=== PATIENT | male | born 1930 | race Caucasian/White ===

== ENCOUNTER → 2016-09-12 | Outpatient (CLI) | payer MEDICARE, OTHER ==
[~2016-09-12] MED LIST: ALBUTEROL0.09 MG/A2 INH; ASPIRIN81 M2 PO; ATIVAN0.5 MG PO; AUGMENTIN 875875 MG PO; BACITRACIN500 U/G1; BACTRIM DS 8001 TA1 PO; BUDESONIDE INH; CAPSAICIN T; CHEST CONGESTI400 MG PO; CIPRO500 MG PO; CITALOPRAM HYDR10 MG PO; CITALOPRAM10 MG PO; DELTASONE20 MG; DELTASONE20 MG PO; DESYREL100 MG PO; DIABETIC TUSSI400 MG PO; DIFLUCAN200 MG PO; DOCUSATE CALCI100 MG PO; DOCUSATE SOD100 MG PO; ECPIRIN325 MG PO; Ecotrin325 MG PO; FLAGYL500 MG PO; FLOMAX0.4 MG PO; FLORASTOR 33 MG1 CAP PO; FLUONAZOLE100 M1 PO; FOLIC ACID1 MG PO; GABAPENTIN300 MG PO; GUAFENESIN400 MG PO; GUAIFENESIN400 MG PO; HYDROCODONE BIT1 T11 PO; HYDROXYZINE HCL25 M1 PO; HYDROXYZINE PAM25 M1 PO; KEFLEX500 MG PO; KENALOG 0.025%15 G1 T; KENALOG 0.1%80 GM T; LANAMINS1 CAP PO; LASIX40 MG PO; LEVAQUIN750 M1 PO; LISINOPRIL PO; LISINOPRIL5 MG PO; LORAZEPAM1 MG PO; Lovenox40 MG/0.4 SC; METOPROLOL25 MG; METRONIDAZOLE500 M1 PO; MIRALAX17 GM/PACK PO; MOBIC15 MG PO; MONTELUKAST SOD10 MG PO; MOTRIN800 MG PO; MULTI VITAMIN/M1 TAB PO; MULTI-VITAMIN W1 TA2 PO; NATURE'S BLEND F1 MG PO; NEURONTIN300 MG PO; NITROQUICK0.4 MG SL; NORCO 7.5-3251 EACH PO; OMEPRAZOLE D/R20 MG; OMEPRAZOLE MAGN20 M1 PO; OMEPRAZOLE20 MG PO; OMEPRAZOLE40 MG PO; OXYCODONE15 MG PO; PREDNISONE10 MG PO; PROVENTIL0.09 MG/A1 INH; PROVENTIL0.09 MG/AC IH; PULMICORT180 MCG/AC IH; Percocet 325 MG1 TAB PO; REFRESH PLUS 00.4 M1 OP; REQUIP1 MG PO; RIFAMPIN300 MG PO; ROPINIROLE HYDRO1 MG PO; Ranitidine Hyd150 MG PO; SENNA8.6 MG PO; SIMVASTATIN80 MG PO; SINGULAIR10 MG PO; SKELAXIN800 MG PO; STOOL SOFTENER240 M2 PO; SYMBICORT1 AE1 PO; TERAZOSIN HCL1 M1 PO; TERAZOSIN HCL5 M1 PO; TERAZOSIN5 MG PO; TRAMADOL HCL50 MG PO; TRAZADONE HYDR100 MG PO; TRAZODONE100 MG PO; TRAZODONE150 MG PO; TRIAMCINOLONE; VANCOCIN1000 MG/25 IV; ZOFRAN4 MG PO; [UNRECOGNIZED DRUG - CODE] PO; [UNRECOGNIZED DRUG - CODE] T; [UNRECOGNIZED DRUG - CODE] TP; [UNRECOGNIZED DRUG - OTHER]; [UNRECOGNIZED DRUG - OTHER]
== END | disposition home or self-care (01) ==
LOC: RAD 13:01
DX: M47.896 Other spondylosis, lumbar region (principal); M48.06 Spinal stenosis, lumbar region; M46.06 Spinal enthesopathy, lumbar region; Z96.642 Presence of left artificial hip joint

== ENCOUNTER 2016-10-25 10:27 | Emergency (ER) | payer OTHER, MEDICARE ==
[~2016-10-25] VITALS: Ht 187.9 cm; Wt 108.9 kg
[2016-10-25 11:35] LABS: BASO # 0.1 10*3/uL (0.0-0.1); BASO % 1.2 % (0.0-1.0); EOS # 0.3 10*3/uL (0.0-0.4); EOS % 4.4 % (1.0-4.0); HEMATOCRIT 40.8 % (42.0-52.0); HEMOGLOBIN 13.7 g/dl (14.0-18.0); LYMPH # 0.8 10*3/uL (1.3-4.4); LYMPH % 14.5 % (27.0-41.0); MEAN CELL VOLUME 94.2 fl (80.0-94.0); MEAN CORPUSCULAR HGB 31.6 pg (27.0-31.0); MEAN CORPUSCULAR HGB CONC 33.6 g/dl (33.0-37.0); MONO # 0.3 10*3/uL (0.1-1.0); NEUT # 4.2 10*3/uL (2.3-7.9); NEUT % 73.5 % (47.0-73.0); PLATELET COUNT AUTOMATED 113 10*3/uL (130-400); RED BLOOD COUNT 4.33 10*6/uL (4.50-5.90); RED CELL DISTRI WIDTH 12.5 % (0-14.5); WHITE BLOOD COUNT 5.7 10*3/uL (4.8-10.8)
[2016-10-25 11:49] LABS: ALBUMIN 3.6 gm/dl (3.1-4.5); ALKALINE PHOSPHATASE 73 U/L (45-117); BUN 10 mg/dl (7-24); CHLORIDE 105 mmol/L (98-107); POTASSIUM 3.8 mmol/L (3.5-5.1); SGOT/AST 19 IU/L (3-35); SGPT/ALT 24 U/L (12-78); SODIUM 144 mmol/L (136-145); TOTAL PROTEIN 6.7 gm/dL (6.4-8.2)
[2016-10-25] MEDS ORDERED: VIBRAMYCIN100 MG PO (13:08)
== END 2016-10-25 13:58 | disposition home or self-care (01) ==
LOC: ED 10:27
PROVIDERS: Emergency Medicine
DX: J40 Bronchitis, not specified as acute or chronic (principal); J44.9 Chronic obstructive pulmonary disease, unspecified; I11.0 Hypertensive heart disease with heart failure; I50.9 Heart failure, unspecified; K21.9 Gastro-esophageal reflux disease without esophagitis; E78.5 Hyperlipidemia, unspecified; J45.909 Unspecified asthma, uncomplicated; E11.9 Type 2 diabetes mellitus without complications; Z88.8 Allergy status to other drugs, medicaments and biological substances; Z91.041 Radiographic dye allergy status; Z79.899 Other long term (current) drug therapy; Z87.891 Personal history of nicotine dependence

== ENCOUNTER 2017-03-31 15:28 | Inpatient (IN) | payer OTHER ==
[~2017-03-31] VITALS: Ht 187.9 cm; Wt 105.9 kg
--- NOTE | ~2017-03-31 | PR ---
[place], [place] PROGRESS NOTE NAME: [facility]ATT [facility] [id number] UNIT #: [id number] ROOM: 506 DOCTOR: BILLY ALONSO MD,HARINDER BIRTHDATE: [birth year] DOS: 04/03/2017 PULMONARY FOLLOWUP SUBJECTIVE: He has been noted comfortable with ongoing acute distress. The patient denies symptoms of chest pain. The coughing and shortness of breath and other symptoms, has been improving. It has been noted dysphagia for the patient with a past history of esophageal narrowing, which are noted benign. PHYSICAL EXAMINATION: VITAL SIGNS: Normal temperature, respiratory rate 20, heart rate 77, blood pressure 128/76. The pulse oxygen saturation on 3 liters nasal cannula was 94% saturation. HEENT: Moderate obesity. NECK: Supple. CARDIOVASCULAR: S1, S2 audible. LUNGS: Noted without any crackles. Scattered expiratory wheezing in the lower lungs. ABDOMEN: Soft, nontender with chronic obesity. Bowel sounds present. EXTREMITIES: Without edema. LABORATORY DATA: CBC of patient this morning noted normal. BMP: Glucose 117, normal BUN and creatinine. IMPRESSION: Acute exacerbation of bronchial asthma impaction and mucus for the patient in the lower lungs is clinically improving of all the symptoms. PLAN OF TREATMENT: Benign esophageal stricture, would be requiring assessment by the GI Services. Continue current corticosteroids, bronchodilators, oxygen supplementation. Other therapy, plan of management. Usual care. HARINDER CERVANTES MD CM:PNTRANS [id number] HARINDER ALONSO MD 04/04/17 0022 interface
--- NOTE | ~2017-03-31 | EKG ---
[place], [place] ELECTROCARDIOGRAM REPORT NAME: MARLY PRATT UNIT #: [id number] ROOM: 506 DOCTOR: SUZANNE VARGAS MD BIRTHDATE: [birth year] DOS: 03/31/2017 TIME: 1540 hours. Normal sinus rhythm at 97 beats per minute. Left anterior hemiblock. An abnormal ECG. No previous tracing is available for comparison. TIME: 1833 hours. Normal sinus rhythm at 80 beats per minute. An intraventricular conduction defect including left anterior hemiblock. An abnormal ECG. No significant change from ECG done about 3 hours earlier. TIME: 2136 hours. Normal sinus rhythm at 81 beats per minute. An intraventricular conduction defect including left anterior hemiblock. An abnormal ECG. No significant change from the ECG done about 3 hours earlier. TIME: 0412 hours. Sinus tachycardia at 112 beats per minute. PACs are also noted. An intraventricular conduction defect including left anterior hemiblock. Abnormal ECG. No significant change from the ECG done about 7 hours earlier. [place], [place] ELECTROCARDIOGRAM REPORT NAME: MARLY PRATT [place] UNIT #: [id number] ROOM: 506 DOCTOR: SUZANNE VARGAS MD BIRTHDATE: [birth year] SUZANNE VARGAS MD CM:EKGRPT:ELECTROCARDIOGRAM REPORT 1654 28 SUZANNE VARGAS MD
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
--- NOTE | ~2017-03-31 | O ---
[place], [place] OPERATIVE NOTE NAME: MARLY PRATT UNIT #: [id number] ROOM: 506 DOCTOR: KKEE GARCIA MD BIRTHDATE: [birth year] DOS: 04/03/2017 INDICATIONS: An 87-year-old gentleman who presented with multiple complaints, among which has been shortness of breath, concern about pneumonic infiltrate, dysphagia, history of vocal cord carcinoma and resection, and dysphagia and dyspepsia. PROCEDURE: Today's procedure part of investigation is panendoscopy plus esophageal brush and antral biopsy of the ulcers. PREMEDICATION: Versed and Diprivan. SCOPE: Olympus forward-viewing gastroscope Q10 video. REPORT: After putting the patient in left lateral position and application of lubricant to the scope, the scope was introduced. Thereafter, under direct visualization, passed through the length of esophagus without difficulty. Interrupted esophageal varicosities from thoracic to distal esophagus was noticed. These are about class B to C as well as esophagitis secondary to moniliasis, mostly in upper esophagus, noticed photographed. Pine for fungal study was done. Gastric pouch was entered. Multiple linear antral ulceration and antritis was identified. Biopsy obtained. Duodenal bulb, second and third part within normal limits. The patient extubated, tolerated the procedure well. IMPRESSION: 1. Antral ulcerations and antritis. 2. Esophageal moniliasis status for fungal study with brush. 3. Esophageal varicosities. 4. Small hiatal hernia. PLAN AND DISCUSSION: Continuation with beta chrissy, Protonix 40 mg daily, Diflucan 100 mg daily x 1 week and supportive management. No esophageal dilation was undertaken due to the presence of esophageal varicosities. [place], [place] OPERATIVE NOTE NAME: MARLY PRATT UNIT #: [id number] ROOM: 506 DOCTOR: KEKE GARCIA MD BIRTHDATE: [birth year] KEKE GARCIA MD CM:OPRECORD:OPERATIVE NOTE 1524 1536 KEKE GARCIA MD 04/03/17 1535 interface
--- NOTE | ~2017-03-31 | CON ---
[place], [place] REPORT OF CONSULTATION NAME: MARLY PRATT UNIT #: [id number] ROOM: 506 DOCTOR: KEKE GARCIA MD BIRTHDATE: [birth year] DOS: 04/03/2017 HISTORY OF PRESENT ILLNESS: The patient is an 87-year-old, who has presented with dysphagia, atypical chest pain, status post cardiac stress test and evaluation by care transition coordinator and declaring clear for endoscopic assessment. The patient has been complaining of epigastric and left pectoral pain with radiation to left shoulder as well as dysphagia, history of vocal cord carcinoma, status post radiation therapy in 2014. His panel of workup including rapid flu was negative, white blood cell 5, H and H 14 and 41, lactic acid was 1.7, INR 1.1. Comprehensive metabolic panel, GFR greater than 60. Initial elevated troponin, considered unremarkable. Liver function test normal. Chest x-ray was assessed, borderline cardiomegaly. Troponin followup continuously remains slightly elevated. Hemoglobin A1c elevated at 5.7. CTA of the chest: No pulmonary embolism, lower lobe predominant diffuse bronchial wall thickening with calcification of bilateral lower lobe rhonchi was noticed. Blood cultures remain negative. CBC differential was reassessed. No acute drop in H and H. Myocardial perfusion studies have been done and found resolved, clear for endoscopic assessment. PAST MEDICAL HISTORY: Associated with COPD, lumbar stenosis, chronic hypoxemia, restless leg, depression, sleep apnea, bronchial asthma. PAST SURGICAL HISTORY: Associated with cholecystectomy, appendectomy, abdominal aortic aneurysm repair, inguinal hernia repair. SOCIAL HISTORY: Nonalcohol consumer, nonsmoker at the present time. FAMILY HISTORY: Noncontributory. MEDICATION: List was reviewed. ALLERGIES: EFFEXOR, FELODIPINE, ADENOSINE, AND IVP DYE. REVIEW OF SYSTEMS: In general: HEENT: Denies double vision, blurred vision. RESPIRATORY: Admits chronic shortness of breath. CARDIOVASCULAR: Denies chest pain. DIGESTIVE SYSTEM: Dysphagia to solid food with sensation of foreign body in the upper esophagus, hypopharynx area. PHYSICAL EXAMINATION: GENERAL: Obese patient. VITAL SIGNS: Stable. HEENT: Head normocephalic, nontraumatic. Eyes: Pupils round, reactive. Sclerae nonicteric. Conjunctivae pink. Mouth free of aphthae ulcer or thrush. NECK: Supple. No thyromegaly. No cervical lymphadenopathy. CHEST: Symmetric anatomy, equal expansion. No wheeze; however, a few crackles bibasilar was noticed. ABDOMEN: Obese, large, soft. No hepato-organomegaly. Scar of surgery was noticed. No rebound effect tenderness. [place], [place] REPORT OF CONSULTATION NAME: MARLY PRATT UNIT #: [id number] ROOM: 506 DOCTOR: KEKE GARCIA MD BIRTHDATE: [birth year] EXTREMITIES: No cyanosis. No pedal edema. NEUROLOGIC: Alert, oriented to time, place, person. LABORATORY DATA: Reviewed. Records reviewed. Data reviewed. IMPRESSION: Dysphagia, otherwise chronic obstructive pulmonary disease, oxygen dependency, vocal cord carcinoma, status post radiation therapy. Other adjunctive diagnoses are restless leg, lumbar stenosis, depression, sleep apnea, all have been recognized. PLAN AND DISCUSSION: I am going to proceed with endoscopic assessment and discussion not only we are going to be concerned about esophageal moniliasis, also we are going to have a distant look at the vocal cords and upper esophagus to assure there is no radiation-induced stricture. Workup is in progress. OTHER ADJUNCTIVE DIAGNOSES: As outlined in the above paragraph of past medical and surgical history. KEKE GARCIA MD CM:CONSTR:REPORT OF CONSULTATION 1501 04/04/17 0148 interface
--- NOTE | ~2017-03-31 | ST ---
[place], [place] EXERCISE STRESS TEST REPORT [id number] UN[facility] #: [id number] ROOM: 506 DOCTOR: VANDA CEDENO MD BIRTHDATE: [birth year] DOS: 04/03/2017 LEXISCAN STRESS EKG REFERRING PHYSICIAN: Lakia Pizarro DO INDICATION: Precordial chest pain. The patient underwent standard protocol Lexiscan stress EKG. The patient's baseline EKG showed normal sinus rhythm with his heart rate of 72 beats per minute with a blood pressure of 116/78. The patient had maximum heart rate of 84 beats per minute with a blood pressure of 100/54. The patient had no chest pain, no EKG changes. No arrhythmias were noted. SUMMARY OF FINDINGS: Unremarkable Lexiscan stress EKG. Please see separate report for perfusion scan results. VANDA CEDENO MD CM:STRESS:EXERCISE STRESS TEST REPORT [id number] VANDA CEDENO MD
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
--- NOTE | ~2017-03-31 | CON ---
[place], [place] REPORT OF CONSULTATION [id number] UNIT #: [id number] ROOM: 506 DOCTOR: HARINDER HERNANDEZ MD BIRTHDATE: [birth year] DOS: 04/02/2017 CONSULTATION REQUESTED BY: Hospitalist Service. REASON FOR CONSULTATION: Current chest pain and shortness of breath. HISTORY OF PRESENT ILLNESS: This is an 87-year-old white male known to me with past history of COPD and bronchial asthma. The patient admitted to the hospital on 03/31/2017. He was described nonspecific, anterior mid chest pain described moderate severe at time with significant shortness of breath. The patient presented to the Emergency Room on the of this month, was assessed and currently hospitalized for further medical management. He denies any symptoms of chest pain. Denies symptoms of hemoptysis. The chest pain previous noted was resolved. The patient denies any symptoms of sputum expectoration, mild cough was noted. He also reports some symptoms of wheezing as well. The patient denies any symptoms of chest trauma. REVIEW OF SYSTEMS: CONSTITUTIONAL SYMPTOMS: Denies any symptoms of fever or chills. Complaint of fatigue and diaphoresis with the current chest pain, which has been resolved. EYES: Denies any burning, redness, or tenderness. EARS, NOSE, THROAT SYMPTOMS: Denies sore throat, hoarseness, otalgia, postnasal drainage or epistaxis. CARDIOVASCULAR: Denies any angina pain. Reported palpitation. The patient on admission, which has been better. MUSCULOSKELETAL: Denies any acute joint pain, redness, or tenderness. SKIN: No lesions or rashes. CENTRAL NERVOUS SYSTEM: No gross focal deficit. It was intact. Cranial nerves 2-12 intact. PAST MEDICAL HISTORY: The patient was known with history of: 1. Bronchial asthma. 2. COPD of moderate severity. 3. Lumbar stenosis. 4. Chronic hypoxic respiratory failure. 5. History of depression. 6. Restless legs syndrome. 7. Obstructive sleep apnea disorder. The [facility]. PAST SURGICAL HISTORY: 1. Appendectomy. 2. Cholecystectomy. 3. Abdominal aortic aneurysm repair. 4. Left inguinal hernia repair as well. SOCIAL HISTORY: The patient is , has 4 children. Denies history of alcohol use, illicit drug use. Denies any history of the occupation related pulmonary exposure. [place], [place] REPORT OF CONSULTATION NAME: MARLY PRATT UNIT #: [id number] ROOM: 506 DOCTOR: HARINDER HERNANDEZ MD BIRTHDATE: [birth year] FAMILY HISTORY: The patient's father at 65 due to complications of COPD. Mother at the age of 8080 years old from natural causes. MEDICATIONS: Which were listed on admission by the primary care physician for the patient use of Tylenol p.r.n., Colace, folic acid, gabapentin, Singulair, multivitamin, Requip, trazodone and tramadol. DRUG ALLERGIES: NOTED ALLERGY: 1. ADENOSINE. 2. FELODIPINE. 3. EFFEXOR. 4. IVP DYE. PHYSICAL EXAMINATION: GENERAL: An 87-year-old male currently sitting on the chair without any acute distress. Height of 6 feet 2 inches, weight of 233 pounds, BMI 30. VITAL SIGNS: Normal temperature, respiratory rate recorded as 18-20, heart rate of 120. The highest previous noted, but current heart rate noted 88 beats per minute. The respiratory rate range between 20. Blood pressure 122/67 and 117/59, pulse oxygen saturation 3 liters cannula 93% saturation recorded. HEAD, EARS, EYES, NOSE AND THROAT: Moderate obesity. Head was atraumatic. Eye nonicterus. Decreased posterior pharyngeal space. CARDIOVASCULAR: S1, S2 is audible. LUNGS: The patient was noted with moderate reduction in the breath sounds bilaterally with minimal crackles noted in the lung bases. There were no wheezing heard. ABDOMEN: Soft. EXTREMITIES: Without any edema. Visible skin, no lesions or rashes. CENTRAL NERVOUS SYSTEM: Intact. MUSCULOSKELETAL SYMPTOMS: Without any acute deformities. LABORATORY DATA: Influenza A and B, nasal washing antigen negative. On admission 03/31, CBC, hemoglobin was normal, hematocrit 41.9, platelet count and WBC count normal. PT/PTT on 03/31, normal. Lactic acid on 03/31, normal. BMP on 03/31, was normal. Troponin noted minimally elevated at 0.03. The highest troponin noted 3 sets at 0.074 on 03/31. The blood culture for on 03/31/2017, showed no bacterial growths. Review of the radiology data: The chest x-ray that was done on 04/01/2017, shows no acute major abnormality, increased interstitial marking noted of unknown significance, changes of COPD. IMPRESSION: CT of the chest was completed this morning, was personally reviewed as well, it does not show any evidence of pulmonary embolism. Mucous infection was suspected in the lower lobe subsegment branches more on the right than the left side. There were no pleural effusions of significance. IMPRESSION: 1. The patient who had been currently admitted to the hospital with a nonspecific chest pain, exact etiology cannot be pinpointed, noted with some mucus impaction of the airways at the bottom may be suggestive of acute exacerbation of bronchial asthma. The patient with acute possible bronchitis. [place], [place] REPORT OF CONSULTATION NAME: MARLY PRATT UNIT #: [id number] ROOM: [facility] DOCTOR: HARINDER HERNANDEZ MD BIRTHDATE: [birth year] There was no evidence of clinical pneumonia. 2. The patient with moderate obesity with history of obstructive sleep apnea disorder, known problem and acute chronic, hypoxic respiratory failure, remains stable. PLAN OF MANAGEMENT: The patient will be started on the Mucinex 1200 mg p.o. b.i.d. and the use of the flutter valve. Sputum will be collected for Gram stain and culture. Other additional treatment changes might be done based on the progression of the illness. Usual care. All other supportive care, plan of management and therapies. Symptomatic management monitoring. The significance of abnormal troponin was unknown. Cardiology consultation to be done if not obtained to get their opinion about the abnormal troponins. HARINDER CERVANTES MD CM:CONSTR:REPORT OF CONSULTATION 1302 04/02/172024 interface
[~2017-03-31 15:28] MED LIST changes: +VIBRAMYCIN100 MG PO
[2017-03-31 15:34] VITALS: BP 124/84
[2017-03-31 16:05] VITALS: BP 128/82
[2017-03-31 16:19] LABS: BASO # 0.1 10*3/uL (0.0-0.1); EOS # 0.2 10*3/uL (0.0-0.4); EOS % 4.7 % (1.0-4.0); HEMATOCRIT 41.9 % (42.0-52.0); HEMOGLOBIN 14.2 g/dl (14.0-18.0); LYMPH % 18.5 % (27.0-41.0); MEAN CELL VOLUME 94.8 fl (80.0-94.0); MEAN CORPUSCULAR HGB 32.1 pg (27.0-31.0); MEAN CORPUSCULAR HGB CONC 33.9 g/dl (33.0-37.0); MEAN PLATELET VOLUME 9.4 fl (9.6-12.3); MONO # 0.5 10*3/uL (0.1-1.0); MONO % 8.8 % (3.0-9.0); NEUT # 3.4 10*3/uL (2.3-7.9); NEUT % 66.6 % (47.0-73.0); PLATELET COUNT AUTOMATED 111 10*3/uL (130-400); RED BLOOD COUNT 4.42 10*6/uL (4.50-5.90); RED CELL DISTRI WIDTH 12.2 % (0-14.5); WHITE BLOOD COUNT 5.1 10*3/uL (4.8-10.8)
[2017-03-31 16:27] LABS: ACT PARTIAL THROMBO TIME 26.5 SECONDS (20.8-31.5); INTERNATIONAL NORM RATIO 1.1 (2.0-3.5)
[2017-03-31 16:35] LABS: BUN 14 mg/dl (7-24); CHLORIDE 106 mmol/L (98-107); CREATININE 0.76 mg/dL (0.70-1.30); POTASSIUM 3.6 mmol/L (3.5-5.1); SGOT/AST 21 IU/L (3-35); SGPT/ALT 22 U/L (12-78); SODIUM 143 mmol/L (136-145); TOTAL PROTEIN 6.8 gm/dL (6.4-8.2)
[2017-03-31 16:38] LABS: ALKALINE PHOSPHATASE 63 U/L (45-117)
[2017-03-31 16:40] LABS: TROPONIN I 0.083 ng/ml (<0.045)
[2017-03-31 17:11] VITALS: BP 123/67
[2017-03-31 17:21] VITALS: BP 123/67
[2017-03-31 18:30] VITALS: BP 130/78
[2017-03-31 19:20] VITALS: BP 160/92
[2017-04-01] VITALS (8 sets, daily range): BP systolic 121–174; BP diastolic 62–90
[2017-04-01 06:05] LABS: HEMATOCRIT 40.2 % (42.0-52.0); HEMOGLOBIN 13.8 g/dl (14.0-18.0); LYMPH # 0.6 10*3/uL (1.3-4.4); LYMPH % 10.5 % (27.0-41.0); MEAN CELL VOLUME 94.6 fl (80.0-94.0); MEAN CORPUSCULAR HGB 32.5 pg (27.0-31.0); MEAN CORPUSCULAR HGB CONC 34.3 g/dl (33.0-37.0); MEAN PLATELET VOLUME 9.8 fl (9.6-12.3); MONO # 0.1 10*3/uL (0.1-1.0); NEUT # 5.2 10*3/uL (2.3-7.9); PLATELET COUNT AUTOMATED 109 10*3/uL (130-400); RED BLOOD COUNT 4.25 10*6/uL (4.50-5.90); RED CELL DISTRI WIDTH 12.3 % (0-14.5); WHITE BLOOD COUNT 5.9 10*3/uL (4.8-10.8)
[2017-04-01 06:08] LABS: BUN 12 mg/dl (7-24); CHLORIDE 103 mmol/L (98-107); CHOLESTEROL 212 mg/dL (<200); CREATININE 0.91 mg/dL (0.70-1.30); FREE T4 0.85 ng/dl (0.76-1.46); HDL CHOLESTEROL 51 mg/dl (40-60); LDL CHOLESTEROL 146 mg/dL (9-159); PHOSPHOROUS 2.2 mg/dL (2.5-4.9); POTASSIUM 3.8 mmol/L (3.5-5.1); SODIUM 140 mmol/L (136-145); TRIGLYCERIDES 77 mg/dl (<150); VLDL CHOLESTEROL 15 mg/dL (6-40)
[2017-04-01 06:14] LABS: THYROID STIM HORMONE (HS) 0.586 uIU/ml (0.358-4.75)
[2017-04-01 07:32] LABS: VITAMIN D, 25-HYDROXY 23.6 ng/mL (30-100)
[2017-04-01] MEDS ORDERED: MONTELUKAST SOD10 MG PO (10:49)
[2017-04-01] MEDS ORDERED: NATURE'S BLEND F1 MG PO (10:52)
[2017-04-01] MEDS ORDERED: GABAPENTIN100 M2 PO (10:53)
[2017-04-01] MEDS ORDERED: ACETAMINOPHEN325 M2 PO (10:54)
[2017-04-02] VITALS: BP 117/59
[2017-04-02 07:17] LABS: BASO % 0.1 % (0.0-1.0); HEMATOCRIT 40.3 % (42.0-52.0); HEMOGLOBIN 13.7 g/dl (14.0-18.0); LYMPH # 0.9 10*3/uL (1.3-4.4); MEAN CELL VOLUME 95.3 fl (80.0-94.0); MEAN CORPUSCULAR HGB 32.4 pg (27.0-31.0); MONO # 0.2 10*3/uL (0.1-1.0); MONO % 2.2 % (3.0-9.0); NEUT # 9.5 10*3/uL (2.3-7.9); NEUT % 89.2 % (47.0-73.0); PLATELET COUNT AUTOMATED 115 10*3/uL (130-400); RED BLOOD COUNT 4.23 10*6/uL (4.50-5.90); RED CELL DISTRI WIDTH 12.5 % (0-14.5); WHITE BLOOD COUNT 10.6 10*3/uL (4.8-10.8)
[2017-04-02 07:39] LABS: BUN 17 mg/dl (7-24); CHLORIDE 102 mmol/L (98-107); CREATININE 0.86 mg/dL (0.70-1.30); PHOSPHOROUS 3.1 mg/dL (2.5-4.9); POTASSIUM 3.9 mmol/L (3.5-5.1); SODIUM 139 mmol/L (136-145)
[2017-04-02 08:00] VITALS: BP 122/67
[2017-04-02 12:00] VITALS: BP 125/71
[2017-04-02 16:00] VITALS: BP 114/58
[2017-04-02 19:58] VITALS: BP 127/61
[2017-04-03] VITALS (8 sets, daily range): BP systolic 109–160; BP diastolic 56–86
[2017-04-03 06:49] LABS: BASO % 0.1 % (0.0-1.0); HEMATOCRIT 41.9 % (42.0-52.0); HEMOGLOBIN 14.1 g/dl (14.0-18.0); LYMPH # 0.7 10*3/uL (1.3-4.4); LYMPH % 6.9 % (27.0-41.0); MEAN CELL VOLUME 94.8 fl (80.0-94.0); MEAN CORPUSCULAR HGB 31.9 pg (27.0-31.0); MEAN CORPUSCULAR HGB CONC 33.7 g/dl (33.0-37.0); MEAN PLATELET VOLUME 9.8 fl (9.6-12.3); MONO # 0.3 10*3/uL (0.1-1.0); MONO % 3.3 % (3.0-9.0); NEUT # 9.1 10*3/uL (2.3-7.9); NEUT % 88.8 % (47.0-73.0); PLATELET COUNT AUTOMATED 136 10*3/uL (130-400); RED BLOOD COUNT 4.42 10*6/uL (4.50-5.90); RED CELL DISTRI WIDTH 12.4 % (0-14.5); WHITE BLOOD COUNT 10.2 10*3/uL (4.8-10.8)
[2017-04-03 06:51] LABS: BUN 17 mg/dl (7-24); CHLORIDE 101 mmol/L (98-107); CREATININE 0.86 mg/dL (0.70-1.30); PHOSPHOROUS 2.4 mg/dL (2.5-4.9); POTASSIUM 3.5 mmol/L (3.5-5.1); SODIUM 140 mmol/L (136-145)
[2017-04-03] MEDS ORDERED: FLUCONAZOLE100 MG PO (16:42)
[2017-04-03] MEDS ORDERED: PANTOPRAZOLE SO40 MG PO (16:42)
[2017-04-03] MEDS ORDERED: ATORVASTATIN CA40 M1 PO (16:42)
[2017-04-03] MEDS ORDERED: LOPRESSOR25 MG PO (16:42)
[2017-04-03] MEDS ORDERED: PREDNISONE10 MG PO (16:42)
[2017-04-03] MEDS ORDERED: VIBRAMYCIN100 MG PO (16:42)
[2017-04-03] MEDS ORDERED: VITAMIN D-32000 UNIT PO (16:42)
== END 2017-04-03 18:47 | disposition short-term general hospital (02) | DRG 391 ==
LOC: ED 15:28 → EDHOLD 18:00 → 5E 18:00
PROVIDERS: Internal Medicine Nephrology; Nurse Practitioner Family; Student in an Organized Health Care Education/Training Program
PROC: 3E073KZ Introduction of Other Diagnostic Substance into Coronary Artery, Percutaneous Approach (ICD-10-PCS; principal; 2017-04-03)
PROC: 0DD18ZX Extraction of Upper Esophagus, Via Natural or Artificial Opening Endoscopic, Diagnostic (ICD-10-PCS; principal; 2017-04-03)
PROC: 0DB78ZX Excision of Stomach, Pylorus, Via Natural or Artificial Opening Endoscopic, Diagnostic (ICD-10-PCS; principal; 2017-04-03)
PROC: 4A02XM4 Measurement of Cardiac Total Activity, External Approach (ICD-10-PCS; principal; 2017-04-03)
DX: K21.9 Gastro-esophageal reflux disease without esophagitis (principal); J96.21 Acute and chronic respiratory failure with hypoxia; T17.890A Other foreign object in other parts of respiratory tract causing asphyxiation, initial encounter; B37.81 Candidal esophagitis; D69.6 Thrombocytopenia, unspecified; E83.39 Other disorders of phosphorus metabolism; R65.10 Systemic inflammatory response syndrome (SIRS) of non-infectious origin without acute organ dysfunction; I50.32 Chronic diastolic (congestive) heart failure; I85.00 Esophageal varices without bleeding; J44.1 Chronic obstructive pulmonary disease with (acute) exacerbation; J45.901 Unspecified asthma with (acute) exacerbation; E83.41 Hypermagnesemia; R13.10 Dysphagia, unspecified; I71.4 Abdominal aortic aneurysm, without rupture; J20.9 Acute bronchitis, unspecified; D75.89 Other specified diseases of blood and blood-forming organs; F32.9 Major depressive disorder, single episode, unspecified; E78.5 Hyperlipidemia, unspecified; F41.9 Anxiety disorder, unspecified; F43.10 Post-traumatic stress disorder, unspecified; R59.0 Localized enlarged lymph nodes; E66.9 Obesity, unspecified; Z96.642 Presence of left artificial hip joint; Z96.652 Presence of left artificial knee joint; X58.XXXA Exposure to other specified factors, initial encounter; M48.061 Spinal stenosis, lumbar region without neurogenic claudication; G25.81 Restless legs syndrome; G47.33 Obstructive sleep apnea (adult) (pediatric); K25.9 Gastric ulcer, unspecified as acute or chronic, without hemorrhage or perforation; Z66 Do not resuscitate; Z51.5 Encounter for palliative care; K29.60 Other gastritis without bleeding; K44.9 Diaphragmatic hernia without obstruction or gangrene; I11.0 Hypertensive heart disease with heart failure; I49.1 Atrial premature depolarization; Z85.818 Personal history of malignant neoplasm of other sites of lip, oral cavity, and pharynx; Z99.81 Dependence on supplemental oxygen; Z88.8 Allergy status to other drugs, medicaments and biological substances; Z91.041 Radiographic dye allergy status; Z79.899 Other long term (current) drug therapy; Z90.49 Acquired absence of other specified parts of digestive tract; Z81.2 Family history of tobacco abuse and dependence; Z83.79 Family history of other diseases of the digestive system; Z82.49 Family history of ischemic heart disease and other diseases of the circulatory system; Y93.89 Activity, other specified; Y92.89 Other specified places as the place of occurrence of the external cause; Y99.8 Other external cause status; Z92.3 Personal history of irradiation; I25.2 Old myocardial infarction; Z68.30 Body mass index [BMI] 30.0-30.9, adult

== ENCOUNTER → 2017-06-05 | Outpatient (CLI) | payer OTHER, MEDICARE ==
[~2017-06-05] MED LIST changes: +ACETAMINOPHEN325 M2 PO; +ATORVASTATIN CA40 M1 PO; +FLUCONAZOLE100 MG PO; +GABAPENTIN100 M2 PO; +LOPRESSOR25 MG PO; +PANTOPRAZOLE SO40 MG PO; +VITAMIN D-32000 UNIT PO
== END | disposition home or self-care (01) ==
LOC: CT 11:00
DX: I70.90 Unspecified atherosclerosis (principal)

== ENCOUNTER 2017-07-19 09:37 | Inpatient (IN) | payer OTHER, MEDICARE ==
[~2017-07-19] VITALS: Ht 185.4 cm; Wt 108.4 kg
--- NOTE | ~2017-07-19 | PR ---
[place], [place] PROGRESS NOTE NAME: MARLY PRATT UNIT #: [id number] ROOM: 406 DOCTOR: HARINDER HERNANDEZ MD BIRTHDATE: [birth year] DOS: 07/22/2017 PULMONARY PROGRESS NOTE SUBJECTIVE: The patient remains the same as previously, stated he has another episode of chest pain this morning. The troponin for the patient was redone noted mild elevation of troponin. He has not been noted symptoms of chest pain. Nonproductive cough remains. Shortness of breath was noted with exertion, not present at rest. The patient was continued on therapeutic unfractionated heparin. OBJECTIVE: VITAL SIGNS: For the patient, which have been recorded showed normal temperature, respiratory rate of 20, heart rate of 91, blood pressure 155/70. The pulse oxygen saturation for the patient was recorded as 96 percent saturation 3 liters cannula. HEENT: Head was atraumatic. Eyes: No icterus. NECK: Supple. CARDIOVASCULAR: S1, S2 audible. LUNGS: The patient was noted without any wheezing or crackles at present time. Breaths are noted mildly diminished bilaterally. ABDOMEN: Soft, nontender, bowel sounds present. EXTREMITIES: Without any acute edema. IMPRESSION: 1. The patient was noted with acute deep venous thrombosis of lower extremity. CT scan of the chest for the patient has done. CT yesterday does not show any evidence of pulmonary embolism. 2. Abnormal troponins with history of coronary artery disease and other medical illnesses. PLAN OF MANAGEMENT: No changes in the plan of care for the patient pulmonary standpoint would be considered. Continue current conservative treatment. Bronchoscopy which was previously canceled for the patient remains canceled at this time. Continuation of the heparin for the patient and further anticoagulation as determined by the Cardiology Services. [place], [place] PROGRESS NOTE NAME: MARLY PRATT UNIT #: [id number] ROOM: 406 DOCTOR: HARINDER HERNANDEZ MD BIRTHDATE: [birth year] HARINDER CERVANTES MD CM:PNTRANS [id number] HARINDER ALONSO MD 07/23/17 0027 interface
--- NOTE | ~2017-07-19 | PR ---
[place], [place] PROGRESS NOTE NAME: MARLY PRATT [facility] #: [id number] UNIT #: [id number] ROOM: 406 DOCTOR: BILLY ALONSO MD,HARINDER BIRTHDATE: [birth year] DOS: 07/21/2017 SUBJECTIVE: The patient has been noted to be about the same. 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 He has been noted with elevated troponins, which are noted mildly. The patient has been treated for acute deep venous thrombosis of the lower extremity as well. V/Q scan was noted without any evidence suggestive of pulmonary embolism. The patient reported symptoms of cough. The bronchoscopy, which was scheduled for the patient, was canceled because of the symptoms. He has not been noted with any symptoms of hemoptysis. Denies symptoms of abdominal pain. Denies any acute edema or pain of the lower extremities today. He denies symptoms of nausea, vomiting, diarrhea, dizziness, or headache. Remaining systems were reviewed , they were noted all negative. OBJECTIVE: VITAL SIGNS: This morning at 0800 hours, temperature normal, respiratory rate 20, heart rate 91, blood pressure 127/75. Pulse oxygen saturation on 2 liters nasal cannula is 94%. HEENT: Examination shows head was atraumatic. Eyes nonicterus. NECK: Supple. CARDIOVASCULAR: S1, S2 is audible. LUNGS:. The patient was noted without any crackles. Occasional wheezing. ABDOMEN: Soft, nontender, bowel sounds present. EXTREMITIES: Without any new changes. SKIN: Visible skin, no lesions or rashes. MUSCULOSKELETAL: Without any acute deformities. CENTRAL NERVOUS SYSTEM: Cranial nerves 2-12 intact. LABORATORY DATA: Sputum culture of the patient from 07/20/2017 shows Gram stain, moderate white blood cells, moderate epithelial cells, many gram-positive cocci in pairs, chains and clusters, few gram-negative bacilli with pending culture results. CBC today, WBC count was normal, hemoglobin and hematocrit normal, platelet count was noted as normal. Troponin is 0.326. Blood culture of the patient, which was done on 07/19/2017 showed no bacterial growth. IMPRESSION: 1. The patient who has been currently noted with acute deep venous thrombosis of the left lower extremity. 2. Chest pain, elevated troponin, possibility of pulmonary embolism could be considered. The V/Q scan was noted with low probability on 07/19/2017. PLAN OF MANAGEMENT: Continue to manage the patient's current cough with symptomatic management. Bronchoscopy already canceled. Bronchodilator administration. Continue anticoagulation. The patient was switched to the unfractionated therapeutic heparin. The patient's Lovenox was discontinued previously. All other supportive therapy, plan of management and care plan. Usual treatment. Supportive care. [place], [place] PROGRESS NOTE NAME: MARLY PRATT [facility] [id number] UNIT #: [id number] ROOM: [facility] DOCTOR: HARINDER HERNANDEZ MD BIRTHDATE: [birth year] HARINDER CERVANTES MD CM:PHILIP [id number] HARINDER ALONSO MD 07/22/17 0110 interface
--- NOTE | ~2017-07-19 | PR ---
[place], [place] PROGRESS NOTE NAME: MARLY PRATT UNIT #: [id number] ROOM: 406 DOCTOR: BILLY ALONSO MD,HARINDER BIRTHDATE: [birth year] DOS: 07/23/2017 PULMONARY PROGRESS NOTE SUBJECTIVE: He has not been noted any ongoing acute complaints, resting comfortably. Remained on the intravenous heparin who was planned for transfer to [facility] for further cardiac workup. OBJECTIVE: VITAL SIGNS: Normal temperature, respiratory rate 20, heart rate 84, blood pressure 124/73. The pulse oxygen saturation 3 liters cannula 97% saturation. HEENT: Examination shows head was atraumatic. Eyes nonicterus. NECK: Supple. CARDIOVASCULAR: S1, S2 is audible. LUNGS: Noted with [id number] decreased breath sounds without wheeze or crackles. ABDOMEN: Soft, nontender. EXTREMITIES: Without any acute edema. IMPRESSION: 1. The patient with acute tracheobronchitis noted with the coughing. 2. Abnormal troponin. 3. Deep venous thrombosis of the lower extremities. The patient treated with the heparin. PLAN OF TREATMENT: No changes in the plan of care for the patient pulmonary standpoint. Continuation of current plan of treatment without any changes. HARINDER CERVANTES MD CM:PNTRANS [id number] HARINDER ALONSO MD 07/23/17 2313 interface
--- NOTE | ~2017-07-19 | PR ---
[place], [place] PROGRESS NOTE NAME: MARLY PRATT [facility] #: [id number] UNIT #: [id number] ROOM: 406 DOCTOR: TOMMIE KENNEDY MD BIRTHDATE: [birth year] DOS: 07/23/2017 SUBJECTIVE: the patient was seen today at his bedside, 07/23/2017, with his and daughter in attendance. He is an 87-year-old man with multiple medical problems, who has had chest discomfort and mild elevation in troponin this hospitalization. A stress test done in March showed no ischemia, but an echocardiogram does show severe aortic stenosis. His electrocardiogram is uninterpretable for acute ischemia. He has been having episodes of recurrent chest discomfort. At first we thought that this might be due to a pulmonary embolism since he does present with a new left lower extremity DVT. However, despite multiple episodes of chest pain, a CT angiogram of the chest was normal. I think therefore that this is most likely unstable angina exacerbated by his aortic stenosis. I have discussed his situation with the administrative hearing officer at [facility] and they have agreed to proceed with a catheterization on 07/24/2017. Since I adjusted his medications yesterday and added beta blockers, he feels better and has not had any further chest discomfort. PHYSICAL EXAMINATION: VITAL SIGNS: His pulse is 84 and regular, blood pressure is 124/73. He is afebrile. He weighs 108.4 kg and has a body mass index of 31.5. NECK: Supple. He has no jugular distention. Carotids have slow upstrokes with transmitted murmurs into the carotids bilaterally. CHEST: Clear. HEART: Has a regular rhythm with a grade 3/6 late peaking systolic ejection murmur along the left sternal border. The second heart sound is decreased, but still present. PMI is not displaced and there is no precordial heave, lift or thrill. ABDOMEN: Soft and normally active. EXTREMITIES: Showed no edema. IMPRESSION: 1. Recurrent chest pain with elevation of troponin, most likely due to unstable angina/non-ST elevation myocardial infarction. 2. Severe aortic stenosis. 3. Deep venous thrombosis documented this hospitalization without any evidence for pulmonary embolism. The patient has been anticoagulated for 4 days. PLAN: The patient is being transferred to [facility] in [place] for cardiac catheterization and for consideration of aortic valve replacement. I thank the hospitalist physicians for asking our advice regarding his care. [place], [place] PROGRESS NOTE NAME: MARLY PRATT UNIT #: [id number] ROOM: [facility] DOCTOR: TOMMIE KENNEDY MD BIRTHDATE: [birth year] TOMMIE KENNEDY MD CM:PNTRANS [phone] TOMMIE KENNEDY MD 07/23/172022 interface
--- NOTE | ~2017-07-19 | EKG ---
[place], [place] ELECTROCARDIOGRAM REPORT NAME: MARLY PRATT UNIT #: [id number] ROOM: 406 DOCTOR: BILLY ALONSO MD,HARINDER BIRTHDATE: [birth year] DOS: 07/19/2017 TIME: At 9:49 a.m. Multifocal PVC was noted with a left bundle-branch block. Nonspecific ST-T changes noted. HARINDER CERVANTES MD CM:EKGRPT:ELECTROCARDIOGRAM REPORT [id number] HARINDER ALONSO MD
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
--- NOTE | ~2017-07-19 | PR ---
[place], [place] PROGRESS NOTE NAME: MARLY PRATT [facility] #: [id number] UNIT #: [id number] ROOM: 406 DOCTOR: TOMMIE KENNEDY MD BIRTHDATE: [birth year] DOS: 07/22/2017 SUBJECTIVE: The patient was seen at his bedside today, 07/22/2017, for persistent chest pain. He is an 87-year-old man who I have been following since his hospitalization on July. I actually first saw him in March 2017 when he presented with atypical chest pain and mild elevation in troponin. Symptoms resolved and a stress test at that time showed no evidence for ischemia. He comes into the hospital on this occasion with chest pain and a DVT. He has been heparinized, but has not gotten better and continues to have episodes of chest pain with mild elevations in troponin. Initially, a V/Q scan was done and was equivocal. A CT angiogram of the chest was done on 07/21/2017 and showed no pulmonary embolism. In addition, an echocardiogram was done on July 20, which showed severe aortic stenosis. The patient's valve area was 0.8 cm2 with a mean gradient of 53 mmHg and a dimensionless VTI ratio of 0.26. The patient continues to have episodes of chest pain lasting up to 30 minutes. Troponin levels continue to be mildly elevated without a specific rise and fall pattern. PHYSICAL EXAMINATION: VITAL SIGNS: Today his pulse is 66 and regular, blood pressure is 117/69. He is afebrile. NECK: Supple. He has no jugular distention. Carotids have slow upstroke with transmitted murmurs into the carotids. CHEST: Clear. HEART: Has a regular rhythm with a grade 3/6 late peaking systolic ejection murmur. The second heart sound is markedly decreased, but still present. The PMI is not displaced. There is no precordial heave, lift or thrill. ABDOMEN: Soft and normally active. EXTREMITIES: Showed no edema. ASSESSMENT: I have discussed his case with angiographers, Dr. Dominick Díaz at [facility]. They agree with me that the patient does certainly require cardiac catheterization at this point. At the same time, his aortic valve will need to be assessed for probable valve replacement. I have discussed catheterization and valve replacement with the patient and he would like to proceed. For now, we will treat him with beta blockers, aspirin, statin, etc. and plan on transferring him to [facility] on 07/24/2017 for catheterization and subsequent management. His Society of Angiography and Interventions indication is 3 with a score of 8. I thank the hospitalist physicians for asking our advice regarding his care. [place], [place] PROGRESS NOTE NAME: MARLY PRATT UNIT #: [id number] ROOM: [facility] DOCTOR: TOMMIE KENNEDY MD BIRTHDATE: [birth year] TOMMIE KENNEDY MD CM:PNTRANS [phone] TOMMIE KENNEDY MD 07/22/17 1829 interface
[2017-07-19 09:37] VITALS: BP 146/68
[2017-07-19 10:04] LABS: BASO # 0.1 10*3/uL (0.0-0.1); BASO % 0.9 % (0.0-1.0); EOS # 0.5 10*3/uL (0.0-0.4); HEMATOCRIT 40.6 % (42.0-52.0); HEMOGLOBIN 13.5 g/dl (14.0-18.0); LYMPH # 1.2 10*3/uL (1.3-4.4); LYMPH % 22.4 % (27.0-41.0); MEAN CELL VOLUME 97.1 fl (80.0-94.0); MEAN CORPUSCULAR HGB 32.3 pg (27.0-31.0); MEAN CORPUSCULAR HGB CONC 33.3 g/dl (33.0-37.0); MEAN PLATELET VOLUME 9.1 fl (9.6-12.3); MONO # 0.4 10*3/uL (0.1-1.0); MONO % 7.2 % (3.0-9.0); NEUT # 3.2 10*3/uL (2.3-7.9); NEUT % 59.3 % (47.0-73.0); RED BLOOD COUNT 4.18 10*6/uL (4.50-5.90); RED CELL DISTRI WIDTH 12.2 % (0-14.5); WHITE BLOOD COUNT 5.4 10*3/uL (4.8-10.8)
[2017-07-19 10:09] LABS: PLATELET COUNT AUTOMATED 94 10*3/uL (130-400)
[2017-07-19 10:13] VITALS: BP 126/54
[2017-07-19] MEDS ORDERED: MUCOSA400 MG PO (10:19)
[2017-07-19] MEDS ORDERED: COMBIVENT RESPIM4 GM INH (10:20)
[2017-07-19] MEDS ORDERED: SYMB160 INH (10:20)
[2017-07-19 10:21] LABS: ALBUMIN 3.8 gm/dl (3.1-4.5); ALKALINE PHOSPHATASE 56 U/L (45-117); BUN 11 mg/dl (7-24); CHLORIDE 101 mmol/L (98-107); CREATININE 0.76 mg/dL (0.70-1.30); SGOT/AST 14 IU/L (3-35); SGPT/ALT 24 U/L (12-78); SODIUM 141 mmol/L (136-145); TOTAL PROTEIN 6.4 gm/dL (6.4-8.2); TROPONIN I 0.026 ng/ml (<0.045)
[2017-07-19 11:06] VITALS: BP 131/69
[2017-07-19 11:55] VITALS: BP 124/64
[2017-07-19] MEDS ORDERED: VENTOLIN 02.5 MG/3 M INH (13:02)
[2017-07-19] MEDS ORDERED: KENALOG 0.1%80 GM T (13:10)
[2017-07-19] MEDS ORDERED: AMITRIPTYLINE25 MG PO (13:11)
[2017-07-19] MEDS ORDERED: LIDOCAINE15 GM T (13:15)
[2017-07-19] MEDS ORDERED: ANALGESIC BALM28 GM T (13:16)
[2017-07-19] MEDS ORDERED: VOLTAREN100 GM T (13:18)
[2017-07-19] MEDS ORDERED: REFRESH PLUS1 EACH OP (13:26)
[2017-07-19] MEDS ORDERED: LUBRICATING (13:29)
[2017-07-19 16:00] VITALS: BP 140/85
[2017-07-19 16:42] LABS: BILIRUBIN NEGATIVE (NEGATIVE); BLOOD NEGATIVE (NEGATIVE); CLARITY CLEAR (CLEAR); COLOR YELLOW (YELLOW); GLUCOSE NEGATIVE (NEGATIVE); KETONE NEGATIVE (NEGATIVE); LEUKO ESTERASE NEGATIVE (NEGATIVE); NITRITE NEGATIVE (NEGATIVE); SPECIFIC GRAVITY 1.015 (1.005-1.030)
[2017-07-19 16:49] LABS: BACTERIA TRACE; WBC 0-2 wbc/hpf (0-5)
[2017-07-19 20:00] VITALS: BP 140/81
[2017-07-20] VITALS: BP 143/64
[2017-07-20 08:00] VITALS: BP 148/77
[2017-07-20 08:46] LABS: BASO % 0.1 % (0.0-1.0); HEMATOCRIT 41.6 % (42.0-52.0); HEMOGLOBIN 14.1 g/dl (14.0-18.0); LYMPH # 0.8 10*3/uL (1.3-4.4); LYMPH % 11.8 % (27.0-41.0); MEAN CORPUSCULAR HGB 32.2 pg (27.0-31.0); MEAN CORPUSCULAR HGB CONC 33.9 g/dl (33.0-37.0); MONO # 0.1 10*3/uL (0.1-1.0); MONO % 2.1 % (3.0-9.0); NEUT # 5.8 10*3/uL (2.3-7.9); NEUT % 85.7 % (47.0-73.0); PLATELET COUNT AUTOMATED 117 10*3/uL (130-400); RED BLOOD COUNT 4.38 10*6/uL (4.50-5.90); RED CELL DISTRI WIDTH 12.1 % (0-14.5); WHITE BLOOD COUNT 6.8 10*3/uL (4.8-10.8)
[2017-07-20 08:53] LABS: BUN 13 mg/dl (7-24); CHLORIDE 101 mmol/L (98-107); CREATININE 0.76 mg/dL (0.70-1.30); POTASSIUM 4.2 mmol/L (3.5-5.1); SODIUM 138 mmol/L (136-145)
[2017-07-20 08:59] LABS: THYROID STIM HORMONE (HS) 0.619 uIU/ml (0.358-4.75)
[2017-07-20 10:18] LABS: CPK 52 U/L (39-308)
[2017-07-20 10:19] LABS: CKMB 2.1 ng/ml (0.5-3.6)
[2017-07-20 10:21] LABS: TROPONIN I < 0.015 ng/ml (<0.045)
[2017-07-20 10:31] LABS: VITAMIN D, 25-HYDROXY 30.3 ng/mL (30-100)
[2017-07-20 12:00] VITALS: BP 117/86
[2017-07-20 16:00] VITALS: BP 141/80
[2017-07-20 20:00] VITALS: BP 113/54
[2017-07-21] VITALS: BP 87/40
[2017-07-21 00:39] VITALS: BP 100/48
[2017-07-21 06:34] LABS: ACT PARTIAL THROMBO TIME 27.5 SECONDS (20.8-31.5); INTERNATIONAL NORM RATIO 1.1 (2.0-3.5)
[2017-07-21 08:00] VITALS: BP 127/75
[2017-07-21 08:56] LABS: BASO % 0.1 % (0.0-1.0); HEMOGLOBIN 14.1 g/dl (14.0-18.0); LYMPH # 0.7 10*3/uL (1.3-4.4); LYMPH % 7.5 % (27.0-41.0); MEAN CELL VOLUME 96.1 fl (80.0-94.0); MEAN CORPUSCULAR HGB 32.3 pg (27.0-31.0); MEAN CORPUSCULAR HGB CONC 33.6 g/dl (33.0-37.0); MONO # 0.2 10*3/uL (0.1-1.0); MONO % 2.5 % (3.0-9.0); NEUT # 8.6 10*3/uL (2.3-7.9); NEUT % 89.4 % (47.0-73.0); PLATELET COUNT AUTOMATED 130 10*3/uL (130-400); RED BLOOD COUNT 4.37 10*6/uL (4.50-5.90); RED CELL DISTRI WIDTH 12.4 % (0-14.5); WHITE BLOOD COUNT 9.6 10*3/uL (4.8-10.8)
[2017-07-21 12:00] VITALS: BP 133/76
[2017-07-21 16:00] VITALS: BP 114/72
[2017-07-21 20:00] VITALS: BP 114/58
[2017-07-22] VITALS: BP 140/74
[2017-07-22 06:28] LABS: BASO % 0.1 % (0.0-1.0); HEMATOCRIT 36.2 % (42.0-52.0); HEMOGLOBIN 12.2 g/dl (14.0-18.0); LYMPH # 0.6 10*3/uL (1.3-4.4); LYMPH % 8.4 % (27.0-41.0); MEAN CELL VOLUME 96.5 fl (80.0-94.0); MEAN CORPUSCULAR HGB 32.5 pg (27.0-31.0); MEAN CORPUSCULAR HGB CONC 33.7 g/dl (33.0-37.0); MEAN PLATELET VOLUME 10.2 fl (9.6-12.3); MONO # 0.2 10*3/uL (0.1-1.0); MONO % 3.1 % (3.0-9.0); NEUT # 6.2 10*3/uL (2.3-7.9); NEUT % 87.8 % (47.0-73.0); PLATELET COUNT AUTOMATED 103 10*3/uL (130-400); RED BLOOD COUNT 3.75 10*6/uL (4.50-5.90); RED CELL DISTRI WIDTH 12.6 % (0-14.5); WHITE BLOOD COUNT 7.1 10*3/uL (4.8-10.8)
[2017-07-22 06:38] LABS: ALBUMIN 3.3 gm/dl (3.1-4.5); ALKALINE PHOSPHATASE 47 U/L (45-117); BUN 21 mg/dl (7-24); CHLORIDE 101 mmol/L (98-107); CREATININE 0.88 mg/dL (0.70-1.30); PHOSPHOROUS 2.6 mg/dL (2.5-4.9); POTASSIUM 3.8 mmol/L (3.5-5.1); SGOT/AST 13 IU/L (3-35); SGPT/ALT 20 U/L (12-78); SODIUM 137 mmol/L (136-145); TOTAL PROTEIN 5.7 gm/dL (6.4-8.2)
[2017-07-22 08:00] VITALS: BP 155/70
[2017-07-22 12:00] VITALS: BP 117/69
[2017-07-22 16:00] VITALS: BP 120/60
[2017-07-22 20:00] VITALS: BP 153/72
[2017-07-23] VITALS: BP 118/54
[2017-07-23 07:03] LABS: HEMATOCRIT 36.8 % (42.0-52.0); HEMOGLOBIN 12.3 g/dl (14.0-18.0); LYMPH # 0.6 10*3/uL (1.3-4.4); LYMPH % 11.4 % (27.0-41.0); MEAN CELL VOLUME 96.3 fl (80.0-94.0); MEAN CORPUSCULAR HGB 32.2 pg (27.0-31.0); MEAN CORPUSCULAR HGB CONC 33.4 g/dl (33.0-37.0); MONO # 0.2 10*3/uL (0.1-1.0); MONO % 4.5 % (3.0-9.0); NEUT # 4.3 10*3/uL (2.3-7.9); NEUT % 83.5 % (47.0-73.0); PLATELET COUNT AUTOMATED 104 10*3/uL (130-400); RED BLOOD COUNT 3.82 10*6/uL (4.50-5.90); RED CELL DISTRI WIDTH 12.6 % (0-14.5); WHITE BLOOD COUNT 5.1 10*3/uL (4.8-10.8)
[2017-07-23 08:00] VITALS: BP 128/70
[2017-07-23 12:00] VITALS: BP 124/73
[2017-07-23] MEDS ORDERED: METOPROLOL SUCC25 M2 PO (14:22)
[2017-07-23 16:00] VITALS: BP 116/89
[2017-07-23 20:00] VITALS: BP 128/66
[2017-07-24] VITALS: BP 166/70
== END 2017-07-24 06:24 | disposition other institution (70) | DRG 280 ==
LOC: ED 09:37 → 4E 11:14 → EDHOLD 11:14 → 5E 11:25 → 4E 11:49
PROVIDERS: Emergency Medicine; Family Medicine; Internal Medicine; Internal Medicine Critical Care Medicine; Student in an Organized Health Care Education/Training Program
DX: I21.4 Non-ST elevation (NSTEMI) myocardial infarction (principal); J18.9 Pneumonia, unspecified organism; J96.21 Acute and chronic respiratory failure with hypoxia; D69.6 Thrombocytopenia, unspecified; I11.0 Hypertensive heart disease with heart failure; I50.32 Chronic diastolic (congestive) heart failure; I82.442 Acute embolism and thrombosis of left tibial vein; E83.51 Hypocalcemia; J44.0 Chronic obstructive pulmonary disease with (acute) lower respiratory infection; J44.1 Chronic obstructive pulmonary disease with (acute) exacerbation; I82.812 Embolism and thrombosis of superficial veins of left lower extremity; D53.9 Nutritional anemia, unspecified; I35.0 Nonrheumatic aortic (valve) stenosis; R00.0 Tachycardia, unspecified; R73.9 Hyperglycemia, unspecified; R73.03 Prediabetes; E66.09 Other obesity due to excess calories; Z68.31 Body mass index [BMI] 31.0-31.9, adult; F32.9 Major depressive disorder, single episode, unspecified; F41.9 Anxiety disorder, unspecified; K21.0 Gastro-esophageal reflux disease with esophagitis; F43.10 Post-traumatic stress disorder, unspecified; E55.9 Vitamin D deficiency, unspecified; G89.29 Other chronic pain; M54.9 Dorsalgia, unspecified; I25.10 Atherosclerotic heart disease of native coronary artery without angina pectoris; E78.00 Pure hypercholesterolemia, unspecified; E78.5 Hyperlipidemia, unspecified; Z96.642 Presence of left artificial hip joint; Z96.652 Presence of left artificial knee joint; J20.9 Acute bronchitis, unspecified; Z53.29 Procedure and treatment not carried out because of patient's decision for other reasons; M48.00 Spinal stenosis, site unspecified; G47.33 Obstructive sleep apnea (adult) (pediatric); G25.81 Restless legs syndrome; Z99.81 Dependence on supplemental oxygen; Z91.19 Patient's noncompliance with other medical treatment and regimen; Z88.8 Allergy status to other drugs, medicaments and biological substances; Z91.041 Radiographic dye allergy status; Z88.2 Allergy status to sulfonamides; Z79.899 Other long term (current) drug therapy; Z90.49 Acquired absence of other specified parts of digestive tract; Z82.49 Family history of ischemic heart disease and other diseases of the circulatory system; Z81.2 Family history of tobacco abuse and dependence; Z83.79 Family history of other diseases of the digestive system; I25.2 Old myocardial infarction; Z85.21 Personal history of malignant neoplasm of larynx

== ENCOUNTER 2018-02-17 05:44 | Inpatient (IN) | payer OTHER, MEDICARE ==
[~2018-02-17] VITALS: Ht 188 cm; Wt 101.2 kg
--- NOTE | ~2018-02-17 | CON ---
[place], [place] REPORT OF CONSULTATION NAME: [facility]ATT [facility] [id number] UNIT #: [id number] ROOM: 421 DOCTOR: JOYCE LOWERY,RAYMOND BIRTHDATE: [birth year] DOS: 02/17/2018 CARDIOLOGY CONSULT REASON FOR CONSULTATION: Chest pain and short of breath. CLINICAL HISTORY: The patient is an 87-year-old gentleman with history of valvular heart disease, recent TAVR, COPD, sleep apnea, was brought to the Emergency Room for chest pain and shortness of breath. Apparently, he had shortness of breath a couple of days ago and EMS was called in and by the time they arrived, he felt better and so they did not take him to the Emergency Room but again he woke up from shortness of breath from sleep and noted as a midsternal pain, which radiated towards his back and this is sharp pain and he was brought to the Emergency Room by EMS and admitted to the hospital. The Cardiology was consulted for any further recommendations. At the time of examination, he denies any further chest pain, again the chest pain came at rest, but he denies exertional chest pains at home. He does not use CPAP for sleep apnea. Apparently, he had a cardiac catheterization a few months ago at ____, reports not available. However, he did not have any stents done at that time, but he underwent a TAVR for his severe aortic stenosis. He denies any PND or orthopnea. No fever and chills, no cough, no hemoptysis. REVIEW OF SYSTEMS: Review of the 10 systems negative except as mentioned above. PAST MEDICAL HISTORY: 1. Valvular heart disease, status post TAVR, on 10/04/2017. 2. Possible coronary artery disease, cardiac catheterization done few months ago. Reports not available. 3. Obstructive sleep apnea and COPD, noncompliant with his CPAP. 4. Chronic diastolic heart failure. 5. Chronic respiratory failure. 6. Home oxygen, 3-4 liters daily. 7. Acid reflux. 8. Hiatal hernia. 9. History of abdominal aortic aneurysm, which was repaired. 10 Overweight. 11. PTSD. 12. Anxiety. PAST SURGICAL HISTORY: 1. TAVR in 10/2017. 2. Abdominal aortic aneurysm repair. 3. History of cholecystectomy, left hip replacement, throat surgery and appendicectomy. SOCIAL HISTORY: The patient does not smoke or does not use illicit drugs. Does not drink. FAMILY HISTORY: Nil contributory to his age. Father 64 from myocardial infarction. Mother from natural causes. [place], [place] REPORT OF CONSULTATION NAME: MARLY PRATT UNIT #: [id number] ROOM: 421 DOCTOR: RAYMOND COOK MD BIRTHDATE: [birth year] ALLERGIES: Reviewed. HOME MEDICATIONS: Reviewed. PHYSICAL EXAMINATION: VITAL SIGNS: Blood pressure 142/82, pulse 84, respiratory rate 20. Weight 101 kilos, BMI 28.6. GENERAL: Alert, comfortable, in no acute distress. HEAD AND NECK: Pupils are round and equal, no jaundice. Tongue was moist and pharynx clear. NECK: Supple, no distended neck veins, no carotid bruit. CHEST: Symmetrical, nontender. LUNGS: Few scattered rhonchi, but fair air entry bilaterally. HEART: Mostly regular. No S3. No palpable thrills. ABDOMEN: Benign, nontender. Bowel sounds normal. EXTREMITIES: Showed no edema. Distal pulses are palpable. SKIN: Warm and dry. No cyanosis, no clubbing. RECTAL: Deferred. GENITOURINARY: Deferred. NEUROLOGIC: Alert, oriented. No focal neurologic deficit. REVIEW OF THE DIAGNOSTIC TESTS: EKG shows sinus rhythm with supraventricular ectopy and old anterior infarction. CBC, chemistry, labs reviewed. Echo from 07/2017 reviewed. White cell count is 7000, hemoglobin 14.1, platelets are 90,000. Chemistry unremarkable. Magnesium 2.2. Troponins are negative. IMPRESSION: 1. Chest pain, atypical, myocardial infarction ruled out. 2. Dyspnea, due to pulmonary condition and also possible chronic diastolic heart failure. 3. Valvular heart disease, status post TAVR, 10/2017. 4. Thrombocytopenia. 5. Chronic obstructive pulmonary disease and obstructive sleep apnea. 6. Chronic respiratory failure with home oxygen. 7. Hypertension. 8. Positive mild coronary artery disease with no history of stents. RECOMMENDATIONS: 1. Continue his home medications including aspirin, beta blockers, TRAE inhibitors and statins. 2. The patient can be discharged home from the cardiac standpoint. 3. There is no further cardiac testing recommended at this time. There is no family at bedside at the time of examination. [place], [place] REPORT OF CONSULTATION NAME: MARLY PRATT UNIT #: [id number] ROOM: 421 DOCTOR: RAYMOND COOK MD BIRTHDATE: [birth year] RAYMOND COOK MD CM:CONSTR:REPORT OF CONSULTATION 21 02/18/[address] [facility] interface
--- NOTE | ~2018-02-17 | EKG ---
[place], [place] ELECTROCARDIOGRAM REPORT NAME: MARLY PRATT UNIT #: [id number] ROOM: 421 DOCTOR: HARISHANY DRAFT REPORT BIRTHDATE: [birth year] [facility] Test Date: 2018-02-17 Test Time: 06:04:12 Pat Name: MARLY PRATT Department: Room: 421 Gender: M Subcontracts Manager: : 1930 Requested By: KEYONNA RIGGS Order Number: [id number] Reading MD: Ruben Contreras MD Measurements Intervals [place] Rate: 89 P: -25 WI: 172 QRS: -65 QRSD: 117 T: 89 QT: 414 QTc: 504 Interpretive Statements Sinus rhythm Atrial premature complexes in couplets Nonspecific IVCD with LAD Inferior infarct, old Anterior infarct, old Baseline wander in lead(s) V5 Compared to ECG 11/12/2017 22:37:02 Atrial premature complex(es) now present Sinus arrhythmia no longer present Myocardial infarct finding still present No significant change Electronically Signed On 02-19-2018 6:13:10 PST by Ruben Contreras MD CM:EKGRPT:ELECTROCARDIOGRAM REPORT KEYONNA RIGGS MD EPIPHANY DRAFT REPORT KEYONNA RIGGS MD
[~2018-02-17 05:44] MED LIST changes: +AMITRIPTYLINE25 MG PO; +ANALGESIC BALM28 GM T; +COMBIVENT RESPIM4 GM INH; +DOXYCYCLINE100 MG PO; +ELIQUIS5 M1 PO; +LIDOCAINE15 GM T; +LIPITOR20 MG PO; +LISINOPRIL10 M1 PO; +LUBRICATING; +METOPROLOL SUCC25 M2 PO; +MUCOSA400 MG PO; +REFRESH PLUS1 EACH OP; +SYMB160 INH; +VENTOLIN 02.5 MG/3 M INH; +VOLTAREN100 GM T
[2018-02-17 05:45] VITALS: BP 115/85
[2018-02-17 06:14] LABS: BASO # 0.1 10*3/uL (0.0-0.1); BASO % 1.1 % (0.0-1.0); EOS # 0.6 10*3/uL (0.0-0.4); EOS % 7.8 % (1.0-4.0); HEMATOCRIT 42.8 % (42.0-52.0); HEMOGLOBIN 14.1 g/dl (14.0-18.0); LYMPH # 0.9 10*3/uL (1.3-4.4); LYMPH % 12.7 % (27.0-41.0); MEAN CELL VOLUME 95.5 fl (80.0-94.0); MEAN CORPUSCULAR HGB 31.5 pg (27.0-31.0); MEAN CORPUSCULAR HGB CONC 32.9 g/dl (33.0-37.0); MEAN PLATELET VOLUME 9.5 fl (9.6-12.3); MONO # 0.5 10*3/uL (0.1-1.0); MONO % 7.3 % (3.0-9.0); NEUT % 70.8 % (47.0-73.0); PLATELET COUNT AUTOMATED 90 10*3/uL (130-400); RED BLOOD COUNT 4.48 10*6/uL (4.50-5.90); RED CELL DISTRI WIDTH 12.8 % (0-14.5)
[2018-02-17 06:27] LABS: ACT PARTIAL THROMBO TIME 27.2 SECONDS (20.8-31.5)
[2018-02-17 06:31] LABS: ALBUMIN 3.6 gm/dl (3.1-4.5); ALKALINE PHOSPHATASE 76 U/L (45-117); BUN 12 mg/dl (7-24); CHLORIDE 103 mmol/L (98-107); LIPASE 61 U/L (73-393); POTASSIUM 4.1 mmol/L (3.5-5.1); SGOT/AST 19 IU/L (3-35); SGPT/ALT 23 U/L (12-78); SODIUM 139 mmol/L (136-145); TOTAL PROTEIN 6.8 gm/dL (6.4-8.2); TROPONIN I 0.038 ng/ml (<0.045)
[2018-02-17 07:09] VITALS: BP 124/56
[2018-02-17 08:00] VITALS: BP 147/87
[2018-02-17 11:01] LABS: BILIRUBIN NEGATIVE (NEGATIVE); BLOOD NEGATIVE (NEGATIVE); CLARITY SL CLOUDY (CLEAR); COLOR YELLOW (YELLOW); GLUCOSE NEGATIVE (NEGATIVE); KETONE NEGATIVE (NEGATIVE); LEUKO ESTERASE NEGATIVE (NEGATIVE); NITRITE NEGATIVE (NEGATIVE); SPECIFIC GRAVITY 1.025 (1.005-1.030); UROBILINOGEN 0.2 E.U./dl (0.2-1.0)
[2018-02-17 11:14] LABS: BACTERIA 1+; EPITHELIAL CELLS 0-2; MUCOUS 2+
[2018-02-17 12:00] VITALS: BP 131/65
[2018-02-17 16:00] VITALS: BP 107/67
[2018-02-17 20:00] VITALS: BP 154/85
[2018-02-18] VITALS: BP 149/81
[2018-02-18 05:54] LABS: BASO % 0.3 % (0.0-1.0); HEMATOCRIT 40.4 % (42.0-52.0); HEMOGLOBIN 13.6 g/dl (14.0-18.0); LYMPH # 0.8 10*3/uL (1.3-4.4); MEAN CELL VOLUME 93.5 fl (80.0-94.0); MEAN CORPUSCULAR HGB 31.5 pg (27.0-31.0); MEAN CORPUSCULAR HGB CONC 33.7 g/dl (33.0-37.0); MEAN PLATELET VOLUME 10.7 fl (9.6-12.3); MONO # 0.1 10*3/uL (0.1-1.0); MONO % 1.7 % (3.0-9.0); NEUT # 4.8 10*3/uL (2.3-7.9); NEUT % 83.7 % (47.0-73.0); PLATELET COUNT AUTOMATED 93 10*3/uL (130-400); RED BLOOD COUNT 4.32 10*6/uL (4.50-5.90); RED CELL DISTRI WIDTH 12.4 % (0-14.5); WHITE BLOOD COUNT 5.7 10*3/uL (4.8-10.8)
[2018-02-18 06:20] LABS: BUN 14 mg/dl (7-24); CHLORIDE 100 mmol/L (98-107); CHOLESTEROL 201 mg/dL (<200); CREATININE 0.86 mg/dL (0.70-1.30); FREE T4 0.77 ng/dl (0.76-1.46); HDL CHOLESTEROL 46 mg/dl (40-60); LDL CHOLESTEROL 140 mg/dL (9-159); PHOSPHOROUS 2.3 mg/dL (2.5-4.9); POTASSIUM 4.3 mmol/L (3.5-5.1); SODIUM 135 mmol/L (136-145); TRIGLYCERIDES 74 mg/dl (<150); VLDL CHOLESTEROL 15 mg/dL (6-40)
[2018-02-18 06:26] LABS: THYROID STIM HORMONE (HS) 0.515 uIU/ml (0.358-4.75)
[2018-02-18 08:00] VITALS: BP 158/72
[2018-02-18] MEDS ORDERED: PREDNISONE10 MG PO (10:18)
[2018-02-18] MEDS ORDERED: DOXYCYCLINE100 M3 PO (10:18)
== END 2018-02-18 12:07 | disposition home or self-care (01) | DRG 191 ==
LOC: ED 05:44 → EDHOLD 07:01 → 4E 07:31
PROVIDERS: Emergency Medicine Emergency Medical Services; Student in an Organized Health Care Education/Training Program
DX: J44.1 Chronic obstructive pulmonary disease with (acute) exacerbation (principal); I50.32 Chronic diastolic (congestive) heart failure; J96.11 Chronic respiratory failure with hypoxia; M94.0 Chondrocostal junction syndrome [Tietze]; F41.9 Anxiety disorder, unspecified; E83.41 Hypermagnesemia; F32.9 Major depressive disorder, single episode, unspecified; K21.9 Gastro-esophageal reflux disease without esophagitis; F43.10 Post-traumatic stress disorder, unspecified; I11.0 Hypertensive heart disease with heart failure; I25.118 Atherosclerotic heart disease of native coronary artery with other forms of angina pectoris; G89.29 Other chronic pain; M54.9 Dorsalgia, unspecified; E66.9 Obesity, unspecified; G47.33 Obstructive sleep apnea (adult) (pediatric); I35.0 Nonrheumatic aortic (valve) stenosis; D69.6 Thrombocytopenia, unspecified; Z96.642 Presence of left artificial hip joint; Z96.651 Presence of right artificial knee joint; Z68.28 Body mass index [BMI] 28.0-28.9, adult; Z88.8 Allergy status to other drugs, medicaments and biological substances; Z91.041 Radiographic dye allergy status; Z86.718 Personal history of other venous thrombosis and embolism; Z80.8 Family history of malignant neoplasm of other organs or systems; I25.2 Old myocardial infarction; Z99.81 Dependence on supplemental oxygen; Z90.49 Acquired absence of other specified parts of digestive tract; Z87.891 Personal history of nicotine dependence; Z82.49 Family history of ischemic heart disease and other diseases of the circulatory system; Z80.9 Family history of malignant neoplasm, unspecified; Z79.899 Other long term (current) drug therapy; Z95.2 Presence of prosthetic heart valve

== ENCOUNTER 2018-06-27 04:39 | Inpatient (IN) | payer MEDICARE ==
[~2018-06-27] VITALS: Ht 188 cm; Wt 105.3 kg
[2018-06-27] VITALS (11 sets, daily range): BP systolic 123–161; BP diastolic 72–99
--- NOTE | ~2018-06-27 | EKG ---
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: Lakia Osorio : 1930 Requested By: ARNULFO CASTILLO Order Number: [id number] Reading MD: Gokul Lenz MD Measurements Intervals [place] Rate: 112 P: RI: QRS: -58 QRSD: 118 T: 103 QT: 352 QTc: 481 Interpretive Statements Atrial fibrillation Nonspecific IVCD with LAD Probable inferior infarct, recent Lateral leads are also involved Baseline wander in lead(s) V3,V4,V5,V6 Compared to ECG 06/27/2018 12:59:56 Intraventricular conduction delay now present Myocardial infarct finding still present Electronically Signed On 06-29-2018 7:12:38 PDT by Gokul Lenz MD CM:EKGRPT:ELECTROCARDIOGRAM REPORT [id number] ARNULFO KING DRAFT REPORT ARNULFO CASTILLO DO
--- NOTE | ~2018-06-27 | PR ---
[place], [place] PROGRESS NOTE NAME: MARLY PRATT UNIT #: [id number] ROOM: 525 DOCTOR: JOYCE LOWERY,RAYMOND BIRTHDATE: [birth year] DOS: 07/01/2018 CARDIOLOGY FOLLOWUP NOTE REASON FOR VISIT: Atrial fibrillation. SUBJECTIVE: The patient is feeling better. Denies any chest pain, shortness of breath. No palpitation, no dizziness, no PND, no orthopnea. No nausea, vomiting. No bladder or bowel symptoms, no neurologic symptoms. REVIEW OF SYSTEMS: Review of 10 systems negative except as mentioned above. RHYTHM STRIPS: The patient was in atrial fibrillation with rate control. PHYSICAL EXAMINATION: VITAL SIGNS: Blood pressure 158/85, pulse 67, respiratory rate 18, weight 105.2 kilos. GENERAL: Alert, comfortable, in no acute distress. HEENT: Pupils round, equal. No jaundice. Tongue was moist and pharynx clear. NECK: Supple, no distended neck veins, no carotid bruit. CHEST: Symmetrical, nontender. LUNGS: Clear to auscultation bilaterally. HEART: Irregularly irregular, grade 1/6 systolic murmur. ABDOMEN: Benign, nontender. Bowel sounds normal. EXTREMITIES: Showed no edema. Distal pulses palpable. SKIN: Warm and dry. No cyanosis, no clubbing. RECTAL: Deferred. GENITOURINARY: Deferred. NEUROLOGIC: The patient is alert and awake with good mood and affect. Medications and labs reviewed. IMPRESSION: 1. New onset atrial fibrillation, currently rate controlled. 2. Valvular heart disease, status post TAVR in 10/2017. 3. Peripheral vascular disease status post abdominal aortic aneurysm repair in 1999. 4. Hypertension. 5. Non-morbid obesity. 6. Pneumonia. 7. Esophageal varices. 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 RECOMMENDATIONS: His heart rates are stable on beta blockers and digoxin. Wean or discontinue IV Cardizem. Once he is cleared by the GI, Dr. Swanson, he needs oral anticoagulation and at that time, we will discontinue his Lovenox. No family at bedside at the time of my examination. [place], [place] PROGRESS NOTE NAME: MARLY PRATT UNIT #: [id number] ROOM: [facility] DOCTOR: RAYMOND COOK MD BIRTHDATE: [birth year] RAYMOND COOK MD CM:PHILIP [id number] RAYMOND COOK MD 07/16/18 0843 interface
--- NOTE | ~2018-06-27 | EKG ---
[place], [place] ELECTROCARDIOGRAM REPORT NAME: MARLY PRATT UNIT #: [id number] ROOM: 525 DOCTOR: ALICE DRAFT REPORT BIRTHDATE: [birth year] [facility] Test Date: 2018-07-03 Test Time: 13:52:36 Pat Name: MARLY PRATT Department: Room: [facility] Gender: M Services Advisor: : 1930 Requested By: ANGI PIÑA Order Number: [id number] Reading MD: Kyle Bear MD Measurements Intervals [place] Rate: 98 P: RI: QRS: -56 QRSD: 123 T: 112 QT: 368 QTc: 470 Interpretive Statements Atrial fibrillation Left bundle branch block Baseline wander in lead(s) II,III,aVR,aVL,aVF Compared to ECG 06/29/2018 02:59:46 Left bundle-branch block now present Intraventricular conduction delay no longer present Myocardial infarct finding no longer present Electronically Signed On 07-05-2018 8:11:32 PDT by Kyle Bear MD CM:EKGRPT:ELECTROCARDIOGRAM REPORT [id number] ANGI KING DRAFT REPORT ANGI PIÑA DO
--- NOTE | ~2018-06-27 | EKG ---
[place], [place] ELECTROCARDIOGRAM REPORT NAME: MARLY PRATT UNIT #: [id number] ROOM: 520 DOCTOR: ALICE DRAFT REPORT BIRTHDATE: [birth year] [facility] Test Date: 2018-06-27 Test Time: 19:44:23 Pat Name: MARLY PRATT Department: Room: 520 1 Gender: M Yarn Washer: Maldonado Jacobs : 1930 Requested By: JOSE TEAGUE Order Number: [id number] Reading MD: Gokul Lenz MD Measurements Intervals [place] Rate: 119 P: MD: QRS: -59 QRSD: 128 T: 101 QT: 370 QTc: 521 Interpretive Statements Atrial fibrillation Nonspecific IVCD with LAD Nonspecific T abnormalities, lateral leads inferior and anterior TX age undetermined. Compared to ECG 06/27/2018 12:59:56 Intraventricular conduction delay now present T-wave abnormality now present ST (T wave) deviation now present Myocardial infarct finding still present Electronically Signed On 06-29-2018 6:36:46 PDT by Gokul Lenz MD CM:EKGRPT:ELECTROCARDIOGRAM REPORT [id number] JOSE KING DRAFT REPORT JOSE TEAGUE DO
--- NOTE | ~2018-06-27 | CON ---
[place], [place] REPORT OF CONSULTATION NAME: MARLY PRATT UNIT #: [id number] ROOM: 520 DOCTOR: JOSE LOWERYKEKE BIRTHDATE: [birth year] DOS: GASTROENDOSCOPIC CONSULTATION: HISTORY OF PRESENT ILLNESS: This gentleman is an 88-year-old who presented with multiple medical problems, among, which has been atrial fibrillation, esophageal varicosity and need of anticoagulation. PAST MEDICAL HISTORY: Associated with new onset atrial fibrillation, has been a point of concern. I have been asked for clearance for Coumadin therapy at the present time, he is on Lovenox management. PAST MEDICAL HISTORY: Associated with hypertension, cirrhotic liver, obesity, sepsis, pneumonic infiltrate, tachycardia, COPD, congestive heart failure, thrombocytopenia, aortic valvular repair history, DVT, esophageal moniliasis, history of vocal cord carcinoma. PAST SURGICAL HISTORY: Valvular repair, associated with left hip prosthesis, cholecystectomy, appendectomy, abdominal aorta repair, right knee prosthesis. SOCIAL HISTORY: Nonsmoker, nonalcohol consumer at the present time; however, in past up to 10 beers per day. FAMILY HISTORY: Noncontributory. ALLERGIES: FELODIPINE, SILVADENE, VENLAFAXINE, IODINE CONTRAST, SIMVASTATIN. MEDICATIONS: List has been reviewed. REVIEW OF SYSTEMS: HEENT: Denies double vision, blurred vision. RESPIRATORY: Admits to shortness of breath. CARDIOVASCULAR: Denies chest pain. DIGESTIVE SYSTEM: No hematemesis, no hematochezia, history of cirrhosis, portal hypertension, esophageal varicosity. PHYSICAL EXAMINATION: GENERAL: Obese patient with shortness of breath. HEENT: Head normocephalic, nontraumatic. Mouth and buccal mucosa benign. NECK: Supple, no thyromegaly, no cervical lymphadenopathy. CHEST: Symmetric anatomy, decreased air entry in general. HEART: Atrial fibrillation, moderate ventricular response. ABDOMEN: Obese, large, soft. No hepato-organomegaly. Bowel sounds present. No pulsatile mass. EXTREMITIES: 2+ pedal edema. NEUROLOGIC: Alert and slow orientation. LABORATORY DATA: Reviewed. Records reviewed. GFR greater than 60 was noticed. INR of 1.1. H and H of 13 and 40, white blood cells 6.9, platelet count thrombocytopenic as expected. [place], [place] REPORT OF CONSULTATION NAME: MARLY PRATT UNIT #: [id number] ROOM: 520 DOCTOR: JOSE LOWERY,KEKE BIRTHDATE: [birth year] PLAN AND DISCUSSION: The patient with new onset atrial fibrillation in need of anticoagulation with Lovenox chronically cannot be used; therefore, we are going to go with low dose Coumadin and once he can be dilating with INR followup then we can withdraw the Lovenox away from. Case has been discussed with the team that is taking care of him. Workup in progress. Discussed with RN. Other adjunctive diagnosis as outlined in paragraph of past medical, surgical history. KEKE GARCIA MD CM:CONSTR:REPORT OF CONSULTATION 2102 07/03/18 0438 interface
--- NOTE | ~2018-06-27 | EKG ---
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
--- NOTE | ~2018-06-27 | EKG ---
[place], [place] ELECTROCARDIOGRAM REPORT NAME: MARLY PRATT UNIT #: [id number] ROOM: 520 DOCTOR: ALICE DRAFT REPORT BIRTHDATE: [birth year] [facility] Test Date: 2018-06-27 Test Time: 04:42:18 Pat Name: MARLY PRATT Department: Room: 520 Gender: M Rail Setter: Lakia Osorio : 1930 Requested By: MANDY AMARAL Order Number: [id number] Reading MD: Gokul Lenz MD Measurements Intervals [place] Rate: 124 P: ID: QRS: -57 QRSD: 122 T: 101 QT: 326 QTc: 469 Interpretive Statements Atrial fibrillation Incomplete Left bundle branch block Compared to ECG 02/17/2018 06:04:12 Left bundle-branch block now present Sinus rhythm no longer present Atrial premature complex(es) no longer present Intraventricular conduction delay no longer present Myocardial infarct finding no longer present Electronically Signed On 06-27-2018 16:07:39 PDT by Gokul Lenz MD CM:EKGRPT:ELECTROCARDIOGRAM REPORT [id number] MANDY KING DRAFT REPORT MANDY AMARAL DO
--- NOTE | ~2018-06-27 | PR ---
[place], [place] PROGRESS NOTE NAME: MARLY PRATT [facility] #: [id number] UNIT #: [id number] ROOM: 520 DOCTOR: JOYCE LOWERY,RAYMOND BIRTHDATE: [birth year] DOS: 06/30/2018 CARDIOLOGY FOLLOWUP NOTE REASON FOR VISIT: New-onset atrial fibrillation with a rapid ventricular rate. HISTORY OF PRESENT ILLNESS: The patient is feeling better. Denies any chest pain. Still mild short of breath. No PND, no orthopnea, no palpitation, no dizziness. No nausea, vomiting, or diarrhea. No bladder or bowel symptoms. REVIEW OF SYSTEMS: Review of 10 systems negative except as mentioned above. RHYTHM STRIPS: The patient in atrial fibrillation, rates 92-110. PHYSICAL EXAMINATION: VITAL SIGNS: Blood pressure 154/92, pulse 83, respiration rate is 18, weight 105.2 kilos, BMI 30. GENERAL: Alert, comfortable, in no acute distress. HEAD AND NECK: Neck supple, no distended neck veins, no carotid bruit. Pupils are round, equal. No jaundice. Tongue was moist and pharynx clear. CHEST: Symmetrical, nontender. LUNGS: A few scattered rhonchi, but fair air entry bilaterally. HEART: Irregular. No S3, no palpable thrills. ABDOMEN: Benign, nontender. Bowel sounds normal. EXTREMITIES: Showed 1+ edema. Distal pulses palpable. SKIN: Warm and dry. No cyanosis, no clubbing. RECTAL: Deferred. GENITOURINARY: Deferred. NEUROLOGIC: The patient is alert, oriented. No focal neurologic deficit. Medications and labs reviewed. IMPRESSION: 1. New-onset atrial fibrillation with rapid ventricular rate. 2. Aortic valve disease, status post TAVR in 10/2017. 3. Coronary artery disease. 4. Hypertension. 5. Peripheral vascular disease, status post abdominal aortic aneurysm surgery in 1999. 6. Obstructive sleep apnea. 7. Non-morbid obesity. 8. Esophageal varices. 9. Pneumonia with sepsis. RECOMMENDATIONS: 1. Increase beta chrissy dose and increase digoxin for rate control. 2. Once he was cleared by GI, Dr. Barrett, he needs Coumadin anticoagulation for his atrial fibrillation. If he is not a candidate for oral anticoagulation then continue low-dose aspirin. 3. Wean off IV Cardizem as his blood pressure and heart rate tolerates. [place], [place] PROGRESS NOTE NAME: MARLY PRATT UNIT #: [id number] ROOM: [facility] DOCTOR: JOYCE LOWERY,RAYMOND BIRTHDATE: [birth year] 4. No family at bedside at the time of examination. RAYMOND COOK MD CM:PNTRANS [id number] RAYMOND COOK MD 07/01/18 0300 interface
--- NOTE | ~2018-06-27 | EKG ---
[place], [place] ELECTROCARDIOGRAM REPORT NAME: MARLY PRATT UNIT #: [id number] ROOM: 520 DOCTOR: ALICE DRAFT REPORT BIRTHDATE: [birth year] [facility] Test Date: 2018-06-27 Test Time: 22:49:32 Pat Name: MARLY PRATT Department: Room: 520 1 Gender: M Stoker Installer: Maldonado Jacobs : 1930 Requested By: JOSE TEAGUE Order Number: [id number] Reading MD: Gokul Lenz MD Measurements Intervals [place] Rate: 118 P: [place]: QRS: -57 QRSD: 119 T: 111 QT: 357 QTc: 501 Interpretive Statements Atrial fibrillation Incomplete left bundle branch block Inferior infarct and anterior TN, old Compared to ECG 06/27/2018 12:59:56 Left bundle-branch block now present Myocardial infarct finding still present Electronically Signed On 06-29-2018 6:37:45 PDT by Gokul Lenz MD CM:EKGRPT:ELECTROCARDIOGRAM REPORT [id number] JOSE KING DRAFT REPORT JOSE TEAGUE DO
--- NOTE | ~2018-06-27 | EKG ---
[place], [place] ELECTROCARDIOGRAM REPORT NAME: MARLY PRATT UNIT #: [id number] ROOM: 520 DOCTOR: ALICE DRAFT REPORT BIRTHDATE: [birth year] [facility] Test Date: 2018-06-27 Test Time: 16:40:10 Pat Name: MARLY PRATT Department: Room: 520 1 Gender: M Rehab Therapy Manager: Maldonado Jacobs : 1930 Requested By: JOSE TEAGUE Order Number: [id number] Reading MD: Gokul Lenz MD Measurements Intervals [place] Rate: 114 P: [place]: QRS: -57 QRSD: 118 T: 101 QT: 365 QTc: 503 Interpretive Statements Atrial fibrillation Ventricular premature complex Nonspecific IVCD with LAD Inferior infarct, old Anterior infarct, old Lateral leads are also involved Compared to ECG 02/17/2018 06:04:12 Ventricular premature complex(es) now present Sinus rhythm no longer present Atrial premature complex(es) no longer present Myocardial infarct finding still present Electronically Signed On 06-29-2018 6:28:48 PDT by Gokul Lenz MD CM:EKGRPT:ELECTROCARDIOGRAM REPORT [id number] JOSE KING DRAFT REPORT JOSE TEAGUE DO
--- NOTE | ~2018-06-27 | EKG ---
[place], [place] ELECTROCARDIOGRAM REPORT NAME: MARLY PRATT UNIT #: [id number] ROOM: 520 DOCTOR: ALICE DRAFT REPORT BIRTHDATE: [address] 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: Jennifer Hoffmann : 1930 Requested By: MANDY AMARAL Order Number: [id number] Reading MD: Gokul Lenz MD Measurements Intervals [place] Rate: 117 P: [place]: QRS: -56 QRSD: 121 T: 99 QT: 357 QTc: 498 Interpretive Statements Atrial fibrillation Left bundle branch block Baseline wander in lead(s) V2 Compared to ECG 02/17/2018 06:04:12 Left bundle-branch block now present Sinus rhythm no longer present Atrial premature complex(es) no longer present Intraventricular conduction delay no longer present Myocardial infarct finding no longer present Electronically Signed On 06-27-2018 16:08:08 PDT by Gokul Lenz MD CM:EKGRPT:ELECTROCARDIOGRAM REPORT [id number] MANDY KING DRAFT REPORT MANDY AMARAL DO
--- NOTE | ~2018-06-27 | EKG ---
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: : 1930 Requested By: ARNULFO CASTILLO Order Number: [id number] Reading MD: Gokul Lenz MD Measurements Intervals [place] Rate: 110 P: [place]: QRS: -55 QRSD: 120 T: 109 QT: 372 QTc: 504 Interpretive Statements Atrial fibrillation Ventricular premature complex Incomplete left bundle branch block Inferior infarct and anterior [place], old Compared to ECG 06/27/2018 12:59:56 Ventricular premature complex(es) now present Left bundle-branch block now present Myocardial infarct finding still present Electronically Signed On 06-29-2018 6:38:54 PDT by Gokul Lenz MD CM:EKGRPT:ELECTROCARDIOGRAM REPORT [id number] [id number] ARNULFO KING DRAFT REPORT ARNULFO CASTILLO DO
[~2018-06-27 04:39] MED LIST changes: +DOXYCYCLINE100 M3 PO
--- NOTE | 2018-06-27 04:54 | NUR ---
FREQUENT MOIST PRODUCTIVE COUGH
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
[2018-06-27 05:12] LABS: BASO # 0.1 10*3/uL (0.0-0.1); EOS # 0.3 10*3/uL (0.0-0.4); EOS % 4.2 % (1.0-4.0); HEMATOCRIT 40.7 % (42.0-52.0); HEMOGLOBIN 13.7 g/dl (14.0-18.0); LYMPH # 1.1 10*3/uL (1.3-4.4); LYMPH % 16.3 % (27.0-41.0); MEAN CELL VOLUME 97.1 fl (80.0-94.0); MEAN CORPUSCULAR HGB 32.7 pg (27.0-31.0); MEAN CORPUSCULAR HGB CONC 33.7 g/dl (33.0-37.0); MEAN PLATELET VOLUME 9.1 fl (9.6-12.3); MONO # 0.6 10*3/uL (0.1-1.0); MONO % 8.1 % (3.0-9.0); NEUT # 4.8 10*3/uL (2.3-7.9); NEUT % 70.1 % (47.0-73.0); PLATELET COUNT AUTOMATED 95 10*3/uL (130-400); RED BLOOD COUNT 4.19 10*6/uL (4.50-5.90); RED CELL DISTRI WIDTH 12.4 % (0-14.5); WHITE BLOOD COUNT 6.9 10*3/uL (4.8-10.8)
[2018-06-27 05:26] LABS: ACT PARTIAL THROMBO TIME 26.4 SECONDS (20.8-31.5); INTERNATIONAL NORM RATIO 1.1 (2.0-3.5)
[2018-06-27 05:28] LABS: ALBUMIN 3.7 gm/dl (3.1-4.5); ALKALINE PHOSPHATASE 64 U/L (45-117); BUN 12 mg/dl (7-24); CHLORIDE 105 mmol/L (98-107); CREATININE 0.84 mg/dL (0.70-1.30); SGOT/AST 13 IU/L (3-35); SGPT/ALT 18 U/L (12-78); SODIUM 141 mmol/L (136-145); TOTAL PROTEIN 6.9 gm/dL (6.4-8.2)
[2018-06-27 05:29] LABS: TROPONIN I 0.035 ng/ml (<0.045)
[2018-06-27 07:16] LABS: ABG HCO3 28.6 mmol/l (22-26); ABG O2 SATURATION 97.8 % (95-97); ARTERIAL BLOOD GAS PCO2 48.6 mmHg (35-45); ARTERIAL BLOOD GAS PH 7.385 (7.35-7.45)
--- NOTE | 2018-06-27 08:05 | NUR ---
A 88YO MALE, admitted to , under the services of ROSANA Lund DO with a diagnosis of SHORTNESS OF BREATH/PNEUMONIA. Chief complaint is CHEST HEAVINESS, SHORNTESS OF BREATH SINCE MIDNIGHT. Patient arrived via stretcher from ER. Monitor applied. Initial assessment completed. Vital signs taken and recorded. ROSANA LUND DO notified of admission to the unit. Orders received. See assessment for past medical history, medications and allergies. Patient and/or family oriented to unit. [facility] visitation policy reviewed. Clothing/patient valuable form completed. MARBELLA OLVERA
--- NOTE | 2018-06-27 09:39 | NUR ---
DR. TERAN AWARE OF CONSULT AND IN TO SEE PATIENT RE: PLAN OF CARE.
--- NOTE | 2018-06-27 10:31 | NUR ---
AWAITING FAXED MEDICATIONS LIST FROM [facility] TO UPDATE THE PATIENT'S MED REC; HE IS UNABLE TO RECALL ANY OF THE MEDICATIONS HE TAKES AT HOME.
[2018-06-27] MEDS ORDERED: VENTOLIN 02.5 MG/3 M INH (10:41)
[2018-06-27] MEDS ORDERED: MUCUS RELIEF C400 MG PO (10:43)
[2018-06-27] MEDS ORDERED: PROTONIX20 MG PO (10:45)
[2018-06-27] MEDS ORDERED: ULTRAM50 MG PO (10:47)
[2018-06-27] MEDS ORDERED: KENALOG 0.1%80 GM T (10:49)
--- NOTE | 2018-06-27 10:49 | NUR ---
MED REC UPDATED/CORRECTED USING INFORMATION PROVIDED BY [facility] VIA FAXED REPORT.
--- NOTE | 2018-06-27 11:15 | NUR ---
ADMINISTERED CARDIZEM IV ORDERED; STARTING HR 110'S UP TO 130 AFIB/IRREGULAR AT 11AM, HR NOW 100'S AFIB/IRREGULAR.
--- NOTE | 2018-06-27 13:13 | NUR ---
Nursing screen received and chart review completed. Patient admitted with severe sepsis and new A-fib. If patient demonstrates a decline in ADls please refer to OT for further evaluation. Thank you. Angel Wang OTR/l
--- NOTE | 2018-06-27 14:19 | NUR ---
MEDICATED WITH PRN PO ULTRAM FOR BACK PAIN.
--- NOTE | 2018-06-27 15:45 | NUR ---
PRN PO ULTRAM EFFECTIVE FOR BACK PAIN, PER PATIENT.
--- NOTE | 2018-06-27 16:31 | NUR ---
PATIENT REPORTS HAVING MIDSTERNAL CHEST PAIN STARTING AT 1620 RATES 5/10 ON PAIN SCALE WITH INCREASED SHORTNESS OF BREATH, PAIN IS NOT WORSE WITH INSPIRATION AND DOES NOT RADIATE. HE DENIES NAUSEA, SKIN IS WARM AND DRY, HR REMAINS AFIB AND IRREGULAR WITH RATE 100'S - 110'S ON NEWSCAST PRODUCER, ALSO C/O MILD HEADACHE. VS'S OBTAINED: BP 146/86, POX 96% ON O2 3L NC, PULSE 118, RESPIRATIONS 24/MINUTE. DR. TEAGUE NOTIFIED, OBTAINED ORDER FOR EKG AND TROPONIN X 3 Q3HR APART.
--- NOTE | 2018-06-27 20:19 | NUR ---
dr hernandez notified pt's hr in 120's-140 states he will look at ekg
[2018-06-28] VITALS (7 sets, daily range): BP systolic 115–148; BP diastolic 61–86
--- NOTE | 2018-06-28 03:04 | NUR ---
PT GIVEN ULTRAM PER REQUEST FOR BACK PAIN. DR CASTILLO NOTIFIED PT'S HEART RATE 120-140'S. NEW ORDERS REC'D.
--- NOTE | 2018-06-28 05:33 | NUR ---
DR CASTILLO NOTIFIED OF PT C/O CP. STAT EKG & TROP ORDERED
[2018-06-28 06:43] LABS: HEMATOCRIT 38.8 % (42.0-52.0); HEMOGLOBIN 12.6 g/dl (14.0-18.0); LYMPH # 0.7 10*3/uL (1.3-4.4); LYMPH % 10.3 % (27.0-41.0); MEAN CORPUSCULAR HGB 31.5 pg (27.0-31.0); MEAN CORPUSCULAR HGB CONC 32.5 g/dl (33.0-37.0); MEAN PLATELET VOLUME 10.2 fl (9.6-12.3); MONO # 0.2 10*3/uL (0.1-1.0); MONO % 3.2 % (3.0-9.0); NEUT # 5.6 10*3/uL (2.3-7.9); PLATELET COUNT AUTOMATED 100 10*3/uL (130-400); RED CELL DISTRI WIDTH 12.6 % (0-14.5); WHITE BLOOD COUNT 6.5 10*3/uL (4.8-10.8)
[2018-06-28 06:46] LABS: BUN 14 mg/dl (7-24); CHLORIDE 106 mmol/L (98-107); CHOLESTEROL 224 mg/dL (<200); POTASSIUM 4.1 mmol/L (3.5-5.1); SODIUM 140 mmol/L (136-145); TRIGLYCERIDES 117 mg/dl (<150); VLDL CHOLESTEROL 23 mg/dL (6-40)
[2018-06-28 06:55] LABS: HDL CHOLESTEROL 47 mg/dl (40-60); LDL CHOLESTEROL 154 mg/dL (9-159); THYROID STIM HORMONE (HS) 0.488 uIU/ml (0.358-4.75)
[2018-06-28 07:35] LABS: VITAMIN D, 25-HYDROXY 33.9 ng/mL (30-100)
--- NOTE | 2018-06-28 09:10 | NUR ---
PT SITTING UP EATING BREAKFAST. NO DISTRESS NOTED. WILL MONITOR
--- NOTE | 2018-06-28 11:00 | NUR ---
DR TERAN HERE TO SEE PT
--- NOTE | 2018-06-28 13:54 | NUR ---
Laborer Cutting Tool in to talk to patient. Patient states lives at HOME with . There are FEW steps in the home. 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 STATES HE IS 100% SERVICE CONNECTED AND THIS STAY SHOULD BE BILLED TO [facility]. ADAM CACERES IN BUSINESS OFFICE NOTIFIED. PT STATES I TELL THEM THAT EVERY TIME I AM HERE BUT IT NEVER GETS DONE RIGHT. PT STATES HE HAS HOME HEALTH THROUGH [place] BUT NOT SURE OF THE COMPANY, ALSO HAS OXYGEN AND A MOTORIZED WHEELCHAIR. [facility]KE [facility] CARE OF ME. OFFERS NO OTHER NEEDS AT THIS TIME. WILL CONTINUE TO FOLLOW. PT STATES HE WILL HAVE A RIDE HOME ON DISCHARGE.. BREANN MACIAS
--- NOTE | 2018-06-28 19:20 | NUR ---
[facility] STUDENT CAME TO NURSES STATION STATING "PATIENT IS VERY SHORT OF BREATH AND REQUESTING NURSE". WENT TO PATIENTS ROOM TO FIND HE IS EXTREMELY SHORT OF BREATH ON 4L [place] NC. SPO2 98%, BREATHING SETTLED TIME WENT ON. PATIENT STATES "I JUST WENT TO THE BATHROOM" OFFERED PATIENT A BEDSIDE COMMODE UNTIL ENDURANCE IS BACK TO PATIENTS NORM, HE DECLINED AT THIS TIME. BREATHING IS NOW NONLABORED AND CALL LIGHT IS WITHIN REACH.
--- NOTE | 2018-06-28 21:54 | NUR ---
PRN RESTORIL AND ULTRAM GIVEN AT THIS TIME FOR C/O BACK PAIN AND INSOMNIA. CALL LIGHT IS WITHIN REACH, WILL MONITOR EFFECT.
--- NOTE | 2018-06-28 23:00 | NUR ---
PRN RESTORIL AND ULTRAM SEEM EFFECTIVE, PATIENT IS SLEEPING WITH EASY AND REGULAR RESPERS ON ROOM AIR. CALL LIGHT IS WITHIN REACH.
[2018-06-29] VITALS: BP 142/72
--- NOTE | 2018-06-29 02:47 | NUR ---
PATIENT CALLED NURSE TO ROOM FOR INCREASED SHORTNESS OF BREATH, DIAPHORESIS, AND " I FEEL LIKE MY HEART IS RACING". VITAL SIGNS STABLE HR 120'S PER CM AND PATIENT IS STILL ON CARDIZEM DRIP. CALL PLACED TO DR. CASTILLO IN REQUEST FOR SOMETHING TO HELP PATIENT CALM DOWN. SEE NEW ORDERS.
--- NOTE | 2018-06-29 03:15 | NUR ---
ONE TIME DOSE OF ATIVAN GIVEN AT THIS TIME. CALL LIGHT IS WITHIN REACH, WILL MONITOR EFFECT.
[2018-06-29 04:00] VITALS: BP 136/62
[2018-06-29 06:40] LABS: HEMATOCRIT 39.2 % (42.0-52.0); HEMOGLOBIN 12.9 g/dl (14.0-18.0); LYMPH # 0.6 10*3/uL (1.3-4.4); LYMPH % 7.1 % (27.0-41.0); MEAN CORPUSCULAR HGB 31.9 pg (27.0-31.0); MEAN CORPUSCULAR HGB CONC 32.9 g/dl (33.0-37.0); MONO # 0.2 10*3/uL (0.1-1.0); MONO % 2.4 % (3.0-9.0); NEUT # 7.1 10*3/uL (2.3-7.9); NEUT % 89.9 % (47.0-73.0); PLATELET COUNT AUTOMATED 113 10*3/uL (130-400); RED BLOOD COUNT 4.04 10*6/uL (4.50-5.90); RED CELL DISTRI WIDTH 12.9 % (0-14.5); WHITE BLOOD COUNT 7.9 10*3/uL (4.8-10.8)
[2018-06-29 06:44] LABS: BUN 17 mg/dl (7-24); CHLORIDE 106 mmol/L (98-107); CREATININE 0.79 mg/dL (0.70-1.30); POTASSIUM 4.2 mmol/L (3.5-5.1); SODIUM 139 mmol/L (136-145)
[2018-06-29 08:00] VITALS: BP 160/84
--- NOTE | 2018-06-29 08:10 | NUR ---
PHYSICAL THERAPY Nursing screen received. PT orders also received. Thank you. Caro Stover,PT
--- NOTE | 2018-06-29 11:08 | NUR ---
PHYSICAL THERAPY PAtient with multiple doctors at this time. Caro Stover,PT
--- NOTE | 2018-06-29 11:10 | NUR ---
Patient not available for Occupational Therapy evaluation as he is with the doctor. Kelsea Wang OTR/l
[2018-06-29 12:00] VITALS: BP 164/86
--- NOTE | 2018-06-29 14:00 | NUR ---
Occupational Therapy evaluation offered this date, but patient declined stating that he receives home health PT at home and prefers to wait for therapy when returning home. OT explained to patient but he declined. Discharge OT order per patient's request. Thank you. Kelsea Wang OTR/Mo[place]
--- NOTE | 2018-06-29 14:16 | NUR ---
PHYSICAL THERAPY PAtient reports he does not want PT at this facility. He has home PT and only wants home PT. Thank you for this referral. Caro Stover,PT
--- NOTE | 2018-06-29 14:17 | NUR ---
PT STILL INSIST HE IS GOING HOME WITH NO NEW NEEDS. [facility] WILL CONTINUE TO FOLLOW.
[2018-06-29 16:00] VITALS: BP 154/92
--- NOTE | 2018-06-29 18:53 | NUR ---
CONSULT CALLED TO DR CLARK'S ANSWERING SERVICE. AWAITING CALL BACK. CONTINUE TO MONITOR THE PT.
--- NOTE | 2018-06-29 18:59 | NUR ---
DR CLARK IS NOT ROLLED MATERIALS WORKER. PSYCHIATRIC CONSULT CALLED TO [facility]. CONTINUE TO MONITOR THE PT.
[2018-06-30 06:50] LABS: HEMOGLOBIN 13.2 g/dl (14.0-18.0); LYMPH # 0.5 10*3/uL (1.3-4.4); LYMPH % 7.7 % (27.0-41.0); MEAN CELL VOLUME 97.1 fl (80.0-94.0); MEAN PLATELET VOLUME 9.8 fl (9.6-12.3); MONO # 0.3 10*3/uL (0.1-1.0); MONO % 4.1 % (3.0-9.0); NEUT # 5.4 10*3/uL (2.3-7.9); NEUT % 87.7 % (47.0-73.0); PLATELET COUNT AUTOMATED 109 10*3/uL (130-400); RED BLOOD COUNT 4.12 10*6/uL (4.50-5.90); RED CELL DISTRI WIDTH 12.9 % (0-14.5); WHITE BLOOD COUNT 6.1 10*3/uL (4.8-10.8)
[2018-06-30 07:20] LABS: BUN 17 mg/dl (7-24); CHLORIDE 106 mmol/L (98-107); CREATININE 0.75 mg/dL (0.70-1.30); POTASSIUM 3.6 mmol/L (3.5-5.1); SODIUM 141 mmol/L (136-145)
[2018-06-30 08:00] VITALS: BP 112/70
--- NOTE | 2018-06-30 09:53 | NUR ---
DR GATES ASKED THIS NURSE IF DR GARCIA WAS ON CONSULT RE; NEED FOR COUMADIN AND HISTORY OF ESPO VARCIES. NOTIFIED NO CONSULT FOR DR GARCIA YET. DR WING NOTIFIED.
[2018-06-30 12:00] VITALS: BP 139/82
--- NOTE | 2018-06-30 13:20 | NUR ---
DR GARCIA NOTIFIED OF CONSULT. ORDERS RECEIVED. STATUS AND OLD EGD REPORT DISCUSSED.
[2018-06-30 13:41] LABS: INTERNATIONAL NORM RATIO 1.2 (2.0-3.5)
--- NOTE | 2018-06-30 14:20 | NUR ---
ATTEMPTED TO CALL DR GARCIA. VOICEMAIL FULL AND UNABLE TO LEAVE MESSAGE. WILL ATTEMPT AGAIN.
--- NOTE | 2018-06-30 14:33 | NUR ---
DR WING NOTIFIED OF DISCUSSION WITH DR GARCIA AND LABS HE ORDERED REVIEWED. WILL NOTIFY HIM WHEN I SPEAK WITH DR GARCIA.
--- NOTE | 2018-06-30 14:35 | NUR ---
SREE VELÁSQUEZ NP IN TO SEE PT. SHE STATES PT WOULD LIKE TO FOLLOW UP WITH [facility] ONCE DISCHARGED.
[2018-06-30 16:00] VITALS: BP 129/72
--- NOTE | 2018-06-30 16:54 | NUR ---
DR GARCIA CALLED AGAIN HE STATES HE IS ON THE OTHER LINE AND WILL CALL BACK
--- NOTE | 2018-06-30 20:25 | NUR ---
24 HR CHART CHECK COMPLETE.
[2018-07-01] VITALS (7 sets, daily range): BP systolic 148–172; BP diastolic 78–92
[2018-07-01 06:32] LABS: HEMATOCRIT 42.5 % (42.0-52.0); HEMOGLOBIN 13.7 g/dl (14.0-18.0); LYMPH # 0.6 10*3/uL (1.3-4.4); LYMPH % 7.6 % (27.0-41.0); MEAN CELL VOLUME 96.6 fl (80.0-94.0); MEAN CORPUSCULAR HGB 31.1 pg (27.0-31.0); MEAN CORPUSCULAR HGB CONC 32.2 g/dl (33.0-37.0); MEAN PLATELET VOLUME 9.7 fl (9.6-12.3); MONO # 0.7 10*3/uL (0.1-1.0); MONO % 8.6 % (3.0-9.0); NEUT # 6.2 10*3/uL (2.3-7.9); NEUT % 82.7 % (47.0-73.0); PLATELET COUNT AUTOMATED 115 10*3/uL (130-400); RED CELL DISTRI WIDTH 12.6 % (0-14.5); WHITE BLOOD COUNT 7.5 10*3/uL (4.8-10.8)
[2018-07-01 06:59] LABS: BUN 20 mg/dl (7-24); CHLORIDE 105 mmol/L (98-107); CREATININE 0.74 mg/dL (0.70-1.30); POTASSIUM 3.9 mmol/L (3.5-5.1); SODIUM 141 mmol/L (136-145)
--- NOTE | 2018-07-01 11:26 | NUR ---
CARDIZEM DRIP STOPPED. HR 70'S. PT REMAINS AFIBB. WILL MONITOR
--- NOTE | 2018-07-01 11:42 | NUR ---
SPOKE WITH DR COOK NOTIFIED OF HR IN 70-80'S. ORDERS RECEIVED TO XIANG NUNES.
--- NOTE | 2018-07-01 12:00 | NUR ---
SPOKE WITH DR GARCIA RE: COUMADIN ORDERS FOR AFIBB AND PT HISTORY OF ESOPHAGEAL VARICES. ORDERS RECEIVED FOR COUAMDIN 2.5MG DAILY THEN NOTIFIED PT IS ON LOVENOX BID. DR GARCIA ORDERED FOR COUMADIN TO BE DC'D AND PT TO CONTINUE WITH LOVENOX ONLY. DR ANGELA NOTIFIED.
--- NOTE | 2018-07-01 20:18 | NUR ---
PATIENT ATTENDENT STATED PTS B/P WAS ELEVATED, MANUAL BP OBTAINED. 152/92, PT. STATED HE WAS IN PAIN, BACK WAS HURTING. ULTRAM GIVEN UPON REQUEST AND LOPRESSOR WAS GIVEN EARLY. WILL CONTINUE TO MONITOR. CARRIE SMITH RN
--- NOTE | 2018-07-01 21:45 | NUR ---
PT. SLEEPING, RESTORIL AND ULTRAM EFFECTIVE.
--- NOTE | 2018-07-01 21:59 | NUR ---
PT'S REPEAT B/P 148/78 MANUALLY IN RIGHT ARM.
[2018-07-02] VITALS: BP 148/78
--- NOTE | 2018-07-02 00:34 | NUR ---
PT C/O ANXIETY R/T PTSD AND REQUEST AN ANXIETY MEDICATION. I CONTACTED DR. QUINTERO WHO ORDERED 1 MG ATIVAN IV NOW.
--- NOTE | 2018-07-02 01:00 | NUR ---
IV ATIVAN EFFECTIVE PT RESTING COMFORTABLY.
[2018-07-02 06:33] LABS: HEMATOCRIT 40.8 % (42.0-52.0); HEMOGLOBIN 13.4 g/dl (14.0-18.0); LYMPH # 0.4 10*3/uL (1.3-4.4); LYMPH % 8.2 % (27.0-41.0); MEAN CORPUSCULAR HGB 31.5 pg (27.0-31.0); MEAN CORPUSCULAR HGB CONC 32.8 g/dl (33.0-37.0); MEAN PLATELET VOLUME 9.7 fl (9.6-12.3); MONO # 0.2 10*3/uL (0.1-1.0); MONO % 3.3 % (3.0-9.0); NEUT # 4.3 10*3/uL (2.3-7.9); NEUT % 87.7 % (47.0-73.0); PLATELET COUNT AUTOMATED 97 10*3/uL (130-400); RED BLOOD COUNT 4.25 10*6/uL (4.50-5.90); RED CELL DISTRI WIDTH 12.5 % (0-14.5); WHITE BLOOD COUNT 4.9 10*3/uL (4.8-10.8)
[2018-07-02 07:07] LABS: BUN 18 mg/dl (7-24); CHLORIDE 102 mmol/L (98-107); CREATININE 0.64 mg/dL (0.70-1.30); POTASSIUM 3.8 mmol/L (3.5-5.1); SODIUM 138 mmol/L (136-145)
[2018-07-02 07:32] LABS: INTERNATIONAL NORM RATIO 1.2 (2.0-3.5)
--- NOTE | 2018-07-02 08:45 | NUR ---
PT RESTING IN BED. RESP-EASY AND REGULAR. TOLERATED ROUTINE MED WITH NO PROBLEM. OXYGEN IN USE. CALL LIGHT IN REACH. SEE SHIFT ASSESSMENT. NO C/O AT THIS TIME.
--- NOTE | 2018-07-02 09:30 | NUR ---
TOLERATED ROUTINE MED WITH NO PROBLEM.
--- NOTE | 2018-07-02 10:30 | NUR ---
PT SITTING UP IN RECLINER CHAIR. RESP-EASY AND REGULAR. NO C/O AT THIS TIME. CALL LIGHT IN REACH.
[2018-07-02 12:00] VITALS: BP 147/56
--- NOTE | 2018-07-02 12:35 | NUR ---
RESTING IN CHAIR. NO C/O AT THIS TIME. CALL LIGHT IN REACH.
--- NOTE | 2018-07-02 14:45 | NUR ---
PT IN ROOM, THEY BOTH STATE PT HAS HOME HEALTH THROUGH [place]. THEY DO NOT KNOW COMPANY NAME. WHEN ASK ABOUT WHAT SERVICES THEY PROVIDE IT IS AID SERVICE. I TOLD THEY HE NEEDED NURSING AND PT SERVICES. THEY STATE THEY WOULD LIKE IT UNDER SAME COMPANY IF POSSIBLE. STATES SHE HAS NAME AT HOME AND WILL CALL ME WHEN SHE GETS HOME TO TELL ME NAME. WILL CONTINUE TO FOLLOW.
[2018-07-02 16:00] VITALS: BP 123/47
[2018-07-02] MEDS ORDERED: DIGOXIN250 MCG PO (16:17)
[2018-07-02] MEDS ORDERED: METOPROLOL TART50 M1 PO (16:17)
[2018-07-02] MEDS ORDERED: PREDNISONE10 MG PO (16:17)
--- NOTE | 2018-07-02 17:26 | NUR ---
PT C/O BACK PAIN, RATES PAIN 8 ON PAIN SCALE 0-10. MEDICATED WITH ULTRAM PO PER PRN ORDER, SEE EMAR. SITTING UP AT SIDE OF BED. CALL LIGHT IN REACH.
--- NOTE | 2018-07-02 19:34 | NUR ---
TALKED WITH DR. CASTILLO MADE AWARE DR. GARCIA IN TO SEE PT. HE SAID START PT ON 2.5MG OF COUMADIN AND DO PT PTT TO WEAN HIM OFF LOVENOX. DR. CASTILLO STATES HE WILL PUT IT IN.
[2018-07-02 20:00] VITALS: BP 160/96
[2018-07-03] VITALS: BP 180/80
--- NOTE | 2018-07-03 02:40 | NUR ---
PT ACCIDENTALLY REMOVED BOTH OF HIS IV SITES BY ROLLING IN HIS SLEEP. AYALA RESTARTED RT ARM. TOLERATED WELL.
--- NOTE | 2018-07-03 03:14 | NUR ---
24 HR chart check completed.
--- NOTE | 2018-07-03 07:30 | NUR ---
24 HOUR CHART CHECK COMPLETE.
[2018-07-03 07:42] LABS: INTERNATIONAL NORM RATIO 1.2 (2.0-3.5)
--- NOTE | 2018-07-03 11:00 | NUR ---
Patient not available for OT evaluation as he is with doctors. Kelsea Wang OTR/l
--- NOTE | 2018-07-03 11:12 | NUR ---
PT COMPLAINED OF 7/10 BACK PAIN. PRN TRAMADOL ADMINISTERED PRESCRIBED. WILL CONTINUE TO MONITOR THE PT AND REASSESS HIS PAIN WITHIN THE HOUR.
--- NOTE | 2018-07-03 11:28 | NUR ---
PHYSICAL THERAPY PAtient with nursing at this time. Caro Stover,PT
[2018-07-03 12:00] VITALS: BP 148/90
--- NOTE | 2018-07-03 12:11 | NUR ---
PT RESTING COMFORTABLY IN BED. NO SIGNS OF DISTRESS. TERESA NICHOLS
--- NOTE | 2018-07-03 13:14 | NUR ---
Occupational Therapy offered this date. Patient declines the need for any therapy on an inpatient basis. [facility]. Discharge OT referral. Kelsea Wang OTR/l
--- NOTE | 2018-07-03 13:36 | NUR ---
PT HAD 5 BEAT RUN OF VTACH. PT ASYMPTOMATIC. VITALS WNL. STAT EKG ORDERED. DR. NEWBERRY NOTIFIED. NO NEW ORDERS RECIEVED AT THIS TIME.
--- NOTE | 2018-07-03 14:03 | NUR ---
PHYSICAL THERAPY PT orders received again. PT approached patient and patient again reports the following: PAtient reports he does not want PT at this facility. He has home PT and only wants home PT. Thank you for this referral. Caro Stover,PT
[2018-07-03 14:33] LABS: BUN 20 mg/dl (7-24); CHLORIDE 99 mmol/L (98-107); CREATININE 0.81 mg/dL (0.70-1.30); POTASSIUM 3.7 mmol/L (3.5-5.1); SODIUM 136 mmol/L (136-145)
[2018-07-03 14:34] LABS: TROPONIN I 0.043 ng/ml (<0.045)
[2018-07-03 16:00] VITALS: BP 148/98
[2018-07-03 20:00] VITALS: BP 144/116
[2018-07-03 21:00] VITALS: BP 144/78
--- NOTE | 2018-07-03 21:34 | NUR ---
PT MEDICATED W/ULTRAM FOR C/O H/A. PT RESTING QUIETLY IN BED W/LIGHTS OFF. BED IN LOW POSITION W/ALARM ON. CALL LIGHT IN REACH.
[2018-07-04] VITALS: BP 101/58
[2018-07-04 06:37] LABS: HEMATOCRIT 40.7 % (42.0-52.0); HEMOGLOBIN 13.8 g/dl (14.0-18.0); LYMPH # 0.4 10*3/uL (1.3-4.4); LYMPH % 6.4 % (27.0-41.0); MEAN CELL VOLUME 95.1 fl (80.0-94.0); MEAN CORPUSCULAR HGB 32.2 pg (27.0-31.0); MEAN CORPUSCULAR HGB CONC 33.9 g/dl (33.0-37.0); MEAN PLATELET VOLUME 10.1 fl (9.6-12.3); MONO # 0.3 10*3/uL (0.1-1.0); MONO % 4.9 % (3.0-9.0); NEUT # 5.2 10*3/uL (2.3-7.9); NEUT % 87.7 % (47.0-73.0); PLATELET COUNT AUTOMATED 92 10*3/uL (130-400); RED BLOOD COUNT 4.28 10*6/uL (4.50-5.90); RED CELL DISTRI WIDTH 12.5 % (0-14.5); WHITE BLOOD COUNT 5.9 10*3/uL (4.8-10.8)
--- NOTE | 2018-07-04 06:45 | NUR ---
PT C/O SOB. PT RESTING QUIETLY IN BED. SLIGHT LABORED BREATHING NOTED. SAT 97% ON 3LNC. RESP NOTIFIED OF PT NEED FOR AEROSOL TX. WILL MONITOR.
[2018-07-04 06:51] LABS: BUN 20 mg/dl (7-24); CHLORIDE 100 mmol/L (98-107); CREATININE 0.69 mg/dL (0.70-1.30); POTASSIUM 3.7 mmol/L (3.5-5.1); SODIUM 139 mmol/L (136-145)
[2018-07-04 07:10] LABS: INTERNATIONAL NORM RATIO 1.3 (2.0-3.5)
--- NOTE | 2018-07-04 07:30 | NUR ---
24 HR CHART CHECK COMPLETE.
[2018-07-04 10:03] VITALS: BP 150/70
[2018-07-04 11:55] VITALS: BP 152/78
--- NOTE | 2018-07-04 12:33 | NUR ---
PT STATES HE WILL GO HOME WITH [facility] OF [facility].
[2018-07-04 16:00] VITALS: BP 149/76
[2018-07-04 20:00] VITALS: BP 150/80
[2018-07-05] VITALS: BP 136/80
--- NOTE | 2018-07-05 02:40 | NUR ---
24 HR chart check completed.
--- NOTE | 2018-07-05 03:35 | NUR ---
Patient sustained a fall on 07/05/18, at . The fall was found by a staff member. The patient sustained minor bruise, redness injury. Details: Patient was assisted to chair. Intervention included: bandaid/drsg.applied, , , , . Medications were reviewed. Fall signage initiated per policy. Notification of fall included: Nursing Neuropsychology Medical Consultant, Dr hernandez. Fall risk level was reassessed per policy with review of contributory medications and environmental factors. See intervention.
--- NOTE | 2018-07-05 04:08 | NUR ---
MARLY PRATT [id number] Please refer to the physician's history and physical for past medical history, comorbid conditions, and allergies. Diagnosis: PNA Tru Score: 19,LOW OR NO RISK WOUND DESCRIPTIONS: Wound Number: 1 Location of the wound: right ac Type of wound: skin tear Thickness: Partial Size: 4.5cm x 6.0cm x 0.1cm Tunneling: none Undermining: none Sinus Tract: none Presence of Exudate: Sanguineous Amount: Light Color: Red Odor: None Periwound Skin Appearance: Normal Wound edges: approximated Pain (associated with wound): pt stated its burning How does patient state this happened? pt fall this am Surface the patient is resting on: Isoflex SKIN PREVENTION RECOMMENDATION: 1. Pressure redistribution support surface as appropriate 2. Elevate heels 3. Remove boots/TEDS every shift and reapply 4. Head of bed 30 degrees as tolerated 5. Assess nutrition and hydration 6. Manage moisture 7. Avoid the use of containment devices while in bed 8. Use absorptive products on surfaces limit layers of linens on bed 9. Turn and reposition every 1-2 hours in bed and every 1 hour in chair as tolerated 10. Weight shifts every 15 minutes while up in chair 11. Offloading with pillows or device to keep heels elevated off bed 12. Monitor skin at least every shift 13. Inspect under medical devices twice a day WOUND TREATMENT RECOMMENDATIONS: Skin tear guidelines: Cleanse right ac with nss and apply sureprep around the wound hydrogel to wound bed secure with versatel then cover with non-adherent dressing and rolled gauze.
[2018-07-05 07:55] LABS: HEMATOCRIT 43.7 % (42.0-52.0); HEMOGLOBIN 14.5 g/dl (14.0-18.0); LYMPH # 0.6 10*3/uL (1.3-4.4); LYMPH % 8.4 % (27.0-41.0); MEAN CELL VOLUME 95.8 fl (80.0-94.0); MEAN CORPUSCULAR HGB 31.8 pg (27.0-31.0); MEAN CORPUSCULAR HGB CONC 33.2 g/dl (33.0-37.0); MONO # 0.3 10*3/uL (0.1-1.0); MONO % 4.1 % (3.0-9.0); NEUT # 5.6 10*3/uL (2.3-7.9); PLATELET COUNT AUTOMATED 93 10*3/uL (130-400); RED BLOOD COUNT 4.56 10*6/uL (4.50-5.90); RED CELL DISTRI WIDTH 12.6 % (0-14.5); WHITE BLOOD COUNT 6.5 10*3/uL (4.8-10.8)
[2018-07-05 08:00] VITALS: BP 140/98
[2018-07-05 08:06] LABS: BUN 18 mg/dl (7-24); CHLORIDE 98 mmol/L (98-107); CREATININE 0.79 mg/dL (0.70-1.30); POTASSIUM 3.8 mmol/L (3.5-5.1); SODIUM 139 mmol/L (136-145)
[2018-07-05 08:07] LABS: INTERNATIONAL NORM RATIO 1.4 (2.0-3.5)
--- NOTE | 2018-07-05 08:47 | NUR ---
Nursing screen received. Occupational Therapy referral received and patient declined OT services. No OT indicated per patient's refusal. Thank you. Kelsea Wang OTR/l
--- NOTE | 2018-07-05 10:34 | NUR ---
Dr. Mccarty notified of wound care recommendations.
--- NOTE | 2018-07-05 10:42 | NUR ---
Patient is on a regular diet and eating well; 100% PO intake noted. Pt is 6'2" and 232lb. Albumin currently 3.7. No nutrition interventions recommended at this time. Will monitor. Miriam Green [facility] Dietetic Student
[2018-07-05 12:00] VITALS: BP 167/84
--- NOTE | 2018-07-05 15:04 | NUR ---
pt complain of generalized pain, tramadol given as ordered,per patient request
[2018-07-05] MEDS ORDERED: METOPROLOL TART50 M1 PO (15:16)
[2018-07-05] MEDS ORDERED: COUMADIN5 M2 PO (15:18)
[2018-07-05 16:00] VITALS: BP 150/76
--- NOTE | 2018-07-05 19:30 | NUR ---
PATIENT MEDICATED WITH TYLENOL PER PRN ORDER FOR C/O BACK PAIN. RATED PAIN A 8-9/10 WITH 10 BEING THE WORST. SEE EMAR. REINFORCED USE OF CALL LIGHT.
[2018-07-05 20:00] VITALS: BP 148/76
[2018-07-06] VITALS: BP 150/80
[2018-07-06 06:32] LABS: INTERNATIONAL NORM RATIO 1.9 (2.0-3.5)
[2018-07-06 08:00] VITALS: BP 140/78; BP 141/79
--- NOTE | 2018-07-06 11:18 | NUR ---
[facility] ABOUT [facility], THEY STATE THAT UNLESS PT COMES IN THE CLINIC TO HAVE INR'S DRAWN THEY DO NOT MANAGE IT, BECAUSE IT IS MANAGED BY AN MD IN [place]. SPOKE WITH [facility] HERE AT HOSPITAL OFFICE AND THEY WILL MANAGE COUMADIN. [facility] NOTIFIED THAT [facility] WILL MANAGE COUMADIN. INFORMED BURTON AT [facility] THAT [facility] WILL MANAGE COUMADIN, TO SEND INR REPORTS TO THEM. ORDER AND DISCHARGE MEDS FAXED TO [facility].
--- NOTE | 2018-07-06 11:56 | NUR ---
D/C WOUNDCARE PHOTOS COMPLETED PER PROTOCOL. DRESSING CHANGE TO RIGHT ANTECUBITAL COMPLETED PER PHYSICIAN ORDER. PT TOLERATED WELL. AMPARO D/C'D. AWAITING PT FAMILY FOR D/C LITIGATION COUNSEL.
--- NOTE | 2018-07-06 12:32 | NUR ---
Discharge instructions reviewed with patient/family. Patient receptive and verbalizes understanding. Follow-up care arranged. Written instructions given to patient/family. EVAN GRIFFITH
[2018-07-23] MEDS ORDERED: LOPRESSOR50 M1 PO (22:59)
[2018-07-24] MEDS ORDERED: TRAZODONE150 MG PO (01:11)
[2018-07-24] MEDS ORDERED: AVPAK AZITHROM250 MG PO (15:42)
[2018-07-24] MEDS ORDERED: COUMADIN6 M2 PO (15:42)
[2018-08-09] MEDS ORDERED: METOPROLOL TAR100 M1 PO (08:29)
[2018-08-09] MEDS ORDERED: LASIX20 MG PO (08:30)
== END 2018-07-06 12:32 | disposition home health service (06) | DRG 871 ==
LOC: ED 04:39 → EDHOLD 05:42 → 5E 05:42
PROVIDERS: Family Medicine; Internal Medicine; Internal Medicine Gastroenterology; Student in an Organized Health Care Education/Training Program; ADMIT Internal Medicine
DX: A41.9 Sepsis, unspecified organism (principal); J96.21 Acute and chronic respiratory failure with hypoxia; J18.9 Pneumonia, unspecified organism; J96.22 Acute and chronic respiratory failure with hypercapnia; J44.0 Chronic obstructive pulmonary disease with (acute) lower respiratory infection; I50.42 Chronic combined systolic (congestive) and diastolic (congestive) heart failure; I85.00 Esophageal varices without bleeding; I48.91 Unspecified atrial fibrillation; R65.20 Severe sepsis without septic shock; D69.6 Thrombocytopenia, unspecified; I11.0 Hypertensive heart disease with heart failure; K21.9 Gastro-esophageal reflux disease without esophagitis; E66.09 Other obesity due to excess calories; F41.9 Anxiety disorder, unspecified; G89.29 Other chronic pain; I35.0 Nonrheumatic aortic (valve) stenosis; F32.9 Major depressive disorder, single episode, unspecified; F43.10 Post-traumatic stress disorder, unspecified; M48.00 Spinal stenosis, site unspecified; Z96.651 Presence of right artificial knee joint; Z96.642 Presence of left artificial hip joint; K74.60 Unspecified cirrhosis of liver; M54.9 Dorsalgia, unspecified; G47.33 Obstructive sleep apnea (adult) (pediatric); R73.03 Prediabetes; I73.9 Peripheral vascular disease, unspecified; R73.9 Hyperglycemia, unspecified; E83.41 Hypermagnesemia; D53.9 Nutritional anemia, unspecified; I25.10 Atherosclerotic heart disease of native coronary artery without angina pectoris; I25.2 Old myocardial infarction; Z99.81 Dependence on supplemental oxygen; Z88.8 Allergy status to other drugs, medicaments and biological substances; Z91.041 Radiographic dye allergy status; Z86.718 Personal history of other venous thrombosis and embolism; Z85.89 Personal history of malignant neoplasm of other organs and systems; Z90.49 Acquired absence of other specified parts of digestive tract; Z81.2 Family history of tobacco abuse and dependence; Z82.49 Family history of ischemic heart disease and other diseases of the circulatory system; Z83.79 Family history of other diseases of the digestive system; Z80.8 Family history of malignant neoplasm of other organs or systems; Z79.899 Other long term (current) drug therapy; Z92.3 Personal history of irradiation; Z95.2 Presence of prosthetic heart valve; Z68.29 Body mass index [BMI] 29.0-29.9, adult

== ENCOUNTER 2018-07-27 21:39 | Inpatient (IN) | payer MEDICARE ==
[~2018-07-27] VITALS: Ht 187.9 cm; Wt 116.1 kg
--- NOTE | ~2018-07-27 | EKG ---
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 Rob : 1930 Requested By: SHEMAR GARCIA Order Number: [id number] Reading MD: Davina Edwards Measurements Intervals [place] Rate: 115 P: [place]: QRS: -55 QRSD: 115 T: 105 QT: 347 QTc: 480 Interpretive Statements Atrial fibrillation with RVR Nonspecific IVCD with LAD Probable inferior infarct, recent Lateral leads are also involved Compared to ECG 07/24/2018 01:29:57 Intraventricular conduction delay now present Left bundle-branch block no longer present Left ventricular hypertrophy no longer present Early repolarization no longer present Myocardial infarct finding still present Electronically Signed On 08-01-2018 12:54:50 PDT by Davina Edwards CM:EKGRPT:ELECTROCARDIOGRAM REPORT [id number] SHEMAR KING DRAFT REPORT SHEMAR GARCIA DO
--- NOTE | ~2018-07-27 | EKG ---
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: Elvin Jama : 1930 Requested By: SHEMAR GARCIA Order Number: [id number] Reading MD: Davina Edwards Measurements Intervals [place] Rate: 110 P: [place]: QRS: -53 QRSD: 110 T: 113 QT: 293 QTc: 397 Interpretive Statements Atrial fibrillation with RVR LVH with IVCD, LAD and secondary repol abnrm Inferior infarct, old Baseline wander in lead(s) II,III,aVF,V1,V2,V4,V5,V6 Compared to ECG 07/24/2018 01:29:57 Intraventricular conduction delay now present Left bundle-branch block no longer present Myocardial infarct finding still present Electronically Signed On 08-01-2018 12:59:21 PDT by Davina Edwards CM:EKGRPT:ELECTROCARDIOGRAM REPORT [id number] SHEMAR KING DRAFT REPORT SHEMAR GARCIA DO
--- NOTE | ~2018-07-27 | PR ---
[place], [place] PROGRESS NOTE NAME: MARLY PRATT UNIT #: [id number] ROOM: 407 DOCTOR: ARNULFO MEHTA DO BIRTHDATE: [birth year] DOS: 08/02/2018 PULMONARY PROGRESS NOTE SUBJECTIVE: The patient states that he feels much better today. The patient states that he did not wake up at 5:00 a.m. with shortness of breath for the first time in the past few days. The patient has not had any fevers or chills. The patient denies any hemoptysis. The patient states that he feels like his breathing is much better. The patient wonders when he thinks he can go home. Otherwise, the patient is doing well. OBJECTIVE: VITAL SIGNS: The patient's temperature is 98.3, pulse rate 75, respiratory rate 18, blood pressure is 108/42, pulse ox 95 on 3 liters by nasal cannula. HEENT: Normocephalic, atraumatic. Eyes nonicteric. NECK: Supple, nontender, trachea midline. CARDIOVASCULAR: S1, S2 audible. LUNGS: Scattered crackles throughout, bilateral expiratory wheezes, improved since the day prior. ABDOMEN: Soft, obese, nontender. EXTREMITIES: 1+ pitting edema, left lower extremity; trace edema, right lower extremity. MUSCULOSKELETAL: Without any acute deformities. CENTRAL NERVOUS SYSTEM: Cranial nerves 2-12 grossly intact. No focal neurologic deficits. ASSESSMENTS: 1. Bilateral healthcare-associated pneumonia. 2. Peripheral edema. 3. Pancytopenia. 4. Atrial fibrillation. 5. Hemoptysis/blood-tinged sputum, stable. PLAN: Continue bronchodilators, oxygen supplementation, ceftriaxone and Levaquin. The patient will be continued on steroids today. Plan for discharge tomorrow with antibiotics and steroid taper. Any other changes will be based on progression of illness. Thank you for allowing us to participate in the care. Rajat Mehta DO [place], [place] PROGRESS NOTE NAME: MARLY PRATT UNIT #: [id number] ROOM: 407 DOCTOR: ARNULFO MEHTA DO BIRTHDATE: [birth year] [facility] MD CM:PHILIP 08 [id number] ARNULFO MEHTA DO 08/02/18 0934 interface
--- NOTE | ~2018-07-27 | PR ---
[place], [place] PROGRESS NOTE NAME: MARLY PRATT UNIT #: [id number] ROOM: 407 DOCTOR: ARNULFO MEHTA DO BIRTHDATE: [birth year] DOS: 08/03/2018 SUBJECTIVE: The patient states that he feels better today. The patient states that he has not had any shortness of breath. The patient states that he feels well enough to go home. The patient denies any hemoptysis, fevers, chills or chest pain. OBJECTIVE: VITAL SIGNS: The patient's temperature is 98.0, pulse 62, respirations 20, blood pressure 133/74, patient is 94% on 4 liters by nasal cannula. HEENT: Normocephalic, atraumatic. Eyes nonicteric. NECK: Supple, nontender, trachea midline. CARDIOVASCULAR: S1, S2 audible. LUNGS: Scattered crackles throughout, improved; bilateral expiratory wheezes, improved. ABDOMEN: Soft, obese, nontender. EXTREMITIES: 1+ pitting edema in left lower extremity, right lower extremity has trace edema. MUSCULOSKELETAL: Without any acute deformities. CENTRAL NERVOUS SYSTEM: Cranial nerves 2-12 grossly intact. No focal neurologic deficits. ASSESSMENT: 1. Bilateral healthcare-associated pneumonia. 2. Peripheral edema. 3. Pancytopenia. 4. Atrial fibrillation. 5. Hemoptysis/blood-tinged sputum, stable. PLAN: Continue bronchodilators, oxygen supplementation, ceftriaxone and Levaquin. The patient will be continued on steroids today and plan for discharge tomorrow with antibiotics and steroid taper. Any other changes will be based on progression of illness. The patient is stable for discharge from a Pulmonology standpoint. Rajat Mehta DO [place], [place] PROGRESS NOTE NAME: MARLY PRATT UNIT #: [id number] ROOM: 407 DOCTOR: ARNULFO MEHTA DO BIRTHDATE: [birth year] [facility] MD CM:PHILIP Lee: 08/03/18 0849 [id number] ARNULFO MEHTA DO 08/03/18 1746 interface
--- NOTE | ~2018-07-27 | PR ---
[place], [place] PROGRESS NOTE NAME: MARLY PRATT UNIT #: [id number] ROOM: 407 DOCTOR: BILLY ALONSO MD,HARINDER BIRTHDATE: [birth year] DOS: 07/31/2018 PULMONARY PROGRESS NOTE SUBJECTIVE: The patient was independently seen and examined in iogh-sd-mgog encounter, history was confirmed. Physical examination performed. Labs were reviewed. The note done by the manager medical was approved as well. The patient does not have any symptoms of hemoptysis at this time. Denies symptoms of chest pain. Shortness of breath has been improving. Coughing has been decreased, but not resolved. No symptoms of fever or chills. Denies symptoms of nausea, vomiting, diarrhea, abdominal pain, hematemesis, melena, or hematochezia. General weakness with fatigue was somewhat discussed with the patient, but improving. Remaining systems reviewed. They were noted all negative. PHYSICAL EXAMINATION: VITAL SIGNS: For the patient this morning; normal temperature, respiratory rate 20, heart rate 95, blood pressure 140/78. Pulse oxygen saturation recorded as 94% saturation. HEENT: Shows head was atraumatic. Eyes nonicterus. NECK: Supple. CARDIOVASCULAR SYSTEM: S1, S2 audible. LUNGS: Decreased breath sounds in the lower portion of the lungs bilaterally. ABDOMEN: Soft, nontender. Bowel sounds present. EXTREMITIES: No acute change. LABORATORY DATA: Sputum culture was noted preliminary normal jose c. Final results are pending. Gram stain; many white blood cells, moderate epithelial cells, moderate gram-positive cocci in pairs, chains and clusters. CBC this morning; WBC count 4.6, hemoglobin 11.5, the platelet count 93,000. The BMP this morning; BUN normal, creatinine was normal. IMPRESSION: 1. The patient with pancytopenia, which is noted at this time with partial improvement in the platelet count. 2. Rule out deep venous thrombosis of the left lower extremity. 3. Acute bilateral pneumonia. 4. Erick sputum more than hemoptysis, which has been improving. PLAN OF TREATMENT: Monitor culture results. Continue current antibiotics. Bronchodilators. Other therapy, plan of management. Additional treatment changes will be made based on the progression of the illness. [place], [place] PROGRESS NOTE NAME: MARLY PRATT UNIT #: [id number] ROOM: 407 DOCTOR: HARINDER HERNANDEZ MD BIRTHDATE: [birth year] HARINDER CERVANTES MD CM:PHILIP [id number] HARINDER ALONSO MD 08/01/18 0613 interface
--- NOTE | ~2018-07-27 | EKG ---
[place], [place] ELECTROCARDIOGRAM REPORT NAME: MARLY PRATT UNIT #: [id number] ROOM: 407 DOCTOR: ALICE DRAFT REPORT BIRTHDATE: [birth year] [facility] Test Date: 2018-07-28 Test Time: 07:09:27 Pat Name: MARLY PRATT Department: Room: 407 Gender: M Healthcare Representative: : 1930 Requested By: ZULEMA SIFUENTES Order Number: [id number] Reading MD: Davina Edwards Measurements Intervals [place] Rate: 122 P: [place]: QRS: -58 QRSD: 114 T: 129 QT: 337 QTc: 480 Interpretive Statements Atrial fibrillation with RVR Ventricular premature complex Incomplete left bundle branch block Inferior infarct, old Baseline wander in lead(s) V4 Compared to ECG 07/24/2018 01:29:57 Ventricular premature complex(es) now present Left ventricular hypertrophy no longer present Early repolarization no longer present Myocardial infarct finding still present Electronically Signed On 08-01-2018 12:59:51 PDT by Davina Edwarsd CM:EKGRPT:ELECTROCARDIOGRAM REPORT [id number] ZULEMA KING DRAFT REPORT ZULEMA SIFUENTES DO
--- NOTE | ~2018-07-27 | CON ---
[place], [place] REPORT OF CONSULTATION [id number] UNIT #: [id number] ROOM: [facility] DOCTOR: HARINDER HERNANDEZ MD BIRTHDATE: [birth year] DOS: 07/29/2018 PULMONARY CONSULTATION EVALUATION AND MANAGEMENT CONSULTATION REQUESTED BY: Hospitalist service. REASON FOR CONSULTATION: The patient with current findings of acute hemoptysis. HISTORY OF PRESENT ILLNESS: This is an 88-year-old white male patient who has been admitted to the hospital on the date of 07/27/2018, under the care of the hospitalist services. The patient was admitted to the hospital as the patient has been known with history of chronic atrial fibrillation and aortic stenosis. The patient has a previous surgical repair done with transcutaneous aortic valve replacement on 10/05/2017. He presented to the hospital complaining of pain, which he is describe across the chest with associated symptoms of shortness of breath. The symptoms have been noted with gradual progression. The patient denies symptoms of fever or chills with that. Denies symptoms of wheezing. He has been admitted to the hospital and treated for all this conditions. This morning, the patient has expectoration noted what appeared like a clotted blood at the bedside. I was asked to assess the patient for respiratory symptoms. He was stating that shortness of breath has been resolved at the present time and not actively present. Cough has been reported intermittently. Denies symptoms of active wheezing. REVIEW OF SYSTEMS: CONSTITUTIONAL: Fatigue and tiredness noted without any symptoms of fever or chills. EYES: Denies burning, redness, or tenderness. EARS, NOSE, THROAT SYMPTOMS: Denies sore throat, hoarseness, otalgia, postnasal drainage or epistaxis. CARDIOVASCULAR: Denies angina pain, edema or pain of the lower extremities. GASTROINTESTINAL: Denies dysphagia, nausea, vomiting, diarrhea, abdominal pain, hematemesis, melena, or hematochezia. SKIN: Denies abnormal lesions or rashes. CENTRAL NERVOUS SYSTEM: No dizziness, headache, diplopia or syncopal episodes. Remaining systems were reviewed with the patient, they were noted all negative. PAST MEDICAL HISTORY: 1. Known with history of congestive heart failure with mild systolic dysfunction. 2. Coronary artery disease. 3. Aortic stenosis with status post repair. 4. Peptic ulcer disease. 5. Generalized anxiety disorder. 6. Permanent atrial fibrillation as well. 7. Abdominal aortic aneurysm history. 8. Cancer of the vocal cord. 9. Gastroesophageal reflux. 10. Coronary artery disease. [place], [place] REPORT OF CONSULTATION NAME: MARLY PRATT UNIT #: [id number] ROOM: [facility] DOCTOR: DEBORAH HERNANDEZ MDULAM BIRTHDATE: [birth year] 11. Essential hypertension. 12. Posttraumatic stress disorder. 13. Obstructive sleep apnea disorder. 14. Chronic hypoxic respiratory failure with use of oxygen. 15. History of bronchial asthma. PAST SURGICAL HISTORY: 1. Appendectomy. 2. Cholecystectomy. 3. Left hip replacement. 4. Vocal cord surgery for the cancer. 5. Exploratory laparotomy that was done twice. 6. Transcutaneous aortic valve replacement in 2018. SOCIAL HISTORY: The patient lives at home. Denies history of alcohol use, illicit drug use. He denies any tobacco use. The patient used to drink alcohol in a form of beer, which has been discontinued years ago. FAMILY HISTORY: The patient's father at the age of 6464 years old from complication of myocardial infarction. Mother with natural causes. HOME MEDICATIONS: Listed as Tylenol, Ventolin HFA, Symbicort, digoxin, folic acid, gabapentin, Mucinex, Combivent, Lopressor, Singulair, pramipexole, Protonix, tramadol, and Coumadin. DRUG ALLERGIES: REPORTED ALLERGIES TO: 1. ADENOSINE. 2. EFFEXOR. 3. IVP DYE. 4. SIMVASTATIN. CURRENT MEDICATIONS: Administered actively, the patient noted digoxin, folic acid, Protonix, Eliquis 5 mg b.i.d., trazodone, gabapentin, Requip, Singulair, Pulmicort Respules, albuterol sulfate, metoprolol tartrate, aspirin, DuoNeb p.r.n. use and some other meds. PHYSICAL EXAMINATION: GENERAL: This is an 88-year-old male patient, who has been noted currently awake and alert this morning of assessment. Height of 6 feet 2 inches, weight of 256 and BMI of 32.8. VITAL SIGNS: Low-grade fever noted 100 degrees Fahrenheit at noon and yesterday rectal temperature of 101 degrees Fahrenheit. Respiratory rate ranged between 12-20. Heart rate 77-108, blood pressure 124/68-130/74. The pulse oxygen saturation was recorded as 98% saturation on 4 liters nasal cannula. HEENT: Examination shows head was atraumatic. Eyes nonicterus. NECK: Supple. CARDIOVASCULAR: S1, S2 is audible. LUNGS: The patient was noted with decreased breaths in the lungs bilaterally. There was no wheezing or crackles heard. ABDOMEN: Soft, obese, nontender. Bowel sounds present. [place], [place] REPORT OF CONSULTATION NAME: MARLY PRATT UNIT #: [id number] ROOM: [facility] DOCTOR: BILLY ALONSO MD,HARINDER BIRTHDATE: [birth year] EXTREMITIES: The patient was noted with mild edema. MUSCULOSKELETAL: Without acute deformities. CENTRAL NERVOUS SYSTEM: The patient's cranial nerves 2-12 intact. LABORATORY DATA: CBC that was done on 07/28/2018, WBC count 4.2, hemoglobin 13.1, platelet count 88,000. PT/PTT was noted as INR 1.6, PTT 31. The recent admission the patient signed against medical advice. CBC at that time on 07/23/2018, WBC count 4.3 and platelet count 66,000 at that time. The troponin were noted minimally elevated 0.169. CMP of the patient on 07/28/2018, normal BUN and creatinine. Glucose 185. CO2 of 34. Arterial blood gas that was done yesterday morning on 4 liters, pH of 7.39, pCO2 of 53, pO2 66.6. Blood culture for the past admission on 07/23/2018, showed no bacterial growth. CBC on 07/23/2018, WBC count 4.7, hematocrit 11.1, and platelet count was 78,000. BMP this morning, normal BUN and creatinine. CO2 was 36. IMPRESSION: 1. The patient will be currently admitted to the hospital with the current acute onset what appeared like hemoptysis, but clotted blood, not noted as active bleeding. 2. History of permanent atrial fibrillation as well on anticoagulation including Eliquis. The differential of the hemoptysis would be considered possibility of pneumonia occult, which was not visible on the current chest x-ray with other etiology to be considered as hemoptysis related to current anticoagulation as well. 3. Mildly elevated troponin on admission, significance of that was unknown. 4. The patient with a history of aortic valve pacemaker. 5. Chronic metabolic alkalosis secondary to hypercarbia. 6. Acute chronic hypercapnic respiratory failure. 7. Acute on chronic hypoxemic respiratory failure because of increased oxygen requirement and his baseline as well. 8. Low-grade fever, rule out any acute infection as well including pneumonia, urinary tract infection and others. 9. History of bronchial asthma. The patient does not have any acute exacerbation at this time. 10. Chronic moderate obesity. Multiple other medical illnesses, this patient remains unchanged. PLAN OF TREATMENT: The patient has been ordered CT of the chest with . The patient will be given hydrocortisone and Benadryl. CT of the chest will be done. This would also help to assess any occult pneumonia. After the CT of the chest if there is any pneumonia present certainly, patient will be ordered antibiotics. At this time, the patient was not showing any signs of acute severe sepsis, holding of the antibiotic would be appropriate if necessary. Bronchodilators to be continued. Sputum for Gram stain culture was ordered as well. Other additional treatment changes will be ordered based on the progression of his illness. In case of worsening of the respiratory failure, if it occurred certainly, patient will be started on the BiPAP afterwards. Usual care, other therapy, plan of management. Additional treatment changes, continue to recommend the patient based on the progression of the clinical course. [place], [place] REPORT OF CONSULTATION NAME: MARLY PRATT UNIT #: [id number] ROOM: [facility] DOCTOR: HARINDER HERNANDEZ MD BIRTHDATE: [birth year] Thanks for allowing me to participate in the care of this patient. HARINDER CERVANTES MD CM:CONSTR:REPORT OF CONSULTATION 1526 07/30/18 0233 interface
--- NOTE | ~2018-07-27 | EKG ---
[place], [place] ELECTROCARDIOGRAM REPORT NAME: MARLY PRATT UNIT #: [id number] ROOM: 407 DOCTOR: ALICE DRAFT REPORT BIRTHDATE: [birth year] [facility] Test Date: 2018-07-28 Test Time: 00:43:21 Pat Name: MARLY PRATT Department: Room: 407 Gender: M Autism Specialist: Ruben Rob : 1930 Requested By: SHEMAR GARCIA Order Number: [id number] Reading MD: Davina Edwards Measurements Intervals [place] Rate: 105 P: [place]: QRS: -54 QRSD: 116 T: 111 QT: 350 QTc: 463 Interpretive Statements Atrial fibrillation with RVR Incomplete left bundle branch block Inferior infarct, old Consider anterior infarct Compared to ECG 07/24/2018 01:29:57 Left ventricular hypertrophy no longer present Early repolarization no longer present Myocardial infarct finding still present Electronically Signed On 08-01-2018 12:57:19 PDT by Davina Edwards CM:EKGRPT:ELECTROCARDIOGRAM REPORT [id number] SHEMAR KING DRAFT REPORT SHEMAR GARCIA DO
--- NOTE | ~2018-07-27 | PR ---
[place], [place] PROGRESS NOTE NAME: MARLY PRATT UNIT #: [id number] ROOM: 407 DOCTOR: HARINDER HERNANDEZ MD BIRTHDATE: [birth year] DOS: 08/03/2018 PULMONARY PROGRESS NOTE SUBJECTIVE: The patient noted comfortable at this time without any acute distress, resting comfortably, reported gradual reduction and improvement of respiratory symptom. Denies symptoms of fever or chills. Denies symptoms of coughing or any sputum expectoration. In general, the patient was noted with continued improvement in the respiratory status at the present time. The patient was independently seen and examined in oubu-mr-ejtq encounter, history was confirmed. Physical examination performed. Labs were reviewed. Assessment and management for today was personally completed and note done by the director of graduate medical education was approved as well. PHYSICAL EXAMINATION: VITAL SIGNS: For the patient, which are recorded this morning shows the temperature noted as normal. The respiratory rate 20, heart rate 83, blood pressure 150/62. Pulse oxygen saturation recorded as 96% saturation. HEENT: Examination shows head was atraumatic. Eye nonicterus. NECK: Supple. CARDIOVASCULAR: S1, S2 audible. LUNGS: Noted clear to auscultation bilaterally. There was no wheezing at this time. ABDOMEN: Soft, nontender. Bowel sounds present. EXTREMITIES: Without any acute edema. MUSCULOSKELETAL: Without acute deformities. IMPRESSION: 1. The patient with a small pleural fluid with area of atelectasis. 2. Resolving acute exacerbation of chronic obstructive pulmonary disease, gradually and progressively. PLAN OF TREATMENT: The patient could be considered for home discharge. Continue in the meantime other therapy, plan of management as previously. Usual care, other therapy, plan of management to be continued as previously. [place], [place] PROGRESS NOTE NAME: MARLY PRATT UNIT #: [id number] ROOM: 407 DOCTOR: HARINDER HERNANDEZ MD BIRTHDATE: [birth year] HARINDER CERVANTES MD CM:PNTRANS [phone] HARINDER ALONSO MD 08/04/18 1201 interface
--- NOTE | ~2018-07-27 | PR ---
[place], [place] PROGRESS NOTE NAME: MARLY PRATT UNIT #: [id number] ROOM: 407 DOCTOR: BILLY ALONSO MDHARINDER BIRTHDATE: [birth year] DOS: 08/01/2018 PULMONARY PROGRESS NOTE SUBJECTIVE: The patient was independently seen and examined in [id number]-sm-hfca encounter, history was confirmed. Physical examination performed. Labs were reviewed. Assessment and management for today's note was personally completed. The patient was noted with gradual reduction and improvement in respiratory symptom. Denies symptoms of fever or chills. He is still noted with wheezing as well. Denies symptoms of hemoptysis further at the present time. Denies symptoms of chest pain. The patient was getting Solu-Medrol 40 mg b.i.d. The review of systems otherwise completed negative. OBJECTIVE: VITAL SIGNS: For the patient normal temperature, respiratory rate 18, heart rate of 56, blood pressure 148/66. The pulse oxygen saturation recorded 3 liters nasal cannula 95% saturation. HEENT: Head was atraumatic. Eyes nonicterus. NECK: Supple. CARDIOVASCULAR: S1, S2 is audible. LUNGS: The patient was noted without any crackles. Moderate expiratory wheezing was present. ABDOMEN: Soft, nontender, bowel sounds present. EXTREMITIES: The patient without any acute edema. MUSCULOSKELETAL: Without acute deformities. CENTRAL NERVOUS SYSTEM: Cranial nerves 2-12 intact. LABORATORY DATA: Culture of the sputum noted light growth of yeast. BMP that was done this morning as a normal BUN and creatinine. Glucose mildly elevated, CO2 of 33. CBC this morning, WBC count 5.9, hemoglobin 11.8, hematocrit 34.4, platelet count was 107,000. IMPRESSION: 1. Resolution of the hemoptysis and acute bilateral pneumonia. 2. Acute exacerbation of chronic obstructive pulmonary disease with increased wheezing was noted in the last 24 hours. PLAN OF TREATMENT: Increase the Solu-Medrol dose temporarily to 40 mg q. 8 hours for the next 24 hours. Monitor respiratory symptom, reduction dose afterwards. Obtain a chest x-ray in the morning to reassess the patient for pulmonary infiltration, progression and other illness. Usual care. [place], [place] PROGRESS NOTE NAME: SANTAMARLY Conrad UNIT #: [id number] ROOM: 407 DOCTOR: HARINDER HERNANDEZ MD BIRTHDATE: [birth year] HARINDER CERVANTES MD CM:PNTRANS [phone] HARINDER ALONSO MD 08/02/18 0449 interface
--- NOTE | ~2018-07-27 | PR ---
[place], [place] PROGRESS NOTE NAME: MARLY PRATT [facility] #: [id number] UNIT #: [id number] ROOM: 407 DOCTOR: BILLY ALONSO MD,HARINDER BIRTHDATE: [birth year] DOS: 08/02/2018 PULMONARY PROGRESS NOTE SUBJECTIVE: The patient was independently seen and examined in eksf-yb-gnme encounter, history was confirmed. Labs were reviewed. Note done by the medical staff credentialing coordinator was approved as well. The patient has reported reduction in respiratory symptoms since he was started on steroids. Denies symptoms of fever or chills. Denies coughing with sputum expectoration. Denies symptoms of hemoptysis, nausea, vomiting, diarrhea, abdominal pain, hematemesis, melena, or hematochezia. The patient denies any edema of the lower extremity as well. Remaining systems were reviewed with the patient, they were noted all negative. PHYSICAL EXAMINATION: GENERAL: An 88-year-old white male patient currently resting comfortably, sitting on the bed without any acute distress this morning of assessment. VITAL SIGNS: For the patient normal temperature, respiratory rate 20, heart rate of 59, blood pressure 147/70. Pulse oxygen saturation recorded as 95% saturation on 3 liters nasal cannula. The intake is 1400 mL, output 2930 mL, negative fluid balance 1530 mL. HEENT: Shows head was atraumatic. Eyes nonicterus. NECK: Supple. CARDIOVASCULAR SYSTEM: S1, S2 is audible. LUNGS: The patient was noted without any wheezing this morning. Occasional crackles in the lung bases. ABDOMEN: Soft, nontender, bowel sounds present. EXTREMITIES: The patient without any acute edema. MUSCULOSKELETAL: Without any acute deformities. CENTRAL NERVOUS SYSTEM: Intact. LABORATORY DATA: Chest x-ray done yesterday was reviewed and noted with small pleural fluid on the left side with area of atelectasis. IMPRESSION AND PLAN: 1. The patient who has been currently noted with acute exacerbation of chronic obstructive pulmonary disease, responded to treatment with reduction of the wheezing. 2. The patient with congestive heart failure as well, noted negative fluid balance. 3. Acute tracheobronchitis. 4. Acute pneumonia, which has been treated with antibiotic. The patient's response to the treatment was noted. Pleural fluid noted small at this time, would not require any acute intervention. The dose of Solu-Medrol will be decreased for the patient as the patient has been noted reduction and improvement in the respiratory symptoms including wheezing on the physical examination. A new chest x-ray will be obtained for the patient tomorrow to reassess the current left lower lobe problem. [place], [place] PROGRESS NOTE NAME: MARLY PRATT UNIT #: [id number] ROOM: [facility] DOCTOR: HARINDER HERNANDEZ MD BIRTHDATE: [birth year] HARINDER CERVANTES MD CM:PNTRANS [id number] HARINDER ALONSO MD 08/02/18 2358 interface
--- NOTE | ~2018-07-27 | PR ---
[place], [place] PROGRESS NOTE NAME: MARLY PRATT [facility] #: [id number] UNIT #: [id number] ROOM: 407 DOCTOR: BILLY ALONSO MD,HARINDER BIRTHDATE: [birth year] DOS: 07/30/2018 PULMONARY PROGRESS NOTE SUBJECTIVE: The patient has been noted comfortable this morning in the Intensive Care Unit this morning of assessment. Denies symptoms of fever or chills. He has been noted with a small hemoptysis once or twice at this time without any progression. CTA of the chest was completed yesterday that excluded evidence of pulmonary embolism. He denies symptoms of fever or chills. General weakness and fatigue were noted. Also noted mild edema of the lower extremities as well. Denies symptoms of headache, diplopia, nausea, vomiting, diarrhea, or any abdominal pain. Remaining systems were reviewed, they were noted all negative. OBJECTIVE: VITAL SIGNS: Which were recorded showed the temperature noted as normal - previous temperature noted 100 degrees Fahrenheit, respiratory rate 17-18, heart rate of 92-101, blood pressure 137/82-133/82. The pulse oxygen saturation recorded on three liters nasal cannula as 94% saturation. HEENT: Head is atraumatic. Eyes nonicterus. NECK: Supple. CARDIOVASCULAR: S1 and S2 audible. LUNGS: Scattered crackles. No wheezing. ABDOMEN: Soft, obese, nontender. EXTREMITIES: Noted 1+ pitting edema. MUSCULOSKELETAL: Without any acute deformities. CENTRAL NERVOUS SYSTEM: Cranial nerves 2 through 12 intact. LABORATORY DATA: Culture of the sputum was pending. Gram stain from yesterday - many white blood cells, moderate epithelial cells, moderate Gram-positive cocci in pairs and clusters, a few Gram-negative bacilli, budding yeast and other organisms were also seen. CBC this morning - WBC count 3.9, hemoglobin 10.6, [place] [address]. CMP that was done this morning - BUN 14, creatinine normal, glucose 139, CO2 of 33. DIAGNOSTIC DATA: CTA of the chest reveals no pulmonary embolism. Patchy area of infiltration present in the lungs bilaterally, involving all the lobes as well. There were no pleural effusions. IMPRESSION: The patient who has been currently noted with: 1. Bilateral acute pneumonia with small sputum expectoration, which was noted as clotted blood, patel sputum. 2. The patient with chronic obesity as well. 3. Peripheral edema as well. 4. Pancytopenia is also seen. 5. Atrial fibrillation by history as well. PLAN OF MANAGEMENT: Continue diuretics, bronchodilators, oxygen supplementation, antibiotics that were started yesterday. Sputum culture was taken. The patient was also ordered the blood cultures as well, which was done [place], [place] PROGRESS NOTE NAME: MARLY PRATT UNIT #: [id number] ROOM: 407 DOCTOR: BILLY ALONSO MD,HARINDER BIRTHDATE: [birth year] yesterday. Monitor respiratory status. We would not stop the anticoagulation at this time as the patient is not noted with active hemoptysis. Other therapy plan of management, monitor clinical course, and further change in treatment will be suggested accordingly. HARINDER CERVANTES MD CM:PNTRANS [id number] HARINDER ALONSO MD 08/14/18 0809 interface
--- NOTE | ~2018-07-27 | PR ---
[place], [place] PROGRESS NOTE NAME: MARLY PRATT UNIT #: [id number] ROOM: 407 DOCTOR: ARNULFO MEHTA DO BIRTHDATE: [birth year] DOS: 08/01/2018 PULMONARY PROGRESS NOTE SUBJECTIVE: The patient states that he woke up at 5:00 a.m. with shortness of breath second day in a row. The patient denies any fevers or chills. The patient has not had any hemoptysis. The patient states that he feels like he is wheezing a little bit. Otherwise, the patient states that he feels pretty well today. OBJECTIVE: VITAL SIGNS: The patient's temperature is 97.4, pulse is 84, respiratory rate 20, blood pressure 132/69, patient is 96% on 3 liters by nasal cannula. HEENT: Normocephalic, atraumatic. Eyes nonicteric. NECK: Supple, nontender, trachea midline. CARDIOVASCULAR: S1, S2 audible. LUNGS: Scattered crackles throughout, bilateral expiratory wheezes. ABDOMEN: Soft, obese, nontender. EXTREMITIES: 1+ pitting edema left lower extremity, trace edema right lower extremity. MUSCULOSKELETAL: Without any acute deformities. CENTRAL NERVOUS SYSTEM: Cranial nerves 2-12 grossly intact. No focal neurologic deficits. ASSESSMENT: 1. Bilateral healthcare-associated pneumonia. 2. Peripheral edema. 3. Pancytopenia. 4. Atrial fibrillation. 5. Hemoptysis/blood-tinged sputum, stable. PLAN: Continue bronchodilators, oxygen supplementation, ceftriaxone and Levaquin. The patient will be given another one-time dose of Lasix IV 60 mg. The patient's fluid status will be reassessed tomorrow. We will start Solu-Medrol at 40 mg t.i.d. due to wheezing today. Any other changes will be based on progression of illness. Thank you for allowing us to participate in his care. Rajat Mehta DO [place], [place] PROGRESS NOTE NAME: MARLY PRATT UNIT #: [id number] ROOM: 407 DOCTOR: ARNULFO MEHTA DO BIRTHDATE: [birth year] HARINDER CERVANTES MD CM:PHILIP [phone] ARNULFO MEHTA DO 08/14/18 0810 interface
--- NOTE | ~2018-07-27 | PR ---
[place], [place] PROGRESS NOTE NAME: MARLY PRATT UNIT #: [id number] ROOM: 407 DOCTOR: ARNULFO MEHTA DO BIRTHDATE: [birth year] DOS: 07/31/2018 PULMONARY PROGRESS NOTE SUBJECTIVE: The patient states that he is more comfortable this morning. The patient denies any fevers or chills. The patient states that he has not had any hemoptysis overnight. CAT scan showed signs of pneumonia yesterday, which can account for these symptoms. The patient denies any other problems. The patient's left lower extremity edema is more significant than the right. OBJECTIVE: VITAL SIGNS: Temperature 98.3, pulse rate 90, respiratory rate 22, patient's blood pressure is 135/81, pulse ox 97% on 3 liters. HEENT: Normocephalic, atraumatic. Eyes nonicteric. NECK: Supple, nontender, trachea midline. CARDIOVASCULAR: S1, S2 audible. LUNGS: Scattered crackles throughout. ABDOMEN: Soft, obese, nontender. EXTREMITIES: 1+ pitting edema left lower extremity, trace edema right lower extremity. MUSCULOSKELETAL: Without acute deformities. CENTRAL NERVOUS SYSTEM: Cranial nerves 2-12 grossly intact. No acute focal deficits. LABORATORY DATA: CBC: White cell count 4.6, hemoglobin 11.5, hematocrit 35.7, platelet count is 93. Chemistry: Sodium 142, potassium 3.8, chloride 105, bicarbonate 29, BUN 11, creatinine 0.69, calcium is 8.4. MICROBIOLOGY: Blood cultures, no growth to date. Sputum culture, no growth to date. IMAGING: CTA chest showed extensive bilateral pneumonia. IMPRESSION: 1. Bilateral pneumonia, hospital-associated/healthcare-associated pneumonia. 2. Peripheral edema. 3. Pancytopenia. 4. Atrial fibrillation. 5. Hemoptysis or blood-tinged sputum, stable. PLAN: Continue diuretics, bronchodilators, oxygen supplementation and ceftriaxone and Levaquin. Continue to monitor respiratory status. Any other changes will be based on progression of illness. Rajat Mehta DO [place], [place] PROGRESS NOTE NAME: MARLY PRATT UNIT #: [id number] ROOM: [facility] DOCTOR: ARNULFO MEHTA DO BIRTHDATE: [birth year] HARINDER CERVANTES MD CM:PHILIP [phone] ARNULFO MEHTA DO 08/01/18 0548 interface
[~2018-07-27 21:39] MED LIST changes: +AVPAK AZITHROM250 MG PO; +COUMADIN5 M2 PO; +COUMADIN6 M2 PO; +DIGOXIN250 MCG PO; +LOPRESSOR50 M1 PO; +METOPROLOL TART50 M1 PO; +MUCUS RELIEF C400 MG PO; +PROTONIX20 MG PO; +ULTRAM50 MG PO
[2018-07-27 21:42] VITALS: BP 121/68
[2018-07-27 22:12] LABS: HEMATOCRIT 38.6 % (42.0-52.0); HEMOGLOBIN 12.2 g/dl (14.0-18.0); MEAN CELL VOLUME 100.3 fl (80.0-94.0); MEAN CORPUSCULAR HGB 31.7 pg (27.0-31.0); MEAN CORPUSCULAR HGB CONC 31.6 g/dl (33.0-37.0); MEAN PLATELET VOLUME 9.3 fl (9.6-12.3); PLATELET COUNT AUTOMATED 85 10*3/uL (130-400); RED BLOOD COUNT 3.85 10*6/uL (4.50-5.90); RED CELL DISTRI WIDTH 12.7 % (0-14.5); WHITE BLOOD COUNT 3.4 10*3/uL (4.8-10.8)
[2018-07-27 22:30] LABS: ACT PARTIAL THROMBO TIME 30.2 SECONDS (20.0-32.1); ALBUMIN 3.2 gm/dl (3.1-4.5); ALKALINE PHOSPHATASE 84 U/L (45-117); BUN 13 mg/dl (7-24); CHLORIDE 103 mmol/L (98-107); CREATININE 0.93 mg/dL (0.70-1.30); INTERNATIONAL NORM RATIO 1.6 (2.0-3.5); POTASSIUM 4.1 mmol/L (3.5-5.1); SGOT/AST 18 IU/L (3-35); SGPT/ALT 28 U/L (12-78); SODIUM 142 mmol/L (136-145)
[2018-07-27 22:37] LABS: TROPONIN I 0.046 ng/ml (<0.045)
--- NOTE | 2018-07-27 22:37 | NUR ---
TROPONIN 0.046, DR GARCIA AWARE
[2018-07-27 22:45] LABS: BASOPHILS 1 % (0-1); TOTAL CELLS COUNTED 100 #CELLS
[2018-07-27 22:46] LABS: PLATELET SUFFICIENCY LOW (NORMAL)
[2018-07-28 01:00] VITALS: BP 147/98
--- NOTE | 2018-07-28 01:00 | NUR ---
Time: 99 A 88 year old MALE admitted to 4E under services of ANGI GRANADOS DO. Pt. arrived via stretcher from ER. Chief complaint: CHF, CHEST PAIN, AFIB. LAKSHMI NUNEZ
--- NOTE | 2018-07-28 01:39 | NUR ---
NOTIFIED PHYSICIAN OF TROP 0.169. NO NEW ORDERS RECEIVED.
[2018-07-28 03:39] LABS: BASO % 0.2 % (0.0-1.0); EOS # 0.1 10*3/uL (0.0-0.4); EOS % 1.4 % (1.0-4.0); HEMATOCRIT 40.9 % (42.0-52.0); HEMOGLOBIN 13.1 g/dl (14.0-18.0); LYMPH # 0.6 10*3/uL (1.3-4.4); LYMPH % 14.7 % (27.0-41.0); MEAN CELL VOLUME 99.8 fl (80.0-94.0); MEAN PLATELET VOLUME 8.7 fl (9.6-12.3); MONO # 0.2 10*3/uL (0.1-1.0); MONO % 5.7 % (3.0-9.0); NEUT # 3.2 10*3/uL (2.3-7.9); NEUT % 76.1 % (47.0-73.0); PLATELET COUNT AUTOMATED 88 10*3/uL (130-400); RED CELL DISTRI WIDTH 12.7 % (0-14.5); WHITE BLOOD COUNT 4.2 10*3/uL (4.8-10.8)
[2018-07-28 03:52] LABS: INTERNATIONAL NORM RATIO 1.6 (2.0-3.5)
[2018-07-28 03:58] LABS: ALBUMIN 3.5 gm/dl (3.1-4.5); ALKALINE PHOSPHATASE 72 U/L (45-117); BUN 12 mg/dl (7-24); CHLORIDE 101 mmol/L (98-107); CREATININE 0.84 mg/dL (0.70-1.30); PHOSPHOROUS 2.5 mg/dL (2.5-4.9); POTASSIUM 4.6 mmol/L (3.5-5.1); SGOT/AST 12 IU/L (3-35); SGPT/ALT 27 U/L (12-78); SODIUM 140 mmol/L (136-145); TOTAL PROTEIN 6.4 gm/dL (6.4-8.2)
--- NOTE | 2018-07-28 03:58 | NUR ---
DR TEAGUE NOTIFIED OF ELEVATED TROPONIN.
[2018-07-28 04:08] LABS: DIGOXIN 0.77 ng/ml (0.8-2.0)
--- NOTE | 2018-07-28 04:30 | NUR ---
DR TEAGUE NOTIFIED OF CHANGE IN MENTATION, AGITATION AND IRREGULAR BREATHING. TRAZADONE ORDERED.
--- NOTE | 2018-07-28 06:44 | NUR ---
CARDIOLOGY ANSWERING SERVICE NOTIFIED OF NEW CONSULT
--- NOTE | 2018-07-28 07:11 | NUR ---
NOTIFIED DR. TAYLOR OF CRITICAL LAB VALUE.
[2018-07-28 07:12] LABS: ABG BASE EXCESS 6.1 mmol/L (-2.0-2.0); ABG HCO3 31.4 mmol/l (22-26); ARTERIAL BLOOD GAS PCO2 53.6 mmHg (35-45); ARTERIAL BLOOD GAS PH 7.392 (7.35-7.45); ARTERIAL BLOOD GAS PO2 66.6 mmHg (80-90)
--- NOTE | 2018-07-28 07:40 | NUR ---
spoke with dr. bailey in ref. to pt status. resp. labored, pt is unresponsive to stimuli. eyes glazed and rolled back. .
--- NOTE | 2018-07-28 07:50 | NUR ---
PATIENT TRANSFERRED FROM . LETHARGIC. ALERT AND ORIENTED X2 WHEN AROUSED AFTER MUCH ENCOURAGEMENT. AF PER CM-RATE LOW 100'S. BLOOD PRESSURE 135/81. O2 4LNC POX 92%. LUNGS CLEAR. HL DYLAN. 1+ EDEMA L>R. TYLENOL GIVEN PER PRN ORDER. WILL CONTINUE TO MONITOR.
[2018-07-28 08:00] VITALS: BP 135/81
--- NOTE | 2018-07-28 08:05 | NUR ---
Pt placed on a 6L SFM. Pt was on a 4L NC with an SpO2 of 95%. Explained to Dr. Noonan my concerns on why patient shouldnt be on a SFM and I was to leave the mask on anyways. Will monitor patients drowsiness and CO2.
--- NOTE | 2018-07-28 08:15 | NUR ---
PATIENT STRAIGHT CATHED TO OBTAIN URINE SPECIMENS. 200CC CLEAR STRAW URINE OBTAINED.
[2018-07-28 09:10] LABS: BILIRUBIN NEGATIVE (NEGATIVE); BLOOD NEGATIVE (NEGATIVE); CLARITY CLEAR (CLEAR); COLOR YELLOW (YELLOW); GLUCOSE NEGATIVE (NEGATIVE); KETONE NEGATIVE (NEGATIVE); LEUKO ESTERASE NEGATIVE (NEGATIVE); NITRITE NEGATIVE (NEGATIVE); SPECIFIC GRAVITY 1.015 (1.005-1.030)
[2018-07-28] MEDS ORDERED: NEURONTIN100 MG PO (09:16)
[2018-07-28] MEDS ORDERED: ACETAMINOPHEN325 M2 PO (09:17)
[2018-07-28 09:45] LABS: BACTERIA 1+; MUCOUS 1+
--- NOTE | 2018-07-28 11:18 | NUR ---
NOTIFIED OF NEW CONSULT ORDER. NO NEW ORDERS RECEIVED.
[2018-07-28 12:00] VITALS: BP 124/68
[2018-07-28] MEDS ORDERED: TRAZODONE150 MG PO (12:29)
[2018-07-28] MEDS ORDERED: ELIQUIS5 M1 PO (12:30)
[2018-07-28 16:00] VITALS: BP 118/60
--- NOTE | 2018-07-28 18:00 | NUR ---
PATIENT MEDICATED WITH ULTRAM FOR C/O GENERALIZED BODY PAIN 07/13. WILL MONITOR
[2018-07-28 20:00] VITALS: BP 126/81
--- NOTE | 2018-07-28 21:38 | NUR ---
PATIENT PROVIDED WITH BOX LUNCH PER REQUEST, PATIENT STATES THAT HE DID NOT GET TO ORDER DINNER TODAY AND IS HUNGRY. PATIENT ADJUSTED TO SIT UP IN BED AND PROCEEDED TO EAT WITHOUT DIFFUCULTY. DENIES OTHER COMPLAINTS AT THIS TIME. RN WILL CONTINUE TO MONITOR
--- NOTE | 2018-07-28 23:55 | NUR ---
PATIENT RESTING IN BED WITH EYES CLOSED AT THIS TIME. RESPIRATIONS ARE QUIET AND UNLABORED ON 4 LITERS NASAL CANNULA. NO SIGNS OR SYMPTOMS OF DISTRESS SEEN. BED ALARM WAS APPLIED FOR PATIENT SAFETY. CALL LIGHT WITHIN REACH. RN WILL CONTINUE TO MONITOR
[2018-07-29] VITALS (7 sets, daily range): BP systolic 105–137; BP diastolic 63–82
[2018-07-29 05:55] LABS: BUN 11 mg/dl (7-24); CHLORIDE 102 mmol/L (98-107); CREATININE 0.75 mg/dL (0.70-1.30); POTASSIUM 4.6 mmol/L (3.5-5.1); SODIUM 143 mmol/L (136-145)
[2018-07-29 06:14] LABS: BASO % 0.4 % (0.0-1.0); EOS # 0.1 10*3/uL (0.0-0.4); EOS % 1.7 % (1.0-4.0); HEMOGLOBIN 11.1 g/dl (14.0-18.0); LYMPH # 0.6 10*3/uL (1.3-4.4); MEAN CELL VOLUME 102.1 fl (80.0-94.0); MEAN CORPUSCULAR HGB 32.6 pg (27.0-31.0); MEAN PLATELET VOLUME 9.8 fl (9.6-12.3); MONO # 0.4 10*3/uL (0.1-1.0); MONO % 7.6 % (3.0-9.0); NEUT # 3.6 10*3/uL (2.3-7.9); NUCLEATED RED BLOOD CELL 0.4 % (0.0-0.0); PLATELET COUNT AUTOMATED 78 10*3/uL (130-400); RED CELL DISTRI WIDTH 13.1 % (0-14.5); WHITE BLOOD COUNT 4.7 10*3/uL (4.8-10.8)
[2018-07-29 06:16] LABS: HEMATOCRIT 34.7 % (42.0-52.0)
--- NOTE | 2018-07-29 06:43 | NUR ---
PATIENT MEDICATED WITH MORPHINE PER DRS ORDERS FOR COMPLAINTS OF BACK PAIN. 6 OUT OF 10. RN WILL CONTINUE TO MONITOR. PATIENT PROVIDED PHONE TO ORDER BREAKFAST
--- NOTE | 2018-07-29 07:07 | NUR ---
PATIENT MEDICATED WITH ATIVAN PER DRS ORDERS FOR AGITATION AND SCREAMING FOR HELP. PATIENT CONFUSED AND CANNOT STAND WHAT HE NEEDS HELP WITH. RN WILL CONTINUE TO MONITOR
--- NOTE | 2018-07-29 09:15 | NUR ---
SITTING ON EDGE OF BED EATING. HEART RATE LOW 100'S A-FIB. PULSE OX 94% ON 4L NASAL CANNULA. LUNGS CLEAR BILATERALLY. NO EDEMA NOTED. TEMP 99.4
--- NOTE | 2018-07-29 09:50 | NUR ---
MEDICATED WITH ULTRAM ORDERED FOR COMPLAINTS OF BACK PAIN. RATES PAIN A 7 ON A PAIN SCALE OF 1-10
--- NOTE | 2018-07-29 10:30 | NUR ---
VOICES THAT ULTRAM WAS EFFECTIVE FOR BACK PAIN
--- NOTE | 2018-07-29 14:48 | NUR ---
DR. CERVANTES NOTIFIED OF PATIENT'S ALLERGY TO CT DYD (CAUSES PATIENT TO STOP BREATHING). HE WISHES TO HAVE URGENT PRE MED DONE WITH SOLUCORTEF AND BENADRYL.
--- NOTE | 2018-07-29 15:40 | NUR ---
TAKEN DOWN TO X-RAY FOR CTA VIA CART. VERY DROWSY FROM IV BENADRYL PRE-MED
--- NOTE | 2018-07-29 17:10 | NUR ---
REMAINS DROWSY. VITALS STABLE. HEART RATE A-FIB 90-100'S.
--- NOTE | 2018-07-29 20:10 | NUR ---
PT. RESTING IN BED WATCHING TV. REMAINS MINIMALLY DROWSY AND SLEEPING INTERMITTENTLY FROM MEDICATION PRIOR TO CT. HEP LOCK IN LW ASYMPT. LUNGS CLEAR BILAT, PULSE OX 96% ON 3.5L NC. ABDOMEN SOFT, NONDISTENDED AND NORMO. TRACE BLE EDEMA. PT. DENIES SOB OR CHEST PAIN AT PRESENT. CARRIE SMITH RN
--- NOTE | 2018-07-29 22:02 | NUR ---
PT. GIVEN RESTORIL AND ULTRAM ORDERED PER PT REQUEST AT 2106. CARRIE SMITH RN
[2018-07-30] VITALS: BP 137/82
--- NOTE | 2018-07-30 00:02 | NUR ---
PT. SLEEPING, RESTORIL AND ULTRAM EFFECTIVE FOR SLEEP AND PAIN. CARRIE SMITH RN
[2018-07-30 03:59] VITALS: BP 133/82
[2018-07-30 05:43] LABS: ACT PARTIAL THROMBO TIME 36.9 SECONDS (20.0-32.1); INTERNATIONAL NORM RATIO 1.3 (2.0-3.5)
[2018-07-30 06:22] LABS: BASO % 0.3 % (0.0-1.0); EOS % 0.8 % (1.0-4.0); HEMATOCRIT 33.5 % (42.0-52.0); HEMOGLOBIN 10.6 g/dl (14.0-18.0); LYMPH # 0.7 10*3/uL (1.3-4.4); LYMPH % 16.5 % (27.0-41.0); MEAN CELL VOLUME 99.4 fl (80.0-94.0); MEAN CORPUSCULAR HGB 31.5 pg (27.0-31.0); MEAN CORPUSCULAR HGB CONC 31.6 g/dl (33.0-37.0); MEAN PLATELET VOLUME 10.1 fl (9.6-12.3); MONO # 0.4 10*3/uL (0.1-1.0); MONO % 8.9 % (3.0-9.0); NEUT # 2.8 10*3/uL (2.3-7.9); NUCLEATED RED BLOOD CELL 0.5 % (0.0-0.0); PLATELET COUNT AUTOMATED 85 10*3/uL (130-400); RED BLOOD COUNT 3.37 10*6/uL (4.50-5.90); RED CELL DISTRI WIDTH 12.9 % (0-14.5); WHITE BLOOD COUNT 3.9 10*3/uL (4.8-10.8)
[2018-07-30 06:23] LABS: ALBUMIN 2.7 gm/dl (3.1-4.5); BUN 14 mg/dl (7-24); CHLORIDE 102 mmol/L (98-107); CREATININE 0.76 mg/dL (0.70-1.30); SGOT/AST 6 IU/L (3-35); SGPT/ALT 17 U/L (12-78); SODIUM 141 mmol/L (136-145)
[2018-07-30 06:24] LABS: ALKALINE PHOSPHATASE 45 U/L (45-117); TOTAL PROTEIN 5.5 gm/dL (6.4-8.2)
[2018-07-30 08:00] VITALS: BP 114/53
[2018-07-30 12:00] VITALS: BP 126/79
[2018-07-30 16:00] VITALS: BP 110/72
[2018-07-30 20:00] VITALS: BP 111/78
--- NOTE | 2018-07-30 20:16 | NUR ---
PT. RESTING IN BED, REMAINS ALERT AND ORIENTED x3. HEP LOCK IN LH. LUNGS DIMINISHED BUT CLEAR BILAT, PULSE OX 98% ON 3L NC. ABDOMEN SOFT, NONDISTENDED AND NORMO. 1+BLE EDEMA NOTED. RESP. EASY AND REG ,NO DISTRESS. PT. DENIES CHEST PAIN, DISCOMFORT OR SOB AT THIS TIME. CARRIE SMITH RN
--- NOTE | 2018-07-30 21:52 | NUR ---
DULCOLAX FOR CONSTIPATION AND RESTORIL FOR INSOMNIA GIVEN PER PT. REQUEST. CARRIE SMITH RN
--- NOTE | 2018-07-30 22:53 | NUR ---
PT. SLEEPING, RESTORIL EFFECTIVE. CARRIE SMITH RN
[2018-07-31] VITALS: BP 135/81
--- NOTE | 2018-07-31 00:30 | NUR ---
PT. MOVED TO 407-1, ALL BELONGINGS WITH PATIENT AND VITALS STABLE. CARRIE SMITH RN
--- NOTE | 2018-07-31 04:40 | NUR ---
24 HR chart check completed.
--- NOTE | 2018-07-31 05:30 | NUR ---
PT AWOKE EASILY FOR AM MED. MOIST NON PRODUCTIVE COUGH NOTED. DYSPNEA W/MINIMAL EXERTION NOTED. PT DENIES PAIN. CALL LIGHT IN REACH.
[2018-07-31 06:37] LABS: HEMATOCRIT 35.7 % (42.0-52.0); HEMOGLOBIN 11.5 g/dl (14.0-18.0); MEAN CELL VOLUME 99.2 fl (80.0-94.0); MEAN CORPUSCULAR HGB 31.9 pg (27.0-31.0); MEAN CORPUSCULAR HGB CONC 32.2 g/dl (33.0-37.0); MEAN PLATELET VOLUME 9.4 fl (9.6-12.3); PLATELET COUNT AUTOMATED 93 10*3/uL (130-400); RED CELL DISTRI WIDTH 12.9 % (0-14.5); WHITE BLOOD COUNT 4.6 10*3/uL (4.8-10.8)
[2018-07-31 06:52] LABS: BUN 11 mg/dl (7-24); CHLORIDE 105 mmol/L (98-107); CREATININE 0.69 mg/dL (0.70-1.30); POTASSIUM 3.8 mmol/L (3.5-5.1); SODIUM 142 mmol/L (136-145)
--- NOTE | 2018-07-31 07:35 | NUR ---
Patient resting quietly with no c/o discomfort. Respirations easy and regular. Vital signs stable. No overt distress. CELESTINO CASTRO
[2018-07-31 07:51] LABS: TOTAL CELLS COUNTED 100 #CELLS
[2018-07-31 07:52] LABS: PLATELET SUFFICIENCY LOW (NORMAL)
[2018-07-31 08:00] VITALS: BP 140/78
--- NOTE | 2018-07-31 08:21 | NUR ---
24 HR/ENTIRE chart check completed.
[2018-07-31 12:00] VITALS: BP 146/88
--- NOTE | 2018-07-31 12:15 | NUR ---
PALLIATIVE CONSULT CALLED IN FOR CALI LAGOS.
--- NOTE | 2018-07-31 12:19 | NUR ---
PATIENT C/O LOW BACK PAIN OF 10/13 HE DESCRIBES PAIN CHRONIC IN NATURE, DULL CONSTANT ACROSS LOW BACK, MEDICATED WITH 75MG OF TRAMADOL ORDERED
--- NOTE | 2018-07-31 12:19 | NUR ---
MARLY PRATT [id number] Please refer to the physician's history and physical for past medical history, comorbid conditions, and allergies. Diagnosis: CHF, ATRIAL FIBRILLATION,CHEST PAIN Tru Score: 16,AT RISK WOUND DESCRIPTIONS: Wound Number 1: Right arm near elbow skin intact. No open areas at time of assessment. Ecchymotic areas noted at time of assessment. Patient stated its all helped up it was when he lowered himself to the floor. Surface the patient is resting on: Isoflex SKIN PREVENTION RECOMMENDATION: 1. Pressure redistribution support surface as appropriate 2. Elevate heels 3. Remove boots/TEDS every shift and reapply 4. Head of bed 30 degrees as tolerated 5. Assess nutrition and hydration 6. Manage moisture 7. Avoid the use of containment devices while in bed 8. Use absorptive products on surfaces limit layers of linens on bed 9. Turn and reposition every 1-2 hours in bed and every 1 hour in chair as tolerated 10. Weight shifts every 15 minutes while up in chair 11. Offloading with pillows or device to keep heels elevated off bed 12. Monitor skin at least every shift 13. Inspect under medical devices twice a day
--- NOTE | 2018-07-31 13:07 | NUR ---
FOLLLOWED UP FOLLOWING TRAMADOL GIVEN FOR PAIN, REPORTS PAIN NOW, 4/10 AND TOLERABLE.
--- NOTE | 2018-07-31 14:50 | NUR ---
REPORT CALLED TO CECILIA LABOY @[facility], SHE VERSED SHE IS FAMILIAR WITH PATIENT. ADVISED PATIENT IS BEING SENT WITH SCRIPTS.
--- NOTE | 2018-07-31 15:41 | NUR ---
Podiatry Professor in to talk to patient. Patient states lives at home with family. There are few steps in the home. Physician: paul [facility]: [facility] Home health services: none Patient's level of ADLs: MINIMAL ASSIST Patient has working utilities: all working DME: [employer], motorized wheelchair Follow-up physician's appointment after d/c: will be made by hospitalist nurse director upon discharge Does patient want to access PORTAL?: mo Discharge plan discussed with patient, patient states he will be going home when able and denies any home needs. MOUNIKA PATEL
[2018-07-31 16:00] VITALS: BP 137/71
--- NOTE | 2018-07-31 16:41 | NUR ---
CALI LAGOS IN TO SEE PT. CODE STATUS CHANGED, DR PIÑA NOTIFIED. CODE SHEET SIGNED. PALLIATIVE CARE TO FOLLOW PT OUTPT.
[2018-07-31 20:00] VITALS: BP 134/88
[2018-08-01] VITALS: BP 132/69
[2018-08-01 06:53] LABS: BUN 10 mg/dl (7-24); CHLORIDE 101 mmol/L (98-107); CREATININE 0.75 mg/dL (0.70-1.30); HEMATOCRIT 34.4 % (42.0-52.0); MEAN CELL VOLUME 99.1 fl (80.0-94.0); MEAN CORPUSCULAR HGB 31.7 pg (27.0-31.0); MEAN PLATELET VOLUME 9.7 fl (9.6-12.3); PLATELET COUNT AUTOMATED 107 10*3/uL (130-400); POTASSIUM 4.1 mmol/L (3.5-5.1); RED BLOOD COUNT 3.47 10*6/uL (4.50-5.90); RED CELL DISTRI WIDTH 13.1 % (0-14.5); SODIUM 139 mmol/L (136-145); WHITE BLOOD COUNT 5.9 10*3/uL (4.8-10.8)
--- NOTE | 2018-08-01 07:45 | NUR ---
Patient resting quietly with no c/o discomfort. Respirations easy and regular. Vital signs stable. No overt distress. NAKUL RODRIGUES
[2018-08-01 08:00] VITALS: BP 140/80; BP 148/66
[2018-08-01 08:15] LABS: TOTAL CELLS COUNTED 100 #CELLS
[2018-08-01 08:16] LABS: PLATELET SUFFICIENCY LOW (NORMAL)
--- NOTE | 2018-08-01 09:00 | NUR ---
case management visits with patient, patient currently has [facility], services will be resumed when patient is medically stable for discharge
[2018-08-01 12:00] VITALS: BP 150/86
--- NOTE | 2018-08-01 12:21 | NUR ---
Patient resting quietly with no c/o discomfort. Respirations easy and regular. Vital signs stable. No overt distress. NAKUL RODRIGUES
--- NOTE | 2018-08-01 14:00 | NUR ---
PHONED IN AND UPDATED ON PT'S CONDITION.
--- NOTE | 2018-08-01 14:30 | NUR ---
Patient resting quietly with no c/o discomfort. Respirations easy and regular CONSIDERING PT'S CHRONIC RESPIRATORY STATUS. Vital signs stable. No overt distress. NAKUL RODRIGUES
[2018-08-01 16:00] VITALS: BP 139/79
--- NOTE | 2018-08-01 19:10 | NUR ---
PT IS SITTING UP ON THE SIDE OF THE BED TALKING ON THE PHONE. THERE DOES NOT APPEAR TO BE ANY S/S OF DISTRESS NOTED ALTHOUGH THE PATIENT DOES SEEM TO HAVE SOME LABORED RESPERATIONS WHICH IS HIS BASELINE. CALL LIGHT WITHIN REACH, WILL CONTINUE TO MONITOR.
--- NOTE | 2018-08-01 19:19 | NUR ---
24 hr chart check complete.
[2018-08-01 20:00] VITALS: BP 175/89
--- NOTE | 2018-08-01 20:01 | NUR ---
PT ADMINISTERED PRN MOM FOR C/O CONSTIPATION. WILL MONITOR FOR EFFECTIVENESS.
[2018-08-02] VITALS: BP 102/44
[2018-08-02 08:00] VITALS: BP 140/70
--- NOTE | 2018-08-02 09:00 | NUR ---
case managment visits with patient, patient will be going home when able and have [facility], no other needs at this time
--- NOTE | 2018-08-02 09:00 | NUR ---
Patient resting quietly with no c/o discomfort. Respirations easy and regular. Vital signs stable. No overt distress. NAKUL RODRIGUES
[2018-08-02 12:00] VITALS: BP 135/82
--- NOTE | 2018-08-02 12:15 | NUR ---
REPEATEDLY HAS CALLED THIS AM AND UPDATED ON PT'S POC AND CONDITION.
[2018-08-02 16:00] VITALS: BP 106/56
--- NOTE | 2018-08-02 16:00 | NUR ---
Patient resting quietly with no c/o discomfort. Respirations easy and regular. Vital signs stable. No overt distress. NAKUL RODRIGUES
--- NOTE | 2018-08-02 19:05 | NUR ---
PT IS AWAKE AND LYING IN BED. HE STATES THAT HE IS NOT EXPERIENCING ANY PAIN OR DISCOMFORT AT THIS TIME. OTHER THAN SOB WHICH IS HIS BASELINE. RESPS ARE NONLABORED. CALL LIGHT WITHIN REACH, WILL CONTINUE TO MONITOR.
[2018-08-02 20:00] VITALS: BP 140/73
[2018-08-03] VITALS: BP 133/73
[2018-08-03 08:00] VITALS: BP 134/74; BP 150/62
--- NOTE | 2018-08-03 09:00 | NUR ---
case management visits with patient, patient states he is being discharged today, case management leonel contact [facility] and notify them that patient is being discharged
--- NOTE | 2018-08-03 11:14 | NUR ---
case management contacted [facility], spoke to Nik, informed her that patient would be discharged today and would need services resumed
[2018-08-03 12:00] VITALS: BP 152/80
[2018-08-03] MEDS ORDERED: PREDNISONE10 MG PO (13:38)
[2018-08-03] MEDS ORDERED: LEVAQUIN750 M1 PO (13:38)
--- NOTE | 2018-08-03 15:03 | NUR ---
Discharge instructions reviewed with patient/family. Patient receptive and verbalizes understanding. Follow-up care arranged. Written instructions given to patient/family. HEPLOCK DISCONTINUED. TIRE BUFFER REMOVED. PATIENT TAKEN OFF FLOOR BY WHEELCHAIR. DARBY HERNANDEZ
[2018-08-09] MEDS ORDERED: METOPROLOL TAR100 M1 PO (08:29)
[2018-08-09] MEDS ORDERED: LASIX20 MG PO (08:30)
== END 2018-08-03 15:03 | disposition home or self-care (01) | DRG 871 ==
LOC: ED 21:39 → 4E 23:33 → EDHOLD 23:33 → 4E 07-28 00:07 → ICCU 07-28 08:00 → 4E 07-31 00:25
PROVIDERS: Emergency Medicine; Family Medicine; ADMIT Internal Medicine
DX: A41.9 Sepsis, unspecified organism (principal); J18.9 Pneumonia, unspecified organism; I21.A1 Myocardial infarction type 2; J96.22 Acute and chronic respiratory failure with hypercapnia; J96.21 Acute and chronic respiratory failure with hypoxia; D61.818 Other pancytopenia; I50.42 Chronic combined systolic (congestive) and diastolic (congestive) heart failure; J98.11 Atelectasis; J44.1 Chronic obstructive pulmonary disease with (acute) exacerbation; J44.0 Chronic obstructive pulmonary disease with (acute) lower respiratory infection; R04.2 Hemoptysis; E87.3 Alkalosis; R79.89 Other specified abnormal findings of blood chemistry; R79.1 Abnormal coagulation profile; I11.0 Hypertensive heart disease with heart failure; K21.9 Gastro-esophageal reflux disease without esophagitis; F41.1 Generalized anxiety disorder; I48.2 Chronic atrial fibrillation; J20.9 Acute bronchitis, unspecified; M54.9 Dorsalgia, unspecified; I35.0 Nonrheumatic aortic (valve) stenosis; G89.29 Other chronic pain; Z96.642 Presence of left artificial hip joint; Z96.651 Presence of right artificial knee joint; Z66 Do not resuscitate; Z51.5 Encounter for palliative care; F32.9 Major depressive disorder, single episode, unspecified; M48.00 Spinal stenosis, site unspecified; I73.9 Peripheral vascular disease, unspecified; E66.9 Obesity, unspecified; G47.30 Sleep apnea, unspecified; I25.10 Atherosclerotic heart disease of native coronary artery without angina pectoris; F43.10 Post-traumatic stress disorder, unspecified; Z99.81 Dependence on supplemental oxygen; Z88.8 Allergy status to other drugs, medicaments and biological substances; Z91.041 Radiographic dye allergy status; Z86.718 Personal history of other venous thrombosis and embolism; Z85.21 Personal history of malignant neoplasm of larynx; I25.2 Old myocardial infarction; Z87.01 Personal history of pneumonia (recurrent); Z90.49 Acquired absence of other specified parts of digestive tract; Z82.49 Family history of ischemic heart disease and other diseases of the circulatory system; Z83.79 Family history of other diseases of the digestive system; Z81.2 Family history of tobacco abuse and dependence; Z82.5 Family history of asthma and other chronic lower respiratory diseases; Z80.8 Family history of malignant neoplasm of other organs or systems; Z79.899 Other long term (current) drug therapy; Z87.11 Personal history of peptic ulcer disease; Z95.2 Presence of prosthetic heart valve; Z68.32 Body mass index [BMI] 32.0-32.9, adult

== ENCOUNTER 2018-09-29 19:43 | Inpatient (IN) | payer OTHER, MEDICARE ==
[~2018-09-29] VITALS: Ht 172.7 cm; Wt 90.7 kg
--- NOTE | ~2018-09-29 | EKG ---
[place], [place] ELECTROCARDIOGRAM REPORT NAME: MARLY PRATT UNIT #: [id number] ROOM: 528 DOCTOR: ALICE DRAFT REPORT BIRTHDATE: [birth year] [facility] Test Date: 2018-09-29 Test Time: 19:44:32 Pat Name: MARLY PRATT Department: Room: 528 Gender: M Shirt Cleaner: Johanna Sanford : 1930 Requested By: KEYONNA RIGGS Order Number: [id number] Reading MD: Davina Edwards Measurements Intervals [place] Rate: 89 P: IN: QRS: -61 QRSD: 122 T: 95 QT: 366 QTc: 446 Interpretive Statements Atrial fibrillation Occ PVCs Left bundle branch block Compared to ECG 08/07/2018 17:44:52 Ventricular premature complex(es) no longer present Left ventricular hypertrophy no longer present Early repolarization no longer present Electronically Signed On 09-30-2018 9:07:17 PDT by Davina Edwards CM:EKGRPT:ELECTROCARDIOGRAM REPORT [id number] KEYONNA JENKINS DRAFT REPORT KEYONNA RIGGS MD
--- NOTE | ~2018-09-29 | PROC NOTE ---
[place], [place] PROCEDURE NOTE NAME: MARLY PRATT [facility] #: [id number] UNIT #: [id number] ROOM: 528 DOCTOR: ARUN DONOVAN BIRTHDATE: [birth year] DOS: MODIFIED BARIUM SWALLOW PAST MEDICAL HISTORY: The patient was admitted to the ER and with admittance to the hospital for mild patchy airspace disease in the right base of the lungs, which cannot exclude pneumonia. The patient was placed on nectar liquids and a soft diet due to reports of globus in the pharynx as well as severe coughing and choking with thin liquids. 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 He was not able to specify specifically, but reported it was in 2018 and then he had extensive radiation to the laryngeal area. Larynx upon palpitation is very hard suspected due to radiation with loss of tissue elasticity. The patient does report he has been coughing and choking on thin liquids and has a feeling of globus or food sticking in his throat. METHODS AND MATERIALS: The patient was seated upright in a wheelchair. He is able to follow basic commands. The patient's voice is rated as strangled to glottal harris, which is reported to have occurred after his radiation to the laryngeal area. The patient has an upper denture. He has fixed teeth on the bottom. He is cognitively intact and able to communicate with his voice being slightly difficult to understand, however, no expressive or receptive language deficits noted. Oral motor within functional limits for tongue and lips for strength, range of motion and coordination. The patient was able to administer thin liquid via straw in single and sequential sips by himself, a piece of turkey coated with barium and a teaspoon of applesauce coated with barium. He was only given thin liquid consistency. A bite of a turkey sandwich and applesauce for this modified barium swallow. ORAL PHASE: The patient presents with mildly reduced ability to propel a bolus anterior to posterior, especially with the thicker consistency was noted to fall slowly over the base of the tongue into the vallecula where a swallow was triggered in a timely fashion less than 2 seconds on all consistencies. There was a very mild tongue base residue; however, he cleared with sequential swallows and no pocketing in the oral cavity. Overall, oral phase is functional with mildly reduced timing suspected due to weak tongue base, strength and ability to propel a bolus. PHARYNGEAL PHASE: The patient demonstrated adequate laryngeal elevation, no pharyngeal residue and he demonstrated one instance of a moderate amount of laryngeal penetration; however, completely clear. There was no residue or signs and symptoms of barium in the trachea and this can be considered normal as the penetration cleared with laryngeal elevation. The patient demonstrated one severe episode of coughing and choking with wet gurgly sounds; however, he did not penetrate or aspiration when this occurred and physician may wish to consider assessment of the GI tract below the UES or upper esophageal sphincter. RECOMMENDATIONS AND IMPRESSION: Based on the above, patient appears to tolerate [place], [place] PROCEDURE NOTE NAME: MARLY PRATT [place] UNIT #: [id number] ROOM: 528 DOCTOR: ARUN DONOVAN BIRTHDATE: [birth year] thin liquids and small sips with a chin tuck recommended as a precautionary on thin liquids and he is also able to tolerate a regular diet consistency. Speech therapy will follow the patient. We will implement and teach patient a home program for tongue base strengthening to help improve the mild delay and propelling a bolus from anterior to posterior from the oral to pharyngeal phases of the swallowing; however, it does not appear to affect his safety at this time and functionality of the swallow, but when the patient is tired this may be, of concern. Thank you for this referral. ARUN DONOVAN CM:PROCNOTE:PROCEDURE NOTE [id number] ARUN DONOVAN
--- NOTE | ~2018-09-29 | CON ---
[place], [place] REPORT OF CONSULTATION NAME: MARLY PRATT UNIT #: [id number] ROOM: 528 DOCTOR: BILLY ALONSO MD,HARINDER BIRTHDATE: [birth year] DOS: ADDENDUM The patient was asked for consultation, but not seen for this hospitalization. HARINDER CERVANTES MD CM:CONSTR:REPORT OF CONSULTATION 1227 10/16/18 2344 interface
[~2018-09-29 19:43] MED LIST changes: +LASIX20 MG PO; +METOPROLOL TAR100 M1 PO; +NEURONTIN100 MG PO
[2018-09-29 19:49] VITALS: BP 145/79
[2018-09-29 20:29] VITALS: BP 135/71
[2018-09-29 20:29] LABS: BASO % 0.4 % (0.0-1.0); EOS # 0.2 10*3/uL (0.0-0.4); EOS % 2.3 % (1.0-4.0); HEMATOCRIT 37.3 % (42.0-52.0); HEMOGLOBIN 12.1 g/dl (14.0-18.0); LYMPH % 13.2 % (27.0-41.0); MEAN CELL VOLUME 97.1 fl (80.0-94.0); MEAN CORPUSCULAR HGB 31.5 pg (27.0-31.0); MEAN CORPUSCULAR HGB CONC 32.4 g/dl (33.0-37.0); MEAN PLATELET VOLUME 9.6 fl (9.6-12.3); MONO # 0.7 10*3/uL (0.1-1.0); MONO % 9.1 % (3.0-9.0); NEUT # 5.7 10*3/uL (2.3-7.9); NEUT % 74.2 % (47.0-73.0); PLATELET COUNT AUTOMATED 92 10*3/uL (130-400); RED BLOOD COUNT 3.84 10*6/uL (4.50-5.90); RED CELL DISTRI WIDTH 13.1 % (0-14.5); WHITE BLOOD COUNT 7.7 10*3/uL (4.8-10.8)
[2018-09-29 20:40] LABS: ACT PARTIAL THROMBO TIME 30.8 SECONDS (20.0-32.1); INTERNATIONAL NORM RATIO 1.1 (2.0-3.5)
[2018-09-29 20:45] LABS: LIPASE 56 U/L (73-393)
[2018-09-29 20:46] LABS: ALBUMIN 3.2 gm/dl (3.1-4.5); ALKALINE PHOSPHATASE 54 U/L (45-117); BUN 10 mg/dl (7-24); CHLORIDE 98 mmol/L (98-107); CREATININE 0.79 mg/dL (0.70-1.30); POTASSIUM 3.7 mmol/L (3.5-5.1); SGOT/AST 10 IU/L (3-35); SGPT/ALT 16 U/L (12-78); SODIUM 136 mmol/L (136-145); TOTAL PROTEIN 6.3 gm/dL (6.4-8.2); TROPONIN I < 0.015 ng/ml (<0.045)
--- NOTE | 2018-09-29 20:46 | NUR ---
PATIENTS STATES THAT PATIENTS HOSPICE NURSE IS EN ROUTE TO [facility] ED.
[2018-09-29 20:47] LABS: TROPONIN I < 0.015 ng/ml (<0.045)
--- NOTE | 2018-09-29 22:11 | NUR ---
NOTIFIED THAT PATIENT WOULD BE ADMITTED TO IM.
[2018-09-29 22:31] VITALS: BP 142/80
--- NOTE | 2018-09-29 22:57 | NUR ---
LEANN FROM [facility] NOTIFIED THIS RN, THAT [facility] WILL BE ACCEPTING PATIENT FOR ADMISSION.
[2018-09-29 23:20] VITALS: BP 150/82
--- NOTE | 2018-09-29 23:20 | NUR ---
A 88, admitted to , under the services of ANGI Granados DO with a diagnosis of ASPIRATION PNEUMONIA. Chief complaint is WEAKNESS. Patient arrived via stretcher from ER. Monitor applied. Initial assessment completed. Vital signs taken and recorded. ANGI GRANADOS DO notified of admission to the unit. Orders received. See assessment for past medical history, medications and allergies. Patient and/or family oriented to unit. [facility] reviewed. Clothing/patient valuable form completed. CELIA MACIAS
--- NOTE | 2018-09-29 23:48 | NUR ---
SPOKE WITH LEANN FROM [facility]. PATIENT IS TO BE ADMITTED REGULAR INPATIENT, BUT WILL BE PAID FOR BY HOSPICE. CODE STATUS PER HOSPICE IS FULL CODE. MEDICATION LIST RECEIVED FROM [facility].
[2018-09-30] VITALS: BP 150/82
--- NOTE | 2018-09-30 00:37 | NUR ---
ATIVAN ADMINISTERED PRESCRIBED FOR ANXIETY. WILL MONITOR FOR EFFECTIVENESS.
[2018-09-30] MEDS ORDERED: TRAMADOL HCL50 MG PO (01:03)
[2018-09-30] MEDS ORDERED: MORPHINE S20 MG/1 M1 PO (01:07)
[2018-09-30] MEDS ORDERED: NITROSTAT0.4 MG SL (01:09)
--- NOTE | 2018-09-30 01:37 | NUR ---
PATIENT RESTING WITH EYES CLOSED AT THIS TIME. BED LOCKED IN LOWEST POSITION, BED ALARM ON, CALL GLYNN WITHIN REACH. WILL MONITOR.
--- NOTE | 2018-09-30 05:34 | NUR ---
PATIENT REQUESTING PAIN MEDICATION FOR BACK PAIN RATED 10/10 ON 0/10 SCALE. MORPHINE ADMINISTERED PRESCRIBED. WILL MONITOR FOR EFFECTIVENESS.
[2018-09-30 07:01] LABS: BASO # 0.1 10*3/uL (0.0-0.1); BASO % 0.5 % (0.0-1.0); EOS # 0.1 10*3/uL (0.0-0.4); EOS % 1.5 % (1.0-4.0); HEMATOCRIT 37.6 % (42.0-52.0); HEMOGLOBIN 12.3 g/dl (14.0-18.0); LYMPH % 10.4 % (27.0-41.0); MEAN CELL VOLUME 96.7 fl (80.0-94.0); MEAN CORPUSCULAR HGB 31.6 pg (27.0-31.0); MEAN CORPUSCULAR HGB CONC 32.7 g/dl (33.0-37.0); MEAN PLATELET VOLUME 9.6 fl (9.6-12.3); MONO # 0.7 10*3/uL (0.1-1.0); MONO % 7.7 % (3.0-9.0); NEUT # 7.4 10*3/uL (2.3-7.9); NEUT % 79.2 % (47.0-73.0); PLATELET COUNT AUTOMATED 101 10*3/uL (130-400); RED BLOOD COUNT 3.89 10*6/uL (4.50-5.90); RED CELL DISTRI WIDTH 13.1 % (0-14.5); WHITE BLOOD COUNT 9.4 10*3/uL (4.8-10.8)
[2018-09-30 07:33] LABS: ALBUMIN 3.2 gm/dl (3.1-4.5); ALKALINE PHOSPHATASE 56 U/L (45-117); BUN 7 mg/dl (7-24); CHLORIDE 98 mmol/L (98-107); CREATININE 0.66 mg/dL (0.70-1.30); PHOSPHOROUS 2.1 mg/dL (2.5-4.9); POTASSIUM 3.5 mmol/L (3.5-5.1); SGOT/AST 13 IU/L (3-35); SGPT/ALT 14 U/L (12-78); SODIUM 137 mmol/L (136-145); TOTAL PROTEIN 6.3 gm/dL (6.4-8.2)
[2018-09-30 08:00] VITALS: BP 162/86
[2018-09-30 12:00] VITALS: BP 130/90
[2018-09-30 15:46] LABS: BILIRUBIN NEGATIVE (NEGATIVE); BLOOD NEGATIVE (NEGATIVE); CLARITY CLEAR (CLEAR); COLOR YELLOW (YELLOW); GLUCOSE NEGATIVE (NEGATIVE); KETONE NEGATIVE (NEGATIVE); LEUKO ESTERASE NEGATIVE (NEGATIVE); NITRITE NEGATIVE (NEGATIVE)
[2018-09-30 15:58] LABS: WBC 0-2 wbc/hpf (0-5)
[2018-09-30 16:00] VITALS: BP 148/70
--- NOTE | 2018-09-30 17:52 | NUR ---
NOTIFIED OF PATIENTS C/O OF PAIN PATIENT TEARFUL, ULTRAM INEFFECTIVE, PER PATIENT HE DOESNT WANNA BE ALIVE WITH THIS PAIN. HOME MEDICATION 20MG PO MORPHINE CONITNUED AND ADMINISTERED PER ORDER. KIRA BRAVO TO MONITOR
--- NOTE | 2018-09-30 19:27 | NUR ---
PATIENT REQUESTING PAIN MEDICATION FOR CHRONIC BACK PAIN RATED 9/10 ON 0/10 SCALE. IV MORPHINE ADMINISTERED PRESCRIBED. WILL MONITOR FOR EFFECTIVENESS.
[2018-09-30 20:00] VITALS: BP 148/68; BP 150/65
--- NOTE | 2018-09-30 20:26 | NUR ---
PATIENT REQUESTING PAIN MEDICATION FOR BACK PAIN RATED 8/10 ON 0/10 SCALE. MORPHINE CONCENTRATE ADMINISTERED PRESCRIBED. WILL MONITOR FOR EFFECTIVENESS.
--- NOTE | 2018-09-30 20:27 | NUR ---
PATIENT STATES MINIMAL RELIEF WITH IV MORPHINE. WILL MONITOR.
--- NOTE | 2018-09-30 21:18 | NUR ---
NOTED COUGHING WHEN SWALLOWING NECTAR THICK LIQUIDS AFTER TAKING PILLS.
--- NOTE | 2018-09-30 21:19 | NUR ---
PATIENT REQUESTING PAIN MEDICATION FOR BACK PAIN RATED 8/10 ON 0/10 SCALE. ULTRAM ADMINISTERED PRESCRIBED. WILL MONITOR FOR EFFECTIVENESS.
--- NOTE | 2018-09-30 22:00 | NUR ---
PATIENT C/O CHRONIC BACK PAIN. KPAD IS USE- SKIN ON BACK NOT RED. WILL CONTINUE TO MONITOR.
--- NOTE | 2018-09-30 22:19 | NUR ---
PATIENT RESTING WITH EYES CLOSED AT THIS TIME. BED LOCKED IN LOWEST POSITION, BED ALARM ON, CALL GLYNN WITHIN REACH. WILL MONITOR.
--- NOTE | 2018-09-30 22:57 | NUR ---
PATIENT REQUESTING PAIN MEDICATION FOR CHRONIC BACK PAIN RATED 8/10 ON 0/10 SCALE. IV MORPHINE ADMINISTERED PRESCRIBED. WILL MONITOR FOR EFFECTIVENESS.
[2018-10-01] VITALS: BP 145/76
--- NOTE | 2018-10-01 00:43 | NUR ---
24 HR chart check completed.
--- NOTE | 2018-10-01 01:09 | NUR ---
PATIENT REQUESTING PAIN MEDICATION FOR CHRONIC BACK PAIN RATED 7/10 ON 0/10 SCALE. ULTRAM ADMINISTERED PRESCRIBED. ATIVAN ADMINISTERED FOR ANXIETY PRESCRIBED. WILL MONITOR FOR EFFECTIVENESS.
--- NOTE | 2018-10-01 02:09 | NUR ---
PATIENT RESTING WITH EYES CLOSED AT THIS TIME. RESPIRATION EASY AND UNLABORED WITH PERIODS OF SLEEP APNEA, NOT LASTING MORE THAN 7 SECONDS, ON 3LNC. BED LOCKED IN LOWEST POSITION, BED ALARM ON, AND CALL LIGHT WITHIN REACH.
[2018-10-01 06:26] LABS: BASO % 0.6 % (0.0-1.0); EOS # 0.3 10*3/uL (0.0-0.4); EOS % 4.9 % (1.0-4.0); HEMATOCRIT 38.2 % (42.0-52.0); LYMPH % 14.6 % (27.0-41.0); MEAN CELL VOLUME 97.9 fl (80.0-94.0); MEAN CORPUSCULAR HGB 30.8 pg (27.0-31.0); MEAN CORPUSCULAR HGB CONC 31.4 g/dl (33.0-37.0); MEAN PLATELET VOLUME 9.4 fl (9.6-12.3); MONO # 0.8 10*3/uL (0.1-1.0); MONO % 11.2 % (3.0-9.0); NEUT # 4.6 10*3/uL (2.3-7.9); PLATELET COUNT AUTOMATED 109 10*3/uL (130-400); RED CELL DISTRI WIDTH 13.2 % (0-14.5); WHITE BLOOD COUNT 6.8 10*3/uL (4.8-10.8)
[2018-10-01 06:32] LABS: ALKALINE PHOSPHATASE 47 U/L (45-117); BUN 5 mg/dl (7-24); CHLORIDE 102 mmol/L (98-107); CREATININE 0.71 mg/dL (0.70-1.30); PHOSPHOROUS 3.4 mg/dL (2.5-4.9); POTASSIUM 3.8 mmol/L (3.5-5.1); SGOT/AST 12 IU/L (3-35); SGPT/ALT 13 U/L (12-78); SODIUM 141 mmol/L (136-145)
--- NOTE | 2018-10-01 06:39 | NUR ---
PATIENT REFUSED TO TAKE PROTONIX AND PAIN MEDICATION (ULTRAM) AT THIS TIME BECAUSE HE IS SLEEPING WELL.
[2018-10-01 08:26] VITALS: BP 146/74
--- NOTE | 2018-10-01 08:36 | NUR ---
Nursing screen received and occupational therapy referral received. Kelsea Wang OTR/
--- NOTE | 2018-10-01 10:15 | NUR ---
PHYSICAL THERAPY PT order received and chart reviewed. Patient is inpatient hospice at this time. Discharge PT orders. Thank you. Nika Suárez,PT,DPT.
--- NOTE | 2018-10-01 10:59 | NUR ---
Preliminary Swallowing assessment note Cough and choke with thin liquids reduced with nectar liquids. patient declining thick liquids and thin with chin tuck redcued cough and choke to 1/5 20% on thin liquids. Soft foods oral and pharyngneal phases wfl at bedside however patient reports globus with solid foods mostly naming regular consistency foods. Recommend MBS to determine and assess swallow compensatory strategies as patient reports , " Once you leave this room I wont use this thickener". Educated patient on aspiration and concern for thin liquids. MBS ordered and will recommend diet based on results. Kimberley Franco MA CCC-CONTINUOUS IMPROVEMENT CONSULTANT
--- NOTE | 2018-10-01 11:45 | NUR ---
Occupational Therapy evaluation received and chart reviewed. Patient is inpatient hospice at this time. Discharge OT order. Thank you. Kelsea Wang OTR/l
--- NOTE | 2018-10-01 11:53 | NUR ---
Preliminary MBS report Patient viewed in lateral plane and provided thin liquid via straw, 1 piece of turkey sandwhich and 1 teaspoon of applesauce. Moderate amount of penetration into laryngeal vestibule with straw on sequential sips of thin liquids but cleared and no evidence of aspiration and this can be considered normal for elderly as penetration was cleared with laryngeal elevation. No coughng and choking on penetration howefver severe cough and choke instance noted but not observed with any penetration or observed aspiration with severe wet and gurgly quality quality but no pharyngeal residue noted. Physician may wish to pursue assessment below UES in upper or lower esophogus as often globus is reported to be felt in phayrnx from esophogus. Patient reports pharygneal globus without any pharyngeal residue. recommend small single sips of thin liquid via straw wiht chin tuck and patient is candidate for regular consistency foods to upgrade. Speech to follow at bedside ofr 1-2 days and recommend reflux precaustions wiht meals and po intake. Kimberley Franco MA CCC-APPLE CHECKER
[2018-10-01 12:00] VITALS: BP 120/72
--- NOTE | 2018-10-01 13:11 | NUR ---
Field Instructor in to talk to patient. Patient states lives at HOME with . There are NO steps in the home. Physician: MATTY Pharmacy: [facility] [place]OUGH [place] AND [place] [facility] Patient's level of ADLs: INDEPENDENT Patient has working utilities: YES DME: BED, POWER WHEELCHAIR, RAMPS, WALKER OXYGEN Follow-up physician's appointment after d/c: WILL BE MADE BY HOSPITALIST NURSE DIRECTOR ON DISCHARGE Does patient want to access PORTAL?: NO Discharge plan PT LIVES AT HOME WITH HIS AND IS CURRENTLY UNDER [facility] AND PLANS TO RETURN HOME WITH THEM ON DISCHARGE. PT ALSO SAYS HE HAS VISITING NURSES [place]OUGH [place]. WILL CONTINUE TO FOLLOW. STATES HE WILL HAVE A WAY HOME ON DISCHARGE. BREANN MACIAS
[2018-10-01 16:00] VITALS: BP 111/53
--- NOTE | 2018-10-01 16:04 | NUR ---
PHYSICAL THERAPY Nursing screen received and chart reviewed. Thank you. Nkia Suárez,PT,DPT.
--- NOTE | 2018-10-01 19:45 | NUR ---
24 HR CHART CHECK COMPLETE.
[2018-10-01 20:00] VITALS: BP 142/70
[2018-10-02] VITALS (7 sets, daily range): BP systolic 110–172; BP diastolic 56–98
--- NOTE | 2018-10-02 11:24 | NUR ---
speech daily note-discharge summary Patient seen in room refusing to turn television down with little interest in exercises to strengthen tongue base or dysphagia therapy. Patient able to report and demonstrate small single sips wiht chin tuck on thin liquids with no overt s/s aspiration. Discussed results of MBS and recommendations again. Patient able to verbalize understanding to follow reflux precaustions and added to strategies. Discharge due to independent use of strategies and above. Kimberley Franco MA CCC-KNIFE SETTER GRINDER MACHINE
--- NOTE | 2018-10-02 14:41 | NUR ---
PT HAS HH AIDS FROM [facility]OUGH [place] AND ALSO HAVE [facility]. WILL DSICHARGE TO HOME WHEN MEDICALLY STABLE WITH CONTINUED SERVICES.
--- NOTE | 2018-10-02 21:45 | NUR ---
PATIENT COMPLAINING OF CHRONIC BACK PAIN. RATES 10. MEDICATED WITH ULTRAM AT THIS TIME. WILL CHECK EFFECTIVNESS. PATIENT VOICES NO OTHER COMPLAINTS AT THIS TIME. BED IN LOWEST POSITION, CALL LIGHT WITHIN REACH. WILL CONTINUE TO MONITOR.
--- NOTE | 2018-10-02 23:23 | NUR ---
ULTRAM NOT EFFECTIVE. PATIENT STILL COMPLAINING OF BACK PAIN. RATES 12/13. MEDICATED WITH IV MORPHINE. WILL CHECK EFFECTIVENESS.
[2018-10-03] VITALS: BP 168/90
--- NOTE | 2018-10-03 01:36 | NUR ---
PATIENT REQUESTING SOMETHING ELSE. STATES HIS BACK IS STILL HURTING AND CANT SLEEP. PATIENT MEDICATED WITH ORAL MORPHINE. WILL CHECK EFFECTIVENESS.
[2018-10-03 01:59] VITALS: BP 153/86
--- NOTE | 2018-10-03 02:30 | NUR ---
PATIENT SLEEPING. RESTING COMFORTABLY. NO SIGNS OF DISTRESS. RESPIRATIONS EASY, NONLABORED. OXYGEN ON. BED IN LOWEST POSITION,CALL LIGHT WITHIN REACH, BED ALARM ON. WILL CONTINUE TO MONITOR.
--- NOTE | 2018-10-03 08:00 | NUR ---
PT SITTING UP IN ROOM, ALERT ORIENTED AND PLEASANT MOOD WITH NO COMPLAINTS VOICED. RESPIRATIONS UNLABORED ON 3L NC. ASSESSMENT COMPLETE.NO S/S OF DISTRESS. ALL SAFETY MEASURES IN PLACE. CALL LIGHT IN REACH.
[2018-10-03 09:15] VITALS: BP 148/70
--- NOTE | 2018-10-03 09:31 | NUR ---
PHYSICAL THERAPY Physical therapy evaluation attempted. Patient refusing, stating, "I'm going home today. I will get therapy at home." Will try again another date. Thank you. Nika Suárez,PT,DPT
--- NOTE | 2018-10-03 09:33 | NUR ---
Occupational Therapy evaluation offered this date per order by Lester HORSE RANCHER d/t weakness. Patient declined OT stating that he is going to be discharged today and that it was "no use starting" today. Patient requests home health OT,PT, SN upon d/c. Discharge referral d/t patients refusal. Kelsea Wang OTR/L
[2018-10-03 09:41] LABS: BASO % 0.1 % (0.0-1.0); HEMATOCRIT 37.5 % (42.0-52.0); LYMPH # 0.7 10*3/uL (1.3-4.4); LYMPH % 7.5 % (27.0-41.0); MEAN CELL VOLUME 96.9 fl (80.0-94.0); MEAN PLATELET VOLUME 9.1 fl (9.6-12.3); MONO # 0.4 10*3/uL (0.1-1.0); MONO % 3.7 % (3.0-9.0); NEUT # 8.2 10*3/uL (2.3-7.9); NEUT % 87.5 % (47.0-73.0); PLATELET COUNT AUTOMATED 120 10*3/uL (130-400); RED BLOOD COUNT 3.87 10*6/uL (4.50-5.90); RED CELL DISTRI WIDTH 13.1 % (0-14.5); WHITE BLOOD COUNT 9.4 10*3/uL (4.8-10.8)
[2018-10-03 09:57] LABS: ALBUMIN 3.1 gm/dl (3.1-4.5); ALKALINE PHOSPHATASE 47 U/L (45-117); BUN 10 mg/dl (7-24); CHLORIDE 103 mmol/L (98-107); CREATININE 1.08 mg/dL (0.70-1.30); SGOT/AST 14 IU/L (3-35); SGPT/ALT 17 U/L (12-78); SODIUM 137 mmol/L (136-145); TOTAL PROTEIN 6.3 gm/dL (6.4-8.2)
[2018-10-03 12:00] VITALS: BP 154/76
--- NOTE | 2018-10-03 12:00 | NUR ---
[facility] IN TO SEE PT AT THIS TIME.
--- NOTE | 2018-10-03 13:33 | NUR ---
PT IS FROM HOME, HAS [facility]OUGH [facility] AND [facility]. WILL CONTINUE TO FOLLOW.
[2018-10-03 16:00] VITALS: BP 164/85
--- NOTE | 2018-10-03 17:18 | NUR ---
PT REFUSING 14 UNITS OF HUMALOG FOR A BLOOD SUGAR OF 409. PT STATES THAT HE "HAS NEVER BEEN DIABETIC AND IS NOT ABOUT TO START". IT IS EXPLAINED TO PATIENT WHY WE ARE CHECKING HIS BLOOD SUGARS AND THE BENEFITS OF USING INSULIN FOR AN ELEVATED BLOOD SUGAR. PT STILL REFUSES. PHYSICIAN NOTIFIED AND STATES THAT HE WILL PASS IT ON.
[2018-10-03 20:00] VITALS: BP 157/74
--- NOTE | 2018-10-03 22:21 | NUR ---
PATIENT HAS NO COMPLAINTS AT THIS TIME. STATES HE FEELS GOOD AND IS READY TO BE DISCHARGED IN THE MORNING. PATIENT BLOOD SUGAR 302. EDUCATED/SPOKE WITH PATIENT FOR AWHILE ABOUT DIABTES/INSULIN COVERAGE. PATIENT IN AGREENCE TO TAKE INSULIN COVERAGE. WILL CONTINUE TO MONITOR.
[2018-10-04] VITALS: BP 155/70
--- NOTE | 2018-10-04 00:17 | NUR ---
PATIENT C/O BACK PAIN RATES 10/10. MEDICATED WITH PO MORPHINE. NO OTHER COMPLAINTS. WILL CHECK EFFECTIVENESS.
--- NOTE | 2018-10-04 04:05 | NUR ---
PATIENT SLEEPING. NO SIGNS OF DISTRESS. RESPIRATIONS EASY, NONLABORED. HR IN THE 90S. BED IN LOWEST POSITION, CALL LIGHT WITHIN REACH. WILL CONTINUE TO MONITOR.
--- NOTE | 2018-10-04 06:29 | NUR ---
PATIENT C/O OF BACK PAIN. RATES 08/13. MEDICATED WITH PO MORPHINE. WILL CHECK EFFECTIVENESS.
[2018-10-04 08:00] VITALS: BP 158/78
--- NOTE | 2018-10-04 09:45 | NUR ---
COMMUNITY SENIOR NET ARCHITECT IN TO SEE PT. LEFT INFO REGARDING TRANSPORTATION UPON D/C. NOTIFIED BREANN MACIAS AND GAVE HER THE INFO.
--- NOTE | 2018-10-04 10:41 | NUR ---
UNIQUE received notice that when patient is discharged, per hospice, he will be transported by [facility] [phone] for hospice. -UNIQUE Gibbons
[2018-10-04 11:58] VITALS: BP 143/91
--- NOTE | 2018-10-04 14:03 | NUR ---
PT WILL BE DISCHARGED TO HOME WITH [facility] AND [facility] ON DISCHARGE.
--- NOTE | 2018-10-04 14:27 | NUR ---
PT STILL OFF FLOOR IN [facility] REHAB FOR STRESS TEST.
--- NOTE | 2018-10-04 15:06 | NUR ---
PHYSICAL THERAPY Physical therapy evaluation offered. Patient refusing again this date. Discharge PT orders. Thank you. Nika Suárez,PT,DPT.
[2018-10-04 16:00] VITALS: BP 158/60
[2018-10-04 20:00] VITALS: BP 170/84
[2018-10-05 08:00] VITALS: BP 162/78
[2018-10-05] MEDS ORDERED: LEVOFLOXACIN500 MG PO (11:15)
--- NOTE | 2018-10-05 11:40 | NUR ---
STUDENT SERVICES ADVISOR received notice of discharge. Contacted [facility] for 1pm pickup, notified patients , and contacted [facility] to alert them of patient discharge. Work Racket Stringer is aware of the pickup time. -UNIQUE Gibbons
[2018-10-05 12:00] VITALS: BP 160/82
--- NOTE | 2018-10-05 12:58 | NUR ---
NOTIFIED NARDA WING AT [facility] OF PT DISCHARGE.NOTIFIED PT OF PT TRANSPORT TO HOME.
--- NOTE | 2018-10-05 13:00 | NUR ---
Discharge instructions reviewed with patient/family. Patient receptive and verbalizes understanding. Follow-up care arranged. Written instructions given to patient/family. EVAN GRIFFITH
== END 2018-10-05 13:00 | disposition hospice, home (50) | DRG 194 ==
LOC: ED 19:43 → 5E 22:30 → EDHOLD 22:30 → 5E 23:05
PROVIDERS: Emergency Medicine Emergency Medical Services; Family Medicine; Internal Medicine; Registered Nurse; Student in an Organized Health Care Education/Training Program; ADMIT Internal Medicine
DX: J18.1 Lobar pneumonia, unspecified organism (principal); J96.12 Chronic respiratory failure with hypercapnia; I50.42 Chronic combined systolic (congestive) and diastolic (congestive) heart failure; E44.1 Mild protein-calorie malnutrition; R04.2 Hemoptysis; I48.91 Unspecified atrial fibrillation; I25.10 Atherosclerotic heart disease of native coronary artery without angina pectoris; G47.30 Sleep apnea, unspecified; K21.9 Gastro-esophageal reflux disease without esophagitis; I11.0 Hypertensive heart disease with heart failure; I35.0 Nonrheumatic aortic (valve) stenosis; D53.9 Nutritional anemia, unspecified; E55.9 Vitamin D deficiency, unspecified; R73.9 Hyperglycemia, unspecified; F43.10 Post-traumatic stress disorder, unspecified; M48.00 Spinal stenosis, site unspecified; K44.9 Diaphragmatic hernia without obstruction or gangrene; Z51.5 Encounter for palliative care; F41.9 Anxiety disorder, unspecified; G89.29 Other chronic pain; M54.9 Dorsalgia, unspecified; F32.9 Major depressive disorder, single episode, unspecified; E66.9 Obesity, unspecified; Z96.642 Presence of left artificial hip joint; Z96.651 Presence of right artificial knee joint; Z99.81 Dependence on supplemental oxygen; Z88.9 Allergy status to unspecified drugs, medicaments and biological substances; Z85.21 Personal history of malignant neoplasm of larynx; Z86.718 Personal history of other venous thrombosis and embolism; I25.2 Old myocardial infarction; Z90.49 Acquired absence of other specified parts of digestive tract; Z82.49 Family history of ischemic heart disease and other diseases of the circulatory system; Z84.89 Family history of other specified conditions; Z83.6 Family history of other diseases of the respiratory system; Z68.30 Body mass index [BMI] 30.0-30.9, adult

== ENCOUNTER 2019-02-15 16:10 | Emergency (ER) | payer MEDICARE ==
[~2019-02-15 16:10] MED LIST changes: +LEVOFLOXACIN500 MG PO; +MORPHINE S20 MG/1 M1 PO; +NITROSTAT0.4 MG SL
[2019-02-15 17:00] LABS: BASO # 0.1 10*3/uL (0.0-0.1); BASO % 0.9 % (0.0-1.0); EOS # 0.4 10*3/uL (0.0-0.4); EOS % 4.3 % (1.0-4.0); HEMATOCRIT 44.5 % (42.0-52.0); HEMOGLOBIN 14.2 g/dl (14.0-18.0); LYMPH # 1.4 10*3/uL (1.3-4.4); LYMPH % 13.8 % (27.0-41.0); MEAN CELL VOLUME 96.9 fl (80.0-94.0); MEAN CORPUSCULAR HGB 30.9 pg (27.0-31.0); MEAN CORPUSCULAR HGB CONC 31.9 g/dl (33.0-37.0); MEAN PLATELET VOLUME 9.5 fl (9.6-12.3); MONO # 0.8 10*3/uL (0.1-1.0); MONO % 7.6 % (3.0-9.0); NEUT # 7.4 10*3/uL (2.3-7.9); NEUT % 72.9 % (47.0-73.0); PLATELET COUNT AUTOMATED 128 10*3/uL (130-400); RED BLOOD COUNT 4.59 10*6/uL (4.50-5.90); RED CELL DISTRI WIDTH 12.7 % (0-14.5); WHITE BLOOD COUNT 10.1 10*3/uL (4.8-10.8)
[2019-02-15 17:14] LABS: ALBUMIN 3.3 gm/dl (3.1-4.5); ALKALINE PHOSPHATASE 73 U/L (45-117); BUN 12 mg/dl (7-24); CHLORIDE 104 mmol/L (98-107); POTASSIUM 4.1 mmol/L (3.5-5.1); SGOT/AST 31 IU/L (3-35); SGPT/ALT 26 U/L (12-78); SODIUM 141 mmol/L (136-145); TOTAL PROTEIN 6.7 gm/dL (6.4-8.2)
[2019-02-15 17:17] LABS: ACT PARTIAL THROMBO TIME 29.9 SECONDS (20.0-32.1); INTERNATIONAL NORM RATIO 1.1 (2.0-3.5)
[2019-02-15 18:38] LABS: BILIRUBIN NEGATIVE (NEGATIVE); BLOOD NEGATIVE (NEGATIVE); CLARITY CLEAR (CLEAR); COLOR YELLOW (YELLOW); GLUCOSE NEGATIVE (NEGATIVE); KETONE NEGATIVE (NEGATIVE); LEUKO ESTERASE NEGATIVE (NEGATIVE); NITRITE NEGATIVE (NEGATIVE); PH 5.5 (5.0-9.0); SPECIFIC GRAVITY >= 1.030 (1.005-1.030); UROBILINOGEN 0.2 E.U./dl (0.2-1.0)
[2019-02-15 18:45] LABS: MUCOUS 1+
[2019-02-15 18:46] LABS: BACTERIA TRACE
== END 2019-02-15 22:30 | disposition home or self-care (01) ==
LOC: ED 16:10
PROVIDERS: Nurse Practitioner Family
DX: R41.82 Altered mental status, unspecified (principal); I25.10 Atherosclerotic heart disease of native coronary artery without angina pectoris; G89.29 Other chronic pain; K21.9 Gastro-esophageal reflux disease without esophagitis; I25.2 Old myocardial infarction; I11.0 Hypertensive heart disease with heart failure; I50.9 Heart failure, unspecified; E66.9 Obesity, unspecified; J44.9 Chronic obstructive pulmonary disease, unspecified; I48.91 Unspecified atrial fibrillation; Z88.8 Allergy status to other drugs, medicaments and biological substances; Z91.041 Radiographic dye allergy status; Z79.899 Other long term (current) drug therapy; Z79.2 Long term (current) use of antibiotics; Z90.49 Acquired absence of other specified parts of digestive tract

== ENCOUNTER 2019-09-14 15:20 | Inpatient (IN) | payer MEDICARE ==
[~2019-09-14] VITALS: Ht 187.9 cm; Wt 96.9 kg
[2019-09-14 15:26] VITALS: BP 145/91
[2019-09-14 15:47] LABS: BASO # 0.1 10*3/uL (0.0-0.1); BASO % 0.9 % (0.0-1.0); EOS # 0.4 10*3/uL (0.0-0.4); HEMATOCRIT 40.8 % (42.0-52.0); LYMPH # 1.4 10*3/uL (1.3-4.4); LYMPH % 20.1 % (27.0-41.0); MEAN CELL VOLUME 96.9 fl (80.0-94.0); MEAN CORPUSCULAR HGB 31.4 pg (27.0-31.0); MEAN CORPUSCULAR HGB CONC 32.4 g/dl (33.0-37.0); MEAN PLATELET VOLUME 9.3 fl (9.6-12.3); MONO # 0.5 10*3/uL (0.1-1.0); MONO % 7.2 % (3.0-9.0); NEUT # 4.5 10*3/uL (2.3-7.9); NEUT % 65.5 % (47.0-73.0); PLATELET COUNT AUTOMATED 95 10*3/uL (130-400); RED BLOOD COUNT 4.21 10*6/uL (4.50-5.90); RED CELL DISTRI WIDTH 12.1 % (0-14.5); WHITE BLOOD COUNT 6.8 10*3/uL (4.8-10.8)
[2019-09-14 15:56] LABS: ACT PARTIAL THROMBO TIME 25.4 SECONDS (20.0-32.1); INTERNATIONAL NORM RATIO 1.1 (2.0-3.5)
--- NOTE | 2019-09-14 16:00 | NUR ---
PATIENT ISAACS INSERTED BY OVCT STUDENT NURSE. THIS NURSE AT BEDSIDE AND EDDY INSTRUCTOR AT BEDSIDE WELL.
[2019-09-14 16:03] LABS: ALBUMIN 3.4 gm/dl (3.1-4.5); ALKALINE PHOSPHATASE 77 U/L (45-117); BUN 17 mg/dl (7-24); CHLORIDE 101 mmol/L (98-107); CREATININE 0.79 mg/dL (0.70-1.30); POTASSIUM 3.9 mmol/L (3.5-5.1); SGOT/AST 22 IU/L (3-35); SGPT/ALT 30 U/L (12-78); SODIUM 139 mmol/L (136-145); TOTAL PROTEIN 6.8 gm/dL (6.4-8.2)
[2019-09-14 16:04] LABS: TROPONIN I 0.021 ng/ml (<0.045)
--- NOTE | 2019-09-14 16:12 | NUR ---
PATIENT PLACED ON 4 L/M NASAL CANNULA POST TREATMENT SPO2 95%
--- NOTE | 2019-09-14 16:21 | NUR ---
[facility] NUMBER. THEY WANT TO BE CALLED WHEN A DECISION IS MADE ABOUT PT.
[2019-09-14 17:31] VITALS: BP 119/64
--- NOTE | 2019-09-14 17:38 | NUR ---
1,100CC OF URINE OBTAINED THROUGH ISAACS
[2019-09-14 18:24] VITALS: BP 117/62
[2019-09-14] MEDS ORDERED: ASPIRIN ADULT L81 M2 PO (18:36)
[2019-09-14] MEDS ORDERED: MORPHINE SULFAT60 MG PO (18:36)
--- NOTE | 2019-09-14 18:51 | NUR ---
Time: 1844 A 89 year old MALE admitted to under services of MAREK MERRITT DO. Pt. arrived via bed from ER. Chief complaint: SOB,CHF,HEART FAILUR. MARIELY GREEN
--- NOTE | 2019-09-14 18:52 | NUR ---
PT REFUSED WOUND PICS. DENIES HAVING WOUNDS
--- NOTE | 2019-09-14 18:54 | NUR ---
ATTEMPTED TO NOTIFY RESIDENT OF CRITICAL TROPONIN. NO ANSWER. WILL RETRY
--- NOTE | 2019-09-14 19:10 | NUR ---
MED REC UPDATED VIA CLAIM HISTORY.
--- NOTE | 2019-09-14 19:20 | NUR ---
ASSUMED CARE OF PATIENT. PATIENT IS RESTING IN BED WITH EASY AND REGULAR RESPERS. ASSESSMENT IS COMPLETE. BED IS LOW, LOCKED, AND CALL LIGHT IS WITHIN REACH. DR. FREEMAN AWARE OF CRITICAL TROPONIN AND [address] PREP FOR CONTRAST ALLERGY. WILL CONTINUE TO MONITOR, SEE INTERVENTIONS.
--- NOTE | 2019-09-14 20:00 | NUR ---
ASSUMED CARE OF PATIENT. ASSESSMENT IS COMPLETE. BED IS LOW, LOCKED, ALARMED, AND CALL LIGHT IS WITHIN REACH. NO C/O OR S/S OF DISTRESS NOTED AT THIS TIME. WILL CONTINUE TO MONITOR, SEE INTERVENTIONS.
--- NOTE | 2019-09-14 22:14 | NUR ---
NOTIFIED DR. FREEMAN OF PATIENTS CRITICAL TROPONIN
--- NOTE | 2019-09-14 23:20 | NUR ---
PRN TYLENOL GIVEN FOR C/O BACK PAIN RATING A 7/10. CALL LIGHT IS WITHIN REACH, WILL MONITOR EFFECT.
[2019-09-15 00:02] VITALS: BP 117/62
--- NOTE | 2019-09-15 00:20 | NUR ---
PRN TYLENOL SEEMS EFFECTIVE, PATIENT IS SLEEPING WITH EASY AND REGULAR RESPERS. CALL LIGHT IS WITHIN REACH.
[2019-09-15 05:38] LABS: BUN 18 mg/dl (7-24); CHLORIDE 98 mmol/L (98-107); CREATININE 0.89 mg/dL (0.70-1.30); POTASSIUM 4.5 mmol/L (3.5-5.1); SODIUM 136 mmol/L (136-145)
[2019-09-15 06:04] LABS: BASO % 0.5 % (0.0-1.0); EOS % 0.5 % (1.0-4.0); HEMATOCRIT 41.2 % (42.0-52.0); LYMPH # 0.7 10*3/uL (1.3-4.4); LYMPH % 12.3 % (27.0-41.0); MEAN CELL VOLUME 96.5 fl (80.0-94.0); MEAN CORPUSCULAR HGB 31.4 pg (27.0-31.0); MEAN CORPUSCULAR HGB CONC 32.5 g/dl (33.0-37.0); MEAN PLATELET VOLUME 9.8 fl (9.6-12.3); MONO # 0.1 10*3/uL (0.1-1.0); MONO % 1.2 % (3.0-9.0); NEUT % 85.2 % (47.0-73.0); PLATELET COUNT AUTOMATED 91 10*3/uL (130-400); RED BLOOD COUNT 4.27 10*6/uL (4.50-5.90); RED CELL DISTRI WIDTH 12.1 % (0-14.5); WHITE BLOOD COUNT 5.8 10*3/uL (4.8-10.8)
--- NOTE | 2019-09-15 06:04 | NUR ---
PATIENT AWAKENS EASILY FOR ADMINISTRATION OF AM MEDICATIONS. CALL LIGHT IS WITHIN REACH.
--- NOTE | 2019-09-15 07:01 | NUR ---
CHART CHECK COMPLETE.
[2019-09-15 07:26] LABS: VITAMIN D, 25-HYDROXY 20.7 ng/mL (30-100)
[2019-09-15 08:00] VITALS: BP 162/86
[2019-09-15 12:00] VITALS: BP 135/88
[2019-09-15 15:11] VITALS: BP 123/77
[2019-09-15 16:00] VITALS: BP 130/73
--- NOTE | 2019-09-15 20:00 | NUR ---
PT IS AWAKE AND SITITNG UP IN BED AT THIS TIME. RESPS WNL. NO C/O VOICED. BED IS LOW, CALL LIGHT WITHIN REACH. WILL CONTINUE TO MONITOR.
[2019-09-15 20:30] VITALS: BP 127/54
[2019-09-16] VITALS: BP 116/56
[2019-09-16 08:00] VITALS: BP 135/80
--- NOTE | 2019-09-16 08:06 | NUR ---
Patient requesting a referral to snf at [facility] with his . Contacted [facility] and faxed initial referral; Will need order for physical therapy and Covid 19. Waiting on review/acceptance.
--- NOTE | 2019-09-16 08:13 | NUR ---
PHYSICAL THERAPY Screen received pt admitted from home with COPD exacerbation,CHF,dysphagia. Patient on hospice at home, but pt possibly declining with admittance.Please consult PT if pt has a decline in functional status from baseline, thank you. Erica Bryant PT
--- NOTE | 2019-09-16 08:32 | NUR ---
Nursing screen received and chart reviewed. Patient admitted from home with outpatient hospice with possible SNF placement. Patient admitted for acute on chronic heart failure, COPD exacerbation, and pneumonitis. If patient has a decline in ADLs, transfers, or functional mobility, please send OT orders when appropriate/pending hospice decision. Hermelinda Cox, OTR/L
--- NOTE | 2019-09-16 10:12 | NUR ---
SPEECH PATHOLOGY Clinical swallowing evaluation completed to assess swallowing. Medical history includes CHF, respiratory distress, CA of vocal cord, asthma, COPD, PTSD, a-fib. Patient was alert and cooperative and endorsed difficulty swallowing mostly with meats and breads with a feeling that they are sticking. He underwent esophageal dilation X2 in the past. MBS 10/01/18 revealed penetration with consecutive sips of liquid by straw. Patient was observed taking his morning meds at start of assessment. He took pills with large gulps of liquid with subsequent harsh cough post swallow. Oral exam revealed six teeth. Lingual/labial and buccal skills were WNL in terms of strength, ROM and coordination. For assessment patient was provided with liquid and coarse solid. He displayed no difficulty with solid. He was encouraged to take small single sips of liquid and displayed no overt difficulty. He became aware of the need to take small sips due to effectiveness and stated that he will try to continue this as he noted it was helpful. Recommend he remain on present diet and order foods that are softer and easier to chew. Short term f/u therapy is recommended to ensure adherence to safety precautions. His nurse was educated on results and denilson. and verbalized understanding. Refer to report in [facility] for further info. Thank you for this referral. DEMETRA POWELL MSCCC-STRATEGY CONSULTANT
--- NOTE | 2019-09-16 10:30 | NUR ---
Stoper in to talk to patient. Patient states lives at home with . There are no steps in the home. Physician: nelson corona Pharmacy: [facility] Home health services: none Patient's level of ADLs: INDEPENDENT Patient has working utilities: all working DME: nasal o2 at 4l/min car with lift, ramp at home, Follow-up physician's appointment after d/c: will be made by hospitalist nurse director upon discharge Does patient want to access PORTAL?: no Discharge plan discussed with patient, he states he lives at home with but she is currently in a correction facility, [facility]. he states he was a home alone and had hospice services, doesn't remember name of the hospice company, he stated he does not need hospice services, he states [facility] and can get any equipement or service he needs through them, he stated he wanted to go to [facility] with his . data processing systems project planner will send a referral to rehab suites and wait for acceptance, patient is medicare insurance and will need a three night inpatient stay to qualify for SNF, case management will follow. MOUNIKA PATEL
[2019-09-16 12:00] VITALS: BP 142/91
[2019-09-16 16:00] VITALS: BP 141/89
[2019-09-16 20:00] VITALS: BP 143/67
[2019-09-17] VITALS: BP 135/88
[2019-09-17 08:00] VITALS: BP 129/77; BP 150/86
--- NOTE | 2019-09-17 08:00 | NUR ---
Physical Therapy evaluation completed on fourth floor with full evaluation to follow. Recommend physical therapy per plan of care and SNF upon discharge. Thank you for this referral. Erica Bryant PT
--- NOTE | 2019-09-17 08:07 | NUR ---
Patient revoked [facility] asking for referral to [facility]. Faxed initial referral, waiting on PT eval and covid results.
--- NOTE | 2019-09-17 08:45 | NUR ---
SPEECH PATHOLOGY Patient was seen for treatment this am during breakfast meal. He was sitting upright at side of bed feeding himself. Patient was alert and cooperative. Upon assessment yesterday patient was recommended to consume foods that are softer and easier to chew and swallow, as well as small single sips of liquids. His meal tray consisted of soft items and he reported no difficulty tolerating them and no feeling that the foods were sticking. He was noted at times to take large bites and sips. Reminders were provided regarding small amounts for safety, as prior MBS revealed penetration with consecutive sips of liquid. He verbalized understanding. Continued therapy is recommended focusing on adherence to safety precations to decrease aspiration risk. DEMETRA POWELL MSCCC-BOOKKEEPING CLERKS SUPERVISOR
--- NOTE | 2019-09-17 09:00 | NUR ---
case management visits with patient, he has been referred to [facility] for rehab prior to returning home, telecommunications network planner working on this, case management will follow
--- NOTE | 2019-09-17 09:45 | NUR ---
PT AWAKE, ALERT, ORIENTED X3. STATES HE FEELS BETTER TODAY. PRODUCTIVE COUGH NOTED ON ASSESSMENT FOR CLEAR/YELLOW SPUTUM. SCATTERED RHONCHI AND FAINT WHEEZE NOTED ON AUSCULTATION. NO EDEMA NOTED. ABD SOFT & NONTENDER. DULCOLAX GIVEN UPON REQUEST FOR COMPLAINTS OF DIFFICULTY HAVING BM. CALL LIGHT WITHIN REACH.
--- NOTE | 2019-09-17 10:26 | NUR ---
Contacted Stephanie at and faxed updated clinicals with the physical therapy deena. Waiting on acceptance.
[2019-09-17 12:00] VITALS: BP 157/98
--- NOTE | 2019-09-17 13:54 | NUR ---
Patient has been accepted to Rehab suites and does not require a covid test result prior to discharge. Patient is ok to go when medically stable for discharge.
[2019-09-17 16:00] VITALS: BP 151/75
[2019-09-17 20:00] VITALS: BP 169/98
--- NOTE | 2019-09-17 20:16 | NUR ---
REPORT RECIEVED FROM DARBY [facility]. PT LYING IN BED AT THIS TIME WATCHING TV. PT VOICES NO COMPLAINTS, CALL LIGHT IN REACH
--- NOTE | 2019-09-17 20:53 | NUR ---
24 HR chart check completed.
[2019-09-18] VITALS: BP 170/91
--- NOTE | 2019-09-18 | NUR ---
PT ASLEEP AT THIS TIME
--- NOTE | 2019-09-18 02:00 | NUR ---
PT LYING IN BED ASLEEP AT THIS TIME. O2 INTACT. CALL LIGHT IN REACH
--- NOTE | 2019-09-18 04:00 | NUR ---
PT SLEEPING . CALL LIGHT IN REACH
--- NOTE | 2019-09-18 05:19 | NUR ---
ZOFRAN GIVEN FOR COMPLAINTS OF NAUSEA. WILL MONITOR EFFECTIVENESS.
--- NOTE | 2019-09-18 06:10 | NUR ---
PT STATES, "THAT HELPED ME FEEL BETTER". O2 INTACT. CALL LIGHT IN REACH
[2019-09-18 08:00] VITALS: BP 154/98
--- NOTE | 2019-09-18 08:04 | NUR ---
NOTIFIED REGARDING PATIENT C/O UPSET STOMACH. SMALL YELLOW EMESIS THIS AM. NEW ORDERS TO BE ENTERED PER PHYSICIAN.
--- NOTE | 2019-09-18 08:29 | NUR ---
SPEECH PATHOLOGY Treatment was attempted this am however unable to be completed. Patient reported having an upset stomach and was actively vomiting during this encounter. His nurse was informed. Will attempt treatment at a later time. DEMETRA POWELL MSCCC-UNIT OPERATOR
--- NOTE | 2019-09-18 08:32 | NUR ---
PT MEDICATED WITH IV PHENERGAN SLOWLY VIA SYRINGE PUMP FOR NAUSEA/VOMITING. WILL MONITOR EFFECTIVENESS. IN TO SEE PATIENT. CALL LIGHT WITHIN REACH.
--- NOTE | 2019-09-18 08:56 | NUR ---
PHYSICAL THERAPY Patient was resting comfortably in bed upon therapist arrival this am and reports not feeling well, with increased Nausea. Patient states he feels like he is going to throw up and requested to be seen this pm if feeling better. His Doctor arrived for rounding and will continue per POC as able. Tyrell Morton, YARD JACKER
--- NOTE | 2019-09-18 09:00 | NUR ---
case management visits with patient, he will be discharged to [facility] for short term custodial for rehab prior to returning home, patient is a possible discharge for today, case management/mechanical planner will follow
--- NOTE | 2019-09-18 10:37 | NUR ---
SCHEDULED MS CONTIN GIVEN PER ORDER. WILL MONITOR EFFECTIVENESS.
--- NOTE | 2019-09-18 10:37 | NUR ---
PT REFUSED LOVENOX DESPITE EDUCATION.
--- NOTE | 2019-09-18 10:50 | NUR ---
PT MEDICATED WITH IV ZOFRAN PER PRN ORDER FOR C/O NAUSEA/VOMITING. WILL MONITOR EFFECTIVENESS.
--- NOTE | 2019-09-18 11:33 | NUR ---
patients Covid 19 results are in and negative. Notified Rehab suites and faxed updates. Patient is ok to return when medically stable for discharge.
--- NOTE | 2019-09-18 11:50 | NUR ---
PT STATES SLIGHT RELIEF FROM ZOFRAN. WILL CONTINUE TO MONITOR.
[2019-09-18 12:00] VITALS: BP 145/99
--- NOTE | 2019-09-18 12:16 | NUR ---
MOM GIVEN PER PRN ORDER FOR C/O CONSTIPATION. WILL MONITOR EFFECTIVENESS.
--- NOTE | 2019-09-18 13:02 | NUR ---
NOTIFIED REGARDING PATIENT C/O BACK PAIN. RATES PAIN 11/13. NEW ORDERS RECEIVED.
--- NOTE | 2019-09-18 13:12 | NUR ---
MS CONTIN X 1 DOSE GIVEN AT THIS TIME PER ORDER FOR C/O INCREASED BACK PAIN. WILL MONITOR EFFECTIVENESS.
--- NOTE | 2019-09-18 14:12 | NUR ---
MS CONTIN EFFECTIVE PER PT. WILL CONTINUE TO MONITOR.
--- NOTE | 2019-09-18 15:38 | NUR ---
SPEECH PATHOLOGY Attempted swallowing treatment this pm. Pt lying on his side and awake/alert. He stated that he did not want to have anything to eat/drink at this time and that he was having abdominal pain and wanted to be "left alone." He reported that he had drank some water but had not eaten today and reported that he had vomitted several times, including just before clinician arrived. Clinician stated therapist would return at later time when patient was feeling better and could tolerate treatment. Bandar Muñoz MA [facility]-SCALDER
[2019-09-18 16:00] VITALS: BP 179/83
--- NOTE | 2019-09-18 16:43 | NUR ---
PT MEDICATED WITH IV ZOFRAN PER PRN ORDER FOR C/O NAUSEA/VOMITING. SMALL AMOUNT OF YELLOW/ORANGE EMESIS IN BASIN. WILL MONITOR EFFECTIVENESS.
--- NOTE | 2019-09-18 18:22 | NUR ---
NOTIFIED REGARDING PATIENT C/O BACK PAIN. RATES PAIN 11/13. NEW ORDERS RECEIVED.
--- NOTE | 2019-09-18 18:46 | NUR ---
MS CONTIN 30MG X1 DOSE GIVEN PER ORDER FOR C/O BACK PAIN. RATES PAIN 11/13. WILL MONITOR EFFECTIVENESS.
[2019-09-18 20:00] VITALS: BP 150/85
--- NOTE | 2019-09-18 20:13 | NUR ---
PATIENT SLEEPING AWAKEND EASILY BY VOICE SAID HE'S NOT FEEL WELL TODAY. NO C/O AT THIS TIME FOR NAUSEA. MS CONT HELPING A LITTLE BIT FOR THE PAIN PER PT. PATIENT FALLING BACK TO SLEEP DURING ASSESSMENT.
--- NOTE | 2019-09-18 23:09 | NUR ---
NAUSEATED HAVING VERY HARSH COUGH. ZOFRAN GIVEN PER ORDER FOR NAUSEA. PATIENT NOT GIVEN PO MEDS FOR THIS REASON AT THIS TIME. TOLD PATIENT TO LET ME KNOW WHEN HE FEELS HE CAN RETAIN HIS MEDS. PATIENT AGREED.
[2019-09-19] VITALS: BP 125/87
--- NOTE | 2019-09-19 | NUR ---
VASYL HELPING WITH NAUSEA PATIENT NOT WANTING TO TAKE PO MEDICATION.
--- NOTE | 2019-09-19 02:50 | NUR ---
PATIENT SITTING UP AT SIDE OF BED RESP. EASIER AFTER BREATHING TREATMENT. PATIENT HAD SMALL EMESIS AFTER HARSH COUGHING EPISODE.
--- NOTE | 2019-09-19 03:52 | NUR ---
24 HR chart check completed.
--- NOTE | 2019-09-19 03:53 | NUR ---
SLEEPING AT PRESENT TIME. O2 IN USE.
[2019-09-19 06:30] LABS: BASO % 0.2 % (0.0-1.0); EOS % 0.1 % (1.0-4.0); HEMATOCRIT 50.9 % (42.0-52.0); LYMPH # 1.3 10*3/uL (1.3-4.4); LYMPH % 6.4 % (27.0-41.0); MEAN CELL VOLUME 93.9 fl (80.0-94.0); MEAN CORPUSCULAR HGB 31.2 pg (27.0-31.0); MEAN CORPUSCULAR HGB CONC 33.2 g/dl (33.0-37.0); MEAN PLATELET VOLUME 9.3 fl (9.6-12.3); MONO # 1.3 10*3/uL (0.1-1.0); MONO % 6.4 % (3.0-9.0); NEUT # 17.1 10*3/uL (2.3-7.9); NEUT % 86.1 % (47.0-73.0); PLATELET COUNT AUTOMATED 156 10*3/uL (130-400); RED BLOOD COUNT 5.42 10*6/uL (4.50-5.90); RED CELL DISTRI WIDTH 12.6 % (0-14.5); WHITE BLOOD COUNT 19.8 10*3/uL (4.8-10.8)
--- NOTE | 2019-09-19 06:33 | NUR ---
ZOFRAN GIVEN PER ORDER FOR NAUSEA. PATIENT UNSURE IF HE IS THROWING UP BECAUSE HE IS COUGH SO HARD OR IF ITS REALLY FROM NAUSEA. SEE MAR.
[2019-09-19 06:53] LABS: CREATININE 1.19 mg/dL (0.70-1.30)
--- NOTE | 2019-09-19 07:30 | NUR ---
CALLED INTO PATIENT'S ROOM FOR PATIENT C/O INCREASED WEAKNESS AND STATES HE FEELS LIKE HE IS GOING TO PASS OUT. BP 108/70. POX 93% VIA 4LNC. RR 20. SMALL EMESIS (GREEN LIQUID) DURING ASSESSMENT. NOTIFIED AT THIS TIME AND WILL BE UP TO SEE THE PATIENT. PATIENT TO BE PLACED ON CORRECTIONAL CASE RECORDS SUPERVISOR.
--- NOTE | 2019-09-19 07:50 | NUR ---
PT AGREEABLE TO WEAR CHRISTMAS TREE FARM MANAGER PER ORDER.
--- NOTE | 2019-09-19 07:56 | NUR ---
SCHEDULED PO LOPRESSOR ADMINISTERED AT THIS TIME. A-FIB PER NISSAN SALES CONSULTANT. PATIENT HAS A HISTORY OF A-FIB. HR NOT CONTROLLED. HR RANGING BETWEEN 115-130'S. NOTIFIED.
[2019-09-19 08:00] VITALS: BP 108/70
--- NOTE | 2019-09-19 08:02 | NUR ---
IVF INITIATED AT THIS TIME. WILL CONTINUE TO MONITOR.
--- NOTE | 2019-09-19 08:25 | NUR ---
PHYSICAL THERAPY Patient was resting supine in bed this am when approached for therapy and reports still feeling increased Nausea, including several episodes of Emisis. Patient requested to hold morning treatment and asked to attempt this pm as able. Will continue per POC with all goals as tolerated. Tyrell Morton, STATE DIRECTOR
--- NOTE | 2019-09-19 08:35 | NUR ---
IN TO SEE PATIENT THIS AM.
--- NOTE | 2019-09-19 08:43 | NUR ---
EKG BEING PERFORMED AT THE BEDSIDE PER ORDER.
--- NOTE | 2019-09-19 09:00 | NUR ---
case management visits with patient, he will be discharged to [facility] when stable, case management will follow
--- NOTE | 2019-09-19 09:03 | NUR ---
IN TO SEE PATIENT REGARDING PLAN OF CARE AND REVIEWED EKG.
--- NOTE | 2019-09-19 10:26 | NUR ---
SPEECH PATHOLOGY Clinician attempted treatment this am, however, pt was lying supine in bed and had not slept during previous night. He was awake and mumbling something unintelligible and hardly audible. He had an opened can of tera rossana on his tray table and an unopened cup of peaches. He shook his head no several times when asked if had had anything to eat or drink today. He also shook his head no when asked if he wanted to try to eat or drink something now. He did not repond to other questions. His nurse reported he had not slept and was still experiencing some vomiting and pain as he was the previous day. Will attempt treatment at later time when patient is able to tolerate. Bandar Muñoz MA CCC-SCENIC DESIGNER
--- NOTE | 2019-09-19 10:33 | NUR ---
PATIENT SITTING UP IN BED, EATING LIGHT BREAKFAST TRAY. WILL MONITOR FOR ANY NAUSEA/VOMITING. CALL LIGHT WITHIN REACH.
--- NOTE | 2019-09-19 10:56 | NUR ---
HR REMAINS IN A-FIB. HR RANGING BETWEEN 105-115. WILL CONTINUE TO MONITOR. IVF MAINTAINED PER ORDER. CALL LIGHT WITHIN REACH.
--- NOTE | 2019-09-19 10:59 | NUR ---
IN TO SEE PATIENT.
[2019-09-19 12:00] VITALS: BP 115/76
[2019-09-19 16:00] VITALS: BP 149/89
--- NOTE | 2019-09-19 18:02 | NUR ---
PATIENT C/O SOB. PULSE OX CHECKED AT THIS TIME. POX 93% VIA 4LNC. A-FIB PER CM. HR 100-113. RESPIRATORY PAGED AT THIS TIME FOR BREATHING TREATMENT.
[2019-09-19 20:00] VITALS: BP 123/84
--- NOTE | 2019-09-19 21:00 | NUR ---
SITTING UP AT BEDSIDE USING URINAL HEART RATE 140'S.
[2019-09-20] VITALS: BP 140/89
[2019-09-20 06:40] LABS: BASO % 0.1 % (0.0-1.0); HEMATOCRIT 51.3 % (42.0-52.0); LYMPH % 6.2 % (27.0-41.0); MEAN CELL VOLUME 95.2 fl (80.0-94.0); MEAN CORPUSCULAR HGB 31.2 pg (27.0-31.0); MEAN CORPUSCULAR HGB CONC 32.7 g/dl (33.0-37.0); NEUT # 14.5 10*3/uL (2.3-7.9); NEUT % 87.2 % (47.0-73.0); PLATELET COUNT AUTOMATED 156 10*3/uL (130-400); RED BLOOD COUNT 5.39 10*6/uL (4.50-5.90); RED CELL DISTRI WIDTH 12.5 % (0-14.5); WHITE BLOOD COUNT 16.6 10*3/uL (4.8-10.8)
[2019-09-20 07:07] LABS: BUN 53 mg/dl (7-24); CHLORIDE 87 mmol/L (98-107); CREATININE 1.33 mg/dL (0.70-1.30); POTASSIUM 2.9 mmol/L (3.5-5.1); SODIUM 133 mmol/L (136-145)
--- NOTE | 2019-09-20 07:23 | NUR ---
DR. PUCKETT AWARE OF CO2 OF 42.
[2019-09-20 08:00] VITALS: BP 158/78
--- NOTE | 2019-09-20 08:00 | NUR ---
PT RESTING IN BED. VOICES NO CONCERNS AT THIS TIME. RESPS EASY AND NON LABORED. NO S/S OF DISTRESS NOTED. 4L NC INTACT. VSS. WHITE BOARD UPDATED. POC DISCUSSED W PT. A/O X3. CALL LIGHT WITHIN REACH. BED ALARM INRACT. PT C/O NAUSEA. NS INFUSING W/O INCIDENT
--- NOTE | 2019-09-20 08:30 | NUR ---
POTASSIUM ORDERED. PT UNABLE TO TAKE. CAUSING HIM TO VOMIT. PHYSICIAN NOTIFIED.
--- NOTE | 2019-09-20 09:00 | NUR ---
case management visits with patient, he will be discharged to [facility] when medically stable, case management will follow
--- NOTE | 2019-09-20 11:25 | NUR ---
PHYSICAL THERAPY Patient seen this am 1;1 for therapy visit and was resting supine in bed upon therapist arrival. Patient identified by name / and presented with continuos O2-4L / IV treatment. Student nurse was also present for observation this session as patient reports still feeling a little Nausea. Patient transfers supine to sit EOB MIN A x 1, tolerating several minutes static EOB sit, SBA. Patient also performed several sit to stand transfers, CGA, tolerating < 1 minute static stand without AD prior to quick onset of fatigue. Patient resting Hr 115 bpm, which increased to 132 bpm during standing ex and returned to supine in bed following treatment. Patient remained in bed with call light, tray table, under student nurse direct Supervision. Will continue per POC as tolerated, total treatment time 14 minutes. Tyrell Morton, STEEL ROLLER
--- NOTE | 2019-09-20 12:21 | NUR ---
Updated clinicals faxed to [facility]. Notified them patient is not well enough for discharge today, possibly over the weekend. Patient has been accepted and is ok to discharge when medically stable
[2019-09-20 12:30] VITALS: BP 142/82
--- NOTE | 2019-09-20 13:07 | NUR ---
PT TAKEN OFF FLOOR FOR KUB
--- NOTE | 2019-09-20 14:05 | NUR ---
SPEECH THERAPY Attempted swallow treatment this date x2 however patient reported he did not wish to eat d/t N/V. Will contiue to follow patient in accordance to plan of care. Shireen Delvalle MA [facility]-TREASURY AGENT
[2019-09-20 15:04] LABS: CREATININE 1.48 mg/dL (0.70-1.30); POTASSIUM 3.6 mmol/L (3.5-5.1)
--- NOTE | 2019-09-20 15:12 | NUR ---
DR PHILLIP NOTIFIED OF LACTIC ACID OF 2.8. NO NEW ORDERS AT THIS TIME.
--- NOTE | 2019-09-20 15:26 | NUR ---
PHYSICAL THERAPY CO-SIGN I approve of the Physical Therapy notes written above. Erica Bryant PT
[2019-09-20 16:00] VITALS: BP 140/80
--- NOTE | 2019-09-20 16:00 | NUR ---
PATIENT COMPLAINING OF PAIN FROM KRUN. ICE BAG GIVEN TO PATIENT WHICH HE STATES HELPS.
--- NOTE | 2019-09-20 17:32 | NUR ---
DR PHILLIP NOTIFIED OF LACTIC ACID OD 2.6, NO NEW ORDERS AT THIS TIME.
--- NOTE | 2019-09-20 19:49 | NUR ---
DR. ESCOTO CONTACTED FOR LACTIC ACID OF 3.6, HE WILL REVIEW CHART.
[2019-09-20 20:00] VITALS: BP 150/102
--- NOTE | 2019-09-20 20:19 | NUR ---
ASSUMED CARE OF PATIENT. ASSESSMENT IS COMPLETE. RESPIRATORY IN ROOM. SPO2 87% PATIENT PLACED ON HIGH FLOW NASAL CANNULA AT 6LPM. LUNGS DIMINISHED WITH SCATTERED RHONCHI AND WHEEZE. COUGHING UP BROWN THICK SPUTUM. SPO2 INCREASED TO 92% BREATHING TREATMENT GIVEN. BED IS LOW, LOCKED, AND CALL LIGHT IS WITHIN REACH. WATER PROVIDED AND VOMITED INTO BASIN. WILL CONTINUE TO MONITOR, SEE INTERVENTIONS.
--- NOTE | 2019-09-20 20:36 | NUR ---
PRN PHENERGAN GIVEN FOR NAUSEA AND VOMITING. WILL MONITOR EFFECT. CALL LIGHT IS WITHIN REACH.
[2019-09-20 22:44] LABS: ARTERIAL BLOOD GAS PH 7.472 (7.35-7.45)
--- NOTE | 2019-09-20 23:11 | NUR ---
DR. CERVANTES CALLED, WOULD LIKE O2 TITRATED TO BE ABOVE 92% AND ABG IN AM.
--- NOTE | 2019-09-20 23:17 | NUR ---
DR. CALDERON CALLED NO NEW ORDERS AT THIS TIME.
[2019-09-21] VITALS: BP 118/53; BP 147/73
--- NOTE | 2019-09-21 02:30 | NUR ---
PARTIAL BED BATH GIVEN, BED LINENS CHANGED. PATIENT TOLERATED WELL. BED IS LOW, LOCKED, ALARMED, AND CALL LIGHT IS WITHIN REACH. WILL CONTNIUE TO MONITOR.
--- NOTE | 2019-09-21 02:49 | NUR ---
IV started left hand with #22 angiocath after 0 attempts. The IV site was prepped with Chloraprep. Heparin lock attached. IV solution 0.9 normal saline infusing at 60 mL /hr. Sterile dressing applied. Patient tolerated precedure well. Procedure performed according to [facility] policy & procedure. IV IN RIGHT AC D/C'D ACCORDING TO POLICY AND PROCEDURE. LUIS ALFREDO AGARWAL A
[2019-09-21 06:07] LABS: BASO % 0.2 % (0.0-1.0); EOS % 0.1 % (1.0-4.0); HEMATOCRIT 47.1 % (42.0-52.0); LYMPH # 0.8 10*3/uL (1.3-4.4); LYMPH % 8.9 % (27.0-41.0); MEAN CELL VOLUME 94.2 fl (80.0-94.0); MEAN CORPUSCULAR HGB 30.8 pg (27.0-31.0); MEAN CORPUSCULAR HGB CONC 32.7 g/dl (33.0-37.0); MEAN PLATELET VOLUME 10.3 fl (9.6-12.3); MONO # 0.8 10*3/uL (0.1-1.0); MONO % 8.4 % (3.0-9.0); NEUT # 7.5 10*3/uL (2.3-7.9); NEUT % 81.6 % (47.0-73.0); PLATELET COUNT AUTOMATED 127 10*3/uL (130-400); RED CELL DISTRI WIDTH 12.4 % (0-14.5); WHITE BLOOD COUNT 9.2 10*3/uL (4.8-10.8)
[2019-09-21 06:18] LABS: ALBUMIN 2.9 gm/dl (3.1-4.5); CREATININE 1.46 mg/dL (0.70-1.30); POTASSIUM 3.5 mmol/L (3.5-5.1); TOTAL PROTEIN 6.2 gm/dL (6.4-8.2)
[2019-09-21 07:50] LABS: ABG BASE EXCESS 13.1 mmol/L (-2.0-2.0); ARTERIAL BLOOD GAS PH 7.469 (7.35-7.45)
[2019-09-21 08:00] VITALS: BP 114/69
--- NOTE | 2019-09-21 09:00 | NUR ---
OG TUBE INSERTED AT THIS TIME, PATIENT TOLERATED WELL. PATIENT HAD 300CC EMESIS AT TIME OF INSERTION - GREEN/BROWN GASTRIC CONTENTS. VERIFIED PLACEMENT WITH AUSCULTATION OF AIR BOLUS. HOOKED UP TO LOW INTERMITTENT SUCTION.
[2019-09-21 12:00] VITALS: BP 134/75
--- NOTE | 2019-09-21 15:42 | NUR ---
2PM rounded on patient, sleeping in bed, 96.8, 96(apical), 12, 110/73, 96% on 9L nasal cannula. Initially upon awakening would only open eyes a few times and would fall back asleep. NG tube is stabalized on face. Upon repositioning he woke up and voiced need to urninate, voided 700 cc dark mumtaz urine with a strong odor. Tim any pain or nausea. Mild eructations. Abdomen was distended with hypoactive bowel sounds in all 4 quadrants. LUQ and LLQ had high pitched bowel sounds. Positioned to left side. Shannon Wass SNOVCT
[2019-09-21 16:00] VITALS: BP 94/69
[2019-09-21 17:47] LABS: ABG BASE EXCESS 14.3 mmol/L (-2.0-2.0); ARTERIAL BLOOD GAS PH 7.474 (7.35-7.45)
--- NOTE | 2019-09-21 18:00 | NUR ---
SPOKE WITH PATIENT REGARDING CODE STATUS AND PATIENT DOES NOT WANT INTUBATED. NOTIFIED OF THIS AND ALSO OF ABG RESULTS.
[2019-09-21 20:00] VITALS: BP 139/92
--- NOTE | 2019-09-21 21:32 | NUR ---
PATIENT WAS ORDER BIPAP FOR POSSIBLE RESP DISTRESS. WHEN FOUND PATIENT WAS RESTING IN BED WITH 8LHF, WITH A SPO2 OF 93%. DUE TO THE FACT THAT THE PATIENT HAS A SMALL BOWEL OBSTRUCTION, WITH REOCCURING EMESIS. THE PATIENT DID NOT FEEL COMFORTABLE WEARING THE MASK WITH POSSIBILITY OF ASPIRATING STOMACH CONTENT. BIPAP IS PLACED OUT SIDE OF THE ROOM IN CASE OF AN EMERGENCY. RN AWARE.
[2019-09-22] VITALS: BP 149/93
--- NOTE | 2019-09-22 01:06 | NUR ---
PATIENT UP TO BEDSIDE TO TRY AND MOVE BOWELS. NO BM NOTED. ASSISTED BACK TO BED. CALL LIGHT IS WITHIN REACH.
--- NOTE | 2019-09-22 02:28 | NUR ---
INCONTINENT OF EXTRA LARGE, BROWN/GREEN, MUCOUSY BM WITH SOLID MATTER. BED BATH PROVIDED. BED IS LOW, LOCKED, ALARMED, AND CALL LIGHT IS WITHIN REACH. WILL CONTINUE TO MONITOR.
--- NOTE | 2019-09-22 05:15 | NUR ---
CHART CHECK COMPLETE.
[2019-09-22 06:26] LABS: BASO % 0.1 % (0.0-1.0); EOS % 0.1 % (1.0-4.0); HEMATOCRIT 48.4 % (42.0-52.0); LYMPH # 0.7 10*3/uL (1.3-4.4); LYMPH % 6.6 % (27.0-41.0); MEAN CELL VOLUME 96.6 fl (80.0-94.0); MEAN CORPUSCULAR HGB 31.1 pg (27.0-31.0); MEAN CORPUSCULAR HGB CONC 32.2 g/dl (33.0-37.0); MEAN PLATELET VOLUME 10.2 fl (9.6-12.3); MONO # 0.7 10*3/uL (0.1-1.0); MONO % 6.3 % (3.0-9.0); NEUT # 9.2 10*3/uL (2.3-7.9); PLATELET COUNT AUTOMATED 121 10*3/uL (130-400); RED BLOOD COUNT 5.01 10*6/uL (4.50-5.90); RED CELL DISTRI WIDTH 12.4 % (0-14.5); WHITE BLOOD COUNT 10.7 10*3/uL (4.8-10.8)
[2019-09-22 06:40] LABS: ALBUMIN 2.9 gm/dl (3.1-4.5); ALKALINE PHOSPHATASE 61 U/L (45-117); BUN 62 mg/dl (7-24); CHLORIDE 97 mmol/L (98-107); CREATININE 1.34 mg/dL (0.70-1.30); SGOT/AST 24 IU/L (3-35); SGPT/ALT 23 U/L (12-78); SODIUM 140 mmol/L (136-145); TOTAL PROTEIN 6.4 gm/dL (6.4-8.2)
[2019-09-22 08:00] VITALS: BP 138/76
[2019-09-22 12:00] VITALS: BP 154/76
--- NOTE | 2019-09-22 13:14 | NUR ---
PT MEDICATED WITH IV MORPHINE AT THIS TIME PER ORDER FOR COMPLAINTS OF BACK PAIN 09/12. WILL MONITOR FOR EFFECTIVENESS.
--- NOTE | 2019-09-22 14:14 | NUR ---
PER PATIENT, PAIN MEDICATION HAS BEEN EFFECTIVE -- STATES HE IS COMFORTABLE AT THIS TIME.
[2019-09-22 16:00] VITALS: BP 144/75
--- NOTE | 2019-09-22 17:17 | NUR ---
PATIENT C/O BACK AND ABD PAIN AT THIS TIME 10/13. MEDICATED WITH MORPHINE PER ORDER. WILL MONITOR FOR EFFECTIVENESS.
--- NOTE | 2019-09-22 19:38 | NUR ---
PT ASLEEP IN BED. NO S/S OF DISTRESS NOTED. O2 IN USE VIA NC. OG INTACT. WILL MONITOR. CALL LIGHT IN REACH.
[2019-09-22 20:00] VITALS: BP 153/87
--- NOTE | 2019-09-22 20:54 | NUR ---
PT REQUESTING ICE CHIPS. CALL PLACED TO TO CLARIFY IF THIS IS OKAY. PER , CLAMP OG TUBE OVERNIGHT AND TRY PT ON CLEAR LIQUID DIET WITH OG TUBE STILL IN PLACE. TO SEE PT IN THE AM.
--- NOTE | 2019-09-22 21:03 | NUR ---
OG TUBE CLAMPED PER 'S ORDER. ABOUT 200 CCs OF OUTPUT COLLECTED IN CANNISTER FOR EVENING SHIFT, INCLUDING REMAINDER OF OUTPUT LEFT IN TUBING. OG REMAINS IN PLACE. PATIENT EDUCATED ON CLEAR LIQUID DIET. PT REQUESTING ICE TO MELT IN HIS MOUTH. ICE PROVIDED PER REQUEST. WILL MONITOR. CALL LIGHT IN REACH. BED ALARM INTACT.
--- NOTE | 2019-09-22 21:51 | NUR ---
IV MORPHINE ADMINISTERED FOR C/O PAIN IN BACK & ABDOMEN RATED 8/10. WILL MONITOR EFFECTIVENESS. CALL LIGHT IN REACH.
--- NOTE | 2019-09-22 22:45 | NUR ---
EARLIER MORPHINE APPEARS EFFECTIVE. PT ASLEEP IN BED. RESPIRATIONS EASY. NO S/S OF DISTRESS NOTED. O2 VIA 10L HI FLOW NC IN USE.
[2019-09-23] VITALS: BP 141/90
--- NOTE | 2019-09-23 00:24 | NUR ---
UPDATED ON PATIENT STATUS. PATIENT HAD MULTIPLE COUGHING EPISODES AND PULLED OG TUBE OUT OF PLACE. PT STATES HE FEELS LIKE HE IS GAGGING AND TUBE APPEARED TO SOMEWHAT COILED IN MOUTH. RN UNABLE TO AUSCULTATE FOR PLACEMENT VIA AIR BOLUS, WHEN THIS COULD BE DONE PREVIOUSLY. PER , LEAVE OG OUT FOR NOW. AWARE THAT PT IS C/O ABDOMINAL PAIN AT PRESENT TIME. INSTRUCTED TO GIVE PRN PAIN MEDICATION. AND HE WILL SEE PT IN AM.
--- NOTE | 2019-09-23 00:54 | NUR ---
PT REMAINS ASLEEP. NO S/S OF DISTRESS NOTED. WILL CONTINUE TO MONITOR. CALL LIGHT IN REACH.
--- NOTE | 2019-09-23 01:14 | NUR ---
PT REMAINS ASLEEP IN BED.
--- NOTE | 2019-09-23 02:12 | NUR ---
PT HAD ANOTHER BOWEL MOVEMENT. INCONTINENT IN BRIEF FOR LIQUID STOOL. PT CLEANED UP AND NEW BRIEF/BED LINENS/BIBIANA PROVIDED. PT DENIES ANY NEEDS AT PRESENT TIME. HOB ELEVATED FOR COMFORT. WILL MONITOR. CALL LIGHT IN REACH.
--- NOTE | 2019-09-23 03:23 | NUR ---
PT ASLEEP IN BED. RESPIRATIONS EASY. NO S/S OF DISTRESS NOTED. WILL MONITOR. CALL LIGHT IN REACH. BED ALARM INTACT.
--- NOTE | 2019-09-23 04:35 | NUR ---
EARLIER MEDICATION APPEARS EFFECTIVE. PT ASLEEP IN BED. RESPIRATIONS EASY. NO S/S OF DISTRESS NOTED.
--- NOTE | 2019-09-23 05:10 | NUR ---
HOB ELEVATED AND PT REPOSITIONED FOR COMFORT. PT SWALLOWED PROTONIX WITHOUT DIFFICULTY. WILL MONITOR. CALL LIGHT IN REACH.
[2019-09-23 08:00] VITALS: BP 150/78
--- NOTE | 2019-09-23 08:03 | NUR ---
[facility]. Patient has been accepted and is ok to go when medically stable for discharge.
[2019-09-23 09:23] LABS: HEMATOCRIT 49.2 % (42.0-52.0); MEAN CELL VOLUME 97.4 fl (80.0-94.0); MEAN CORPUSCULAR HGB 31.1 pg (27.0-31.0); MEAN CORPUSCULAR HGB CONC 31.9 g/dl (33.0-37.0); PLATELET COUNT AUTOMATED 134 10*3/uL (130-400); RED BLOOD COUNT 5.05 10*6/uL (4.50-5.90); RED CELL DISTRI WIDTH 12.4 % (0-14.5)
--- NOTE | 2019-09-23 09:30 | NUR ---
PHYSICAL THERAPY Patient was resting comfortably supine in bed this am when approached for therapy and reports feeling weak with increased Nausea. Patient stated he wasn't feeling well enough to participate and requested to attempt later today if possible. Will continue per POC as able. Tyrell Morton, QUILL REAMER
[2019-09-23 09:57] LABS: CHLORIDE 100 mmol/L (98-107); CREATININE 0.94 mg/dL (0.70-1.30); POTASSIUM 3.7 mmol/L (3.5-5.1); SODIUM 141 mmol/L (136-145)
[2019-09-23 09:58] LABS: BUN 35 mg/dl (7-24)
[2019-09-23 10:13] LABS: TOTAL CELLS COUNTED 100 #CELLS
[2019-09-23 10:14] LABS: PLATELET SUFFICIENCY NORMAL (NORMAL)
--- NOTE | 2019-09-23 10:30 | NUR ---
PHYSICAL THERAPY Patient seen this am 1:1 for therapy visit and was supine in bed upon therapist arrival. Patient identified by name / and requested transfer to bedside chair as noelle heatonrocky arrived. Patient presented with continuos O2-10L via NC, reported no new c/o's and recorded resting Spo2 93%, HR 75 bpm. Patient transfers supine to sit EOB with MIN A, needing a few minutes of static EOB sit to collect himself. Patient performed sit to stand transfer, CGA, use of wh walker standing support, then completed SPT to bedside chair, including several forward steps. Patient was very "shaky" on his feet this morning with quick onset of fatigue. Patient recorded SpO2 90%, HR 104 bpm and remained in bedside chair with call light, tray table, telephone and body alarm for safety. Patient attendant arrived to assist with breakfast and will continue per POC as tolerated, total treatment time 13 minutes. Tyrell Morton, JOCKEY'S AGENT
--- NOTE | 2019-09-23 11:17 | NUR ---
PT UP IN RECLINER CHAIR, TOLERATING A CLEAR LIQUID DIET. PT DENIES ANY N/V/D. PT DENIES ANY ABD PAIN/DISCOMFORT. O2 IN USE VIA 10L HIGH-FLOW NC. CONT.PULSE OX MAINTAINED. PULSE OX RANGING BETWEEN 90-94% VIA 10L. RESPIRATORY THERAPIST IN TO ASSESS PATIENT. WILL MONITOR. CALL LIGHT WITHIN REACH.
[2019-09-23 12:00] VITALS: BP 141/84
--- NOTE | 2019-09-23 12:32 | NUR ---
SPEECH THERAPY Attempted follow up treatment this afternoon, however staff present in patient's room while he was receiving breathing treatment. Patient currently on clear liquid diet, with staff in patient's room reporting possible change to previous recommended diet. Will attempt follow up treatment at later time/day as appropriate. Shireen Delvalle MA CCC-INDIRECT SALES REPRESENTATIVE
--- NOTE | 2019-09-23 15:57 | NUR ---
PT REQUESTED IV MORPHINE SLOWLY PER PRN ORDER FOR C/O BACK AND ABD PAIN/CRAMPS. RATES PAIN 8/10. WILL MONITOR EFFECTIVENESS.
[2019-09-23 16:00] VITALS: BP 139/78
--- NOTE | 2019-09-23 16:57 | NUR ---
MORPHINE RELIEVING PAIN PER PT. WILL CONTINUE TO MONTIOR.
--- NOTE | 2019-09-23 18:15 | NUR ---
SPEECH THERAPY Two additional attempts made this afternoon for swallow treatment. Staff again present in room with patient administering medication one one attempt and patient sleeping soundly on second attempt and did not arouse to verbal stimuli. Continue plan of care as appropraite. Shireen Delvalle MA CCC-SALES SUPERVISOR
[2019-09-23 20:00] VITALS: BP 153/93
--- NOTE | 2019-09-23 20:05 | NUR ---
POX ONLY 89-90% ON 10L HI FLOW NC. PT PULLED UP IN BED AND REPOSITIONED FOR COMFORT/IMPROVED BREATHING. POX UP TO 92% AND ABOVE AT THIS TIME.
--- NOTE | 2019-09-23 20:36 | NUR ---
IV MORPHINE ADMINISTERED FOR PATIENT'S C/O BACK PAIN RATED 12/10. PT HAD EPISODE OF URINARY INCONTINENCE. PT CLEANED UP & NEW BRIEF/BIBIANA/BED LINENS PROVIDED. PATIENT PULLED UP REPOSITIONED FOR COMFORT. BED LEFT LOCKED IN LOW POSITION, BED ALARM INTACT, CALL LIGHT IN REACH. HOB ELEVATED AND DRINKS PROVIDED PER REQUEST.
--- NOTE | 2019-09-23 21:30 | NUR ---
EARLIER MORPHINE APPEARS EFFECTIVE. PT ASLEEP IN BED. RESPIRATIONS EASY. NO S/S OF DISTRESS NOTED. POX 92% AND ABOVE. EYES STILL HALF OPEN/ROLLED BACK INTO HEAD, BUT THIS IS USUAL FOR PT. PT EASILY AROUSABLE. WILL CONTINUE TO MONITOR. BED ALARM INTACT, CALL LIGHT IN REACH.
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
[2019-09-24] VITALS: BP 134/59
--- NOTE | 2019-09-24 00:04 | NUR ---
IV MORPHINE ADMINISTERED FOR C/O PAIN IN BACK AND ABDOMEN RATED 8/10. WILL MONITOR EFFECTIVENESS. CALL LIGHT IN REACH.
--- NOTE | 2019-09-24 00:40 | NUR ---
EARLIER MEDICATION APPEARS EFFECTIVE. PT ASLEEP IN BED. RESPIRATIONS EASY. NO S/S OF DISTRESS NOTED. WILL MONITOR. CALL LIGHT IN REACH.
--- NOTE | 2019-09-24 01:06 | NUR ---
HERE TO TALK TO PATIENT REGARDING CODE STATUS.
--- NOTE | 2019-09-24 02:41 | NUR ---
NOTIFIED OF PATIENT'S C/O ABDOMINAL PAIN AND BACK PAIN. MORPHINE NOT DUE UNTIL 399. NEW ORDERS TO FOLLOW.
--- NOTE | 2019-09-24 03:32 | NUR ---
IV SITE TO L HAND PAINFUL/LEAKING. IV SITE REMOVED & DSD APPLIED. NEW IV SITE INITIATED IN RAC PER POLICY. IV TORADOL ADMINISTERED AT THIS TIME PER ONE TIME ORDER. PT RATING PAIN IN BACK AND ABDOMEN RATED 7/10. WILL MONITOR EFFECTIVENESS. CALL LIGHT IN REACH.
--- NOTE | 2019-09-24 04:34 | NUR ---
EARLIER TORADOL INEFFECTIVE PER PT. IV MORPHINE GIVEN PER PRN ORDER. WILL MONITOR. CALL LIGHT IN REACH.
--- NOTE | 2019-09-24 05:15 | NUR ---
PT STATES EARLIER MEDICATION EFFECTIVE. RATES ABD PAIN 3/10. BACK PAIN IS STILL 6/10. WILL MONITOR. CALL LIGHT IN REACH.
[2019-09-24 06:53] LABS: BUN 20 mg/dl (7-24); CHLORIDE 97 mmol/L (98-107); CREATININE 0.76 mg/dL (0.70-1.30); POTASSIUM 3.3 mmol/L (3.5-5.1); SODIUM 136 mmol/L (136-145)
[2019-09-24 06:54] LABS: MEAN CELL VOLUME 95.5 fl (80.0-94.0); MEAN CORPUSCULAR HGB 31.4 pg (27.0-31.0); MEAN CORPUSCULAR HGB CONC 32.9 g/dl (33.0-37.0); MEAN PLATELET VOLUME 10.2 fl (9.6-12.3); PLATELET COUNT AUTOMATED 111 10*3/uL (130-400); RED CELL DISTRI WIDTH 12.4 % (0-14.5)
[2019-09-24 07:22] LABS: PLATELET SUFFICIENCY LOW (NORMAL); TOTAL CELLS COUNTED 100 #CELLS
--- NOTE | 2019-09-24 08:29 | NUR ---
Patient updated clinicals faxed to [facility] for review. patient is accepted and ok to go when medically stable for discharge.
--- NOTE | 2019-09-24 10:24 | NUR ---
PHYSICAL THERAPY Patient was resting comfortably supine in bed this morning when approached for therapy visit and reports increased abdominal pain. Patient states he wasn't able to eat anything and did not feel well enough to have therapy at this time. Will continue per POC as able. Tyrell Morton, YARD PIPE GRADER
--- NOTE | 2019-09-24 11:27 | NUR ---
Road Worker in to see patient. Discussed discharge planning. [facility]. Discussed LTAC facilities and he said "No absolutely not, I want to go where my is." Explained at an LTAC he would receive 24 hour intensive care from nurses, physicians, and therapy and he continues to refuse. exercise planner notified.
[2019-09-24 12:00] VITALS: BP 128/63
--- NOTE | 2019-09-24 12:42 | NUR ---
Notified Dr. Mehta of patient's refusal of LTAC.
[2019-09-24 16:00] VITALS: BP 138/79
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
--- NOTE | 2019-09-24 16:17 | NUR ---
INFORMED THAT PATIENT WOULD LIKE TO SEE HIM REGARDING A LUMP ON HIS NECK THAT IS NEW FROM YESTERDAY.
[2019-09-24 20:00] VITALS: BP 144/74
[2019-09-25] VITALS: BP 157/95
--- NOTE | 2019-09-25 00:44 | NUR ---
PT REQUESTING SOMETHING FOR SLEEP. NOTIFIED. NEW ORDER RECEIVED FOR 1X DOSE 15MG RESTORIL NOW.
--- NOTE | 2019-09-25 01:06 | NUR ---
PO RESTORIL ADMINISTERED PER ONE TIME ORDER FOR C/O INSOMNIA. WILL MONITOR. CALL LIGHT IN REACH.
--- NOTE | 2019-09-25 03:21 | NUR ---
END USER CONSULTANT CALLED, STATED PATIENT'S PULSE OX OFF. RN IN ROOM. PT FOUND WITH OXYGEN OUT OF NOSE. POX REAPPLIED, POX 86-89% AT THIS TIME. RN ENCOURAGED PT TO TAKE DEEP BREATHS WHILE HI FLOW NC IN PLACE. RESPIRATORY AT BEDSIDE. O2 INCREASED TO 12L HI FLOW. PATIENT POX STILL REMAINING 89-91% AT THIS TIME. PT IS DROWSY. EASILY AROUSABLE TO VERBAL/TACTILE STIMULI. ORIENTED X3. EYES CONTINUE TO ROLL IN BACK OF HEAD. PT REPEATEDLY STATES "WHAT'S ALL THIS FOR." RN AND RT EXPLAINED SITUATION AND PLAN OF CARE. RT OFFERED BIPAP. PT AGREES TO TRY. PT HAD REFUSED MULTIPLE TIMES OVER THE PAST FEW DAYS. PT HAS NOT HAD ANY EMESIS FOR THIS RN OVER THE PAST 3 NIGHTS. PT STATES HE IS "SPITTING UP" BUT THIS IS THICK, CHRISTINE SPUTUM THAT THE PT BRINGS UP WITH COUGHING FITS. RT AWARE. BIPAP TO BE APPLIED PER ORDER. NOTIFIED.
--- NOTE | 2019-09-25 04:06 | NUR ---
03:20 PT ON 10 L HFNC. PT HAD TAKEN OFF O2. SPO2 DROPPED TO THE MID 80'S. SPO2 APPROX 88-89% ON 10L O2 INCREASED TO 12 L. SPO2 INCREASED TO 92%. PT AGREED TO BIPAP. PT HAS NOT HAD ANY EMESIS X 3 DAYS PER RN. RESPS REGULAR AND UNLABORED PRIOR TO BIPAP. PT AAO X 3 BUT SLEEPY DUE TO MEDICATION. BIPAP INITIATED. PT TOLERATING WELL. RN AWARE.
--- NOTE | 2019-09-25 04:17 | NUR ---
PT PULLED BIPAP OFF AND CONTINUES TO TRY TO PULL CONTINOUS POX OFF. PT STATES HE IS NOT WEARING BIPAP ANY LONGER. BIPAP REMOVED. 12L HI FLOW NC APPLIED. PT PULLED UP AND REPOSITONED IN BED WITH HOB ELEVATED. POX 92%. WILL MONITOR. CALL LIGHT IN REACH. BED ALARM INTACT.
[2019-09-25 06:04] LABS: BUN 13 mg/dl (7-24); CHLORIDE 95 mmol/L (98-107); CREATININE 0.82 mg/dL (0.70-1.30); POTASSIUM 3.5 mmol/L (3.5-5.1); SODIUM 137 mmol/L (136-145)
[2019-09-25 06:25] LABS: HEMATOCRIT 43.3 % (42.0-52.0); MEAN CELL VOLUME 94.5 fl (80.0-94.0); MEAN CORPUSCULAR HGB 31.2 pg (27.0-31.0); PLATELET COUNT AUTOMATED 122 10*3/uL (130-400); RED BLOOD COUNT 4.58 10*6/uL (4.50-5.90); RED CELL DISTRI WIDTH 12.2 % (0-14.5); WHITE BLOOD COUNT 19.4 10*3/uL (4.8-10.8)
--- NOTE | 2019-09-25 06:28 | NUR ---
PT INCONTINENT OF URINE. PT CLEANED UP. ASSISTED TO CHAIR. BED LINENS CHANGED. PT REMAINS SITTING UP IN CHAIR WATCHING TV. BODY ALARM INTACT. CALL LIGHT IN REACH.
[2019-09-25 07:26] LABS: TOTAL CELLS COUNTED 100 #CELLS
[2019-09-25 07:30] LABS: PLATELET SUFFICIENCY LOW (NORMAL)
--- NOTE | 2019-09-25 07:33 | NUR ---
PT. DECLINES USE OF BIPAP.
[2019-09-25 09:53] LABS: ABG BASE EXCESS 9.8 mmol/L (-2.0-2.0); ARTERIAL BLOOD GAS PH 7.541 (7.35-7.45)
--- NOTE | 2019-09-25 10:40 | NUR ---
Gasfitter in to see patient. No new needs or request at this time. When medically stable he will be [facility]. urban and regional planner following.
[2019-09-25 12:00] VITALS: BP 144/73
--- NOTE | 2019-09-25 12:11 | NUR ---
NEW ORDERS PER DR. CERVANTES FOR BIPAP, PT IS ON BIPAP AT THIS TIME.
--- NOTE | 2019-09-25 13:50 | NUR ---
PHYSICAL THERAPY Patient was having a blood gas test performed this pm when approached for therapy visit and per discussion with Respiratory Therapist, was informed of 61% O2 during test. Patient was left on Bi Pap by Respiratory as Therapist was advised to hold treatment pending review of blood gas test by physician. Will continue per POC as able. Tyrell Morton, DRAWING FRAME TENDER
[2019-09-25 13:54] LABS: ABG BASE EXCESS 11.2 mmol/L (-2.0-2.0); ARTERIAL BLOOD GAS PH 7.549 (7.35-7.45)
--- NOTE | 2019-09-25 14:27 | NUR ---
KEEP PT. ON BIPAP MUCH POSSIBLE, PER DR. CERVANTES.
[2019-09-25 16:00] VITALS: BP 129/65
[2019-09-25 20:00] VITALS: BP 168/72
--- NOTE | 2019-09-25 20:00 | NUR ---
ASSUMED CARE OF PATIENT. ASSESSMENT IS COMPLETE. NO C/O OR S/S OF DISTRESS NOTED AT THIS TIME. BED IS LOW, LOCKED, ALARMED, AND CALL LIGHT IS WITHIN REACH. WILL CONTINUE TO MONITOR, SEE INTERVENTIONS.
--- NOTE | 2019-09-25 23:30 | NUR ---
Pt placed on BiPap 14/10 and FiO2 50% Alarms on and audible.
[2019-09-26] VITALS: BP 162/88
--- NOTE | 2019-09-26 | NUR ---
PATIENT ON BIPAP FOR ABOUT 3 HOURS. PLACED BACK ON 12L HIGH FLOW NASAL CANNULA. CALL LIGHT IS WITHIN REACH.
--- NOTE | 2019-09-26 01:00 | NUR ---
Pt came off BiPap around midnight per the nurse. Pt is back on his 12L HFNC.
--- NOTE | 2019-09-26 01:54 | NUR ---
PRN MORPHINE GIVEN FOR C/O BACK PAIN. CALL LIGHT IS WITHIN REACH, WILL MONITOR EFFECT.
--- NOTE | 2019-09-26 02:30 | NUR ---
PRN MORPHINE EFFECTIVE. CALL LIGHT IS WITHIN REACH.
--- NOTE | 2019-09-26 05:22 | NUR ---
PATIENT AWAKENS EASILY FOR ADMINSTRATION OF 0600 MEDICATIONS. PRN MORPHINE GIVEN FOR C/O BACK PAIN. CALL LIGHT IS WITHIN REACH. WILL MONITOR EFFECT.
--- NOTE | 2019-09-26 06:00 | NUR ---
PRN MORPHINE EFFECTIVE. PATIENT SLEEPING. CALL LIGHT IS WITHIN REACH.
[2019-09-26 06:09] LABS: BUN 9 mg/dl (7-24); CHLORIDE 97 mmol/L (98-107); CREATININE 0.72 mg/dL (0.70-1.30); POTASSIUM 3.2 mmol/L (3.5-5.1); SODIUM 136 mmol/L (136-145)
[2019-09-26 06:26] LABS: HEMATOCRIT 41.6 % (42.0-52.0); MEAN CELL VOLUME 94.1 fl (80.0-94.0); MEAN CORPUSCULAR HGB CONC 32.9 g/dl (33.0-37.0); PLATELET COUNT AUTOMATED 94 10*3/uL (130-400); RED BLOOD COUNT 4.42 10*6/uL (4.50-5.90); RED CELL DISTRI WIDTH 12.7 % (0-14.5); WHITE BLOOD COUNT 15.4 10*3/uL (4.8-10.8)
[2019-09-26 07:00] LABS: PLATELET SUFFICIENCY LOW (NORMAL); TOTAL CELLS COUNTED 100 #CELLS
[2019-09-26 08:00] VITALS: BP 112/60
--- NOTE | 2019-09-26 08:03 | NUR ---
Updated clinicals faxed to [facility] for review. patient has previously been accepted and is ok to go when medically stable for discharge.
--- NOTE | 2019-09-26 10:09 | NUR ---
PT C/O OF GENRALIZED PAIN, PRN MORPGINE GIVEN PAIN 08/13, PT AGREED TO GO ON BIPAP, PT PLACED IN BIPAP TA THIS TIME AND TOLERATING WELL RESTING IN BED WIH EYES CLOSED
[2019-09-26 12:00] VITALS: BP 115/60
--- NOTE | 2019-09-26 12:49 | NUR ---
SPEECH PATHOLOGY Orders for MBS received with test scheduled for 9:15 this am. Patient is known to this dept. as he had previously been receiving dysphagia services and was discharged earlier this week due to tolerating present diet with use of safe swallow precautions. Patient has been displaying increasing respiratory distress, increased need for [address] shows prominent infiltrates in right upper and lower lobes as well as left upper, likely representing pneumonia. Clinician arrived on x-ray suite and was informed that patient refused MBS, stating he has had several of these in the past and does not want to participate in another. Due to refusal, MBS was not able to be completed at this time. Thank you for this referral, this dept. will be available for reconsult as needed. DEMETRA POWELL MSCCC-SUPPORT ARCHITECT
--- NOTE | 2019-09-26 14:15 | NUR ---
PHYSICAL THERAPY Patient seen this pm 1:1 for therapy visit and was supine in bed upon therapist arrival. Patient identified by name / and presented with continuos O2 via NC. Patient recorded resting SpO2 96%, HR 85 bpm prior to transfering supine to sit EOB with MOD A x 1. Patient experienced several coughing episodes during static EOB sit tolerance x 10 minutes, including several light brown, blood tinged spetum deposits into small emesis basin. Patient recorded seated SpO2 95%, HR 96 bpm following treatment and needed v/c for both improved seated posture / purse lip breathing technique. Patient remained EOB sit under direct Supervision of 2 student nurses and student nursing Department Supervisor for patient care. Will continue per POC as tolerated, total treatment time 14 minutes. Tyrell Morton, MEDICAL ACCOUNTING CLERK
--- NOTE | 2019-09-26 15:36 | NUR ---
PT PLACED IN BIPAP AND TOLERATING WELL AT THIS TIME
--- NOTE | 2019-09-26 15:49 | NUR ---
pt instructed on proper use of I.S. and Flutter valve. He demonstrated proper technique and had no questions.
[2019-09-26 16:00] VITALS: BP 124/69
--- NOTE | 2019-09-26 16:29 | NUR ---
PT REQUESTED TO COME OFF BIPAP AT THIS TIME, INFROMED HIM IT WAS LESS THAN AN HOUR AGO IT WAS APPLIED AND THE BENEFITS OF KEEPING IT ON. REQUESTING FOR REMOVAL, BIPAP REMOVED AND NC APPLIED PER REQUEST.
[2019-09-26 20:00] VITALS: BP 158/96
--- NOTE | 2019-09-26 21:35 | NUR ---
PRN MOPRHINE GIVEN FOR PT COMPLAINTS OF PAIN ALL OVER ESPECIALLY IN THROAT AND RIBS FROM COUGHING. RATING IT 10/10. CALL LIGHT WITHIN REACH, WILL MONITOR
--- NOTE | 2019-09-26 22:30 | NUR ---
PATIENT STATED THAT MORPHINE HELPED A LITTLE. ENCOURAGED PATIENT TO ASK FOR MORPHINE IF HE NEEDS HE IS ABLE TO HAVE IT EVERY 4 HOURS
--- NOTE | 2019-09-26 23:23 | NUR ---
PRN CEPACOL GIVEN FOR PT COMPLAINTS OF A RAW AND SORE THROAT CALL LIGHT WITHIN REACH, WILL MONITOR
[2019-09-27] VITALS: BP 132/83
--- NOTE | 2019-09-27 00:26 | NUR ---
Pt will not go on his BiPap at this time.
--- NOTE | 2019-09-27 01:43 | NUR ---
PRN MORPHINE GIVEN FOR PT COMPLAINTS OF PAIN IN THE CHEST FROM COUGHING AND THROAT. RATING IT 6/10. CALL LIGHT WITHIN REACH, WILL MONITOR
--- NOTE | 2019-09-27 02:30 | NUR ---
PATIENT PLACED ON BIPAP AT THIS TIME. PULSE OX DIPPING TO 88%-92% ON 12L HIGH FLOW. ENCOURAGED PATIENT TO KEEP THE BIPAP ON FOR LONG POSSIBLE. PATIENT NOW 94% ON BIPAP
--- NOTE | 2019-09-27 02:36 | NUR ---
24 HR chart check completed.
--- NOTE | 2019-09-27 03:24 | NUR ---
PATIENT OFF BIPAP AT THIS TIME AND PLACED BACK ON 12L HIGH FLOW. PATIENT STATES IT MAKES HIM TOO DRY TO KEEP WEARING IT. PULSE OX 93%
--- NOTE | 2019-09-27 03:45 | NUR ---
PATIENT LAYING IN BED IN RIGHT SIDE CURLED UP IN A BALL SAYING THAT HE'S IN PAIN AND MISERABLE. NOTIFIED PATIENT THAT HE COULD NOT HAVE ANY MORE PAIN MEDICATION UNTIL 529, BUT WILL ASK THE DOCTOR FOR SOMETHING ELSE. NOTIFIED DR. NEWBERRY AT THIS TIME. ORDER RECIEVED FOR TORADOL AND A LIDOCAINE PATCH
--- NOTE | 2019-09-27 03:49 | NUR ---
SPOKE WITH PATIENT AGAIN ABOUT HOSPICE OR CHANGING HIS CODE STATUS. PATIENT STATED THAT WHEN HOSPICE GETS INVOLVED EVERYTHING SEEMS TO GET MESSED UP AND HE'S A DISABLED AND DOESN'T WANT ANTHING GETTING MESSED UP AGAIN. PATIENT STATED HE NEEDS TO TALK TO SOMEONE ABOUT HIS INSURANCE BECAUSE HE'S WORRIED HOSPICE WOULD MESS THINGS UP
--- NOTE | 2019-09-27 03:56 | NUR ---
NOTIFIED DR. NEWBERRY THAT THE MAJORITY OF PATIENTS PAIN IS IN THE FRONT OF HIS RIBS AND AM UNABLE TO PUT LIDOCAINE PATCH ON. HE STATED TO MAKE IT PRN IN CASE THERE IS A PLACE THAT WE MAY BE ABLE TO PUT IT LATER
--- NOTE | 2019-09-27 05:55 | NUR ---
PRN MORPHINE GIVEN FOR PT COMPLAINTS OF PAIN "ALL OVER" RATING IT 10/10. CALL LIGHT WITHIN REACH, WILL MONITOR
[2019-09-27 06:37] LABS: BASO % 0.1 % (0.0-1.0); EOS # 0.3 10*3/uL (0.0-0.4); EOS % 2.4 % (1.0-4.0); HEMATOCRIT 37.5 % (42.0-52.0); LYMPH # 0.7 10*3/uL (1.3-4.4); LYMPH % 5.7 % (27.0-41.0); MEAN CELL VOLUME 94.7 fl (80.0-94.0); MEAN CORPUSCULAR HGB 31.6 pg (27.0-31.0); MEAN CORPUSCULAR HGB CONC 33.3 g/dl (33.0-37.0); MEAN PLATELET VOLUME 10.2 fl (9.6-12.3); MONO # 0.3 10*3/uL (0.1-1.0); MONO % 2.9 % (3.0-9.0); NEUT # 10.2 10*3/uL (2.3-7.9); NEUT % 86.6 % (47.0-73.0); PLATELET COUNT AUTOMATED 72 10*3/uL (130-400); RED BLOOD COUNT 3.96 10*6/uL (4.50-5.90); RED CELL DISTRI WIDTH 12.8 % (0-14.5); WHITE BLOOD COUNT 11.8 10*3/uL (4.8-10.8)
[2019-09-27 06:57] LABS: BUN 9 mg/dl (7-24); CHLORIDE 96 mmol/L (98-107); CREATININE 0.67 mg/dL (0.70-1.30); SODIUM 135 mmol/L (136-145)
--- NOTE | 2019-09-27 07:35 | NUR ---
PT MEDICATED WITH PRN CEPACOL FOR C/O COUGH AND SORE THROAT. WILL CONTINUE TO MONITOR.
[2019-09-27 08:00] VITALS: BP 130/60
--- NOTE | 2019-09-27 08:31 | NUR ---
PT REPORTS SOME RELIEF OF SORE THROAT AND COUGH. PRN CEPACOL EFFECTIVE.
--- NOTE | 2019-09-27 10:39 | NUR ---
Patient is requesting Palliative Care. Since patient was with [facility] ([facility] resident) the Palliative order was faxed to [facility] new [facility] care called [facility]. Waiting on return call.
--- NOTE | 2019-09-27 11:30 | NUR ---
Received call back from [facility] through [facility]. They stated the only time they will connect with a patient is once they are discharged to home only. They will not see patient in the hospital or at a rehab facility. She reminded me that patient was on [facility] prior to being admitted in the hospital. She stated to let them know when he discharges home.
[2019-09-27 12:00] VITALS: BP 132/64
--- NOTE | 2019-09-27 13:51 | NUR ---
PHYSICAL THERAPY CO-SIGN I approve of the Physical Therapy notes written above. Erica Bryant PT
[2019-09-27 16:00] VITALS: BP 178/70
--- NOTE | 2019-09-27 17:20 | NUR ---
CONSULT CALLED TO [facility]OS ANSWERING SERVICE.
--- NOTE | 2019-09-27 19:55 | NUR ---
CALLED DR. NEWBERRY TO COME & SPEAK TO PATIENT ABOUT PATIENT'S CODE STATUS. PT. STATES THAT HE WANTS EVERYTHING DONE.
[2019-09-27 20:00] VITALS: BP 141/65
--- NOTE | 2019-09-27 20:00 | NUR ---
GOWN CHANGED; INCONTINENT CARE PROVIDED. PT'S AROUSES WITH VERBAL/TACTILE STIMULATION. PULSE OX 90% ON 12 LITERS HIGH FLOW 02. RESPIRATIONS 40 A MINUTE. CONDITION POOR. WAITING FOR DR. NEWBERRY TO COME TO SEE PATIENT. CALL LIGHT WITHIN REACH.
--- NOTE | 2019-09-27 22:03 | NUR ---
RECTAL TEMPERATURE 101.3. WILL CONTINUE TO MONITOR.
--- NOTE | 2019-09-27 22:38 | NUR ---
REFUSES COUGH MEDICATION. TOOK OTHER MEDICATIONS CRUSHED IN APPLESAUCE. CONTINUES WITH A PRODUCTIVE COUGH FOR THICK BLOOD TINGED SPUTUM. HOB ELEVATED; 02 INTACT. CONDITION GUARDED. WILL CONTINUE TO MONITOR. CALL LIGHT WITHIN REACH.
--- NOTE | 2019-09-27 22:49 | NUR ---
PATIENT REFUSING BIPAP
--- NOTE | 2019-09-27 23:30 | NUR ---
RESTING IN BED WITH 02 INTACT. CONDITION REMAINS GUARDED. CALL LIGHT WITHIN REACH.
[2019-09-28] VITALS: BP 126/60
--- NOTE | 2019-09-28 02:29 | NUR ---
ASKED PATIENT IF HE WOULD LIKE TO BE PUT ON THE BIPAP. CALLED RESPIRATORY.
--- NOTE | 2019-09-28 03:15 | NUR ---
PATIENT OFF BIPAP. 12L HF NASAL CANNULA IN USE
--- NOTE | 2019-09-28 05:30 | NUR ---
PT.'S 02 REAPPLIED.
--- NOTE | 2019-09-28 06:00 | NUR ---
PULSE OX 94-96% AT THIS TIME; HEART RATE IN THE 60'S. CONDITION REMAINS GUARDED. CALL LIGHT WITHIN REACH.
[2019-09-28 06:11] LABS: HEMATOCRIT 42.2 % (42.0-52.0); MEAN CELL VOLUME 93.6 fl (80.0-94.0); MEAN CORPUSCULAR HGB 31.3 pg (27.0-31.0); MEAN CORPUSCULAR HGB CONC 33.4 g/dl (33.0-37.0); MEAN PLATELET VOLUME 9.9 fl (9.6-12.3); PLATELET COUNT AUTOMATED 66 10*3/uL (130-400); RED BLOOD COUNT 4.51 10*6/uL (4.50-5.90); RED CELL DISTRI WIDTH 12.7 % (0-14.5); WHITE BLOOD COUNT 16.8 10*3/uL (4.8-10.8)
[2019-09-28 06:30] LABS: CHLORIDE 97 mmol/L (98-107); POTASSIUM 3.4 mmol/L (3.5-5.1); SODIUM 133 mmol/L (136-145)
[2019-09-28 06:40] LABS: ALBUMIN 1.8 gm/dl (3.1-4.5); ALKALINE PHOSPHATASE 82 U/L (45-117); BUN 8 mg/dl (7-24); CREATININE 0.73 mg/dL (0.70-1.30); SGOT/AST 21 IU/L (3-35); SGPT/ALT 29 U/L (12-78); TOTAL PROTEIN 5.4 gm/dL (6.4-8.2)
[2019-09-28 07:07] LABS: ATYPICAL LYMPHS 1 % (0-0); PLATELET SUFFICIENCY LOW (NORMAL); TOTAL CELLS COUNTED 100 #CELLS
[2019-09-28 08:00] VITALS: BP 114/62
[2019-09-28 11:20] LABS: ARTERIAL BLOOD GAS PH 7.523 (7.35-7.45)
[2019-09-28 12:00] VITALS: BP 122/82
--- NOTE | 2019-09-28 15:17 | NUR ---
PATIENT REFUSED BI-PAP AT THIS TIME.
--- NOTE | 2019-09-28 15:56 | NUR ---
LIDODERM PATCH PLACE TO RT SHOLDER FOR C/O PAIN. WILL MONITOR.
[2019-09-28 16:00] VITALS: BP 118/53
--- NOTE | 2019-09-28 19:45 | NUR ---
PT. EATING WITH HOB DOWN; ELEVATED HOB FOR PATIENT. PT. STATING THAT HE DOESN'T WANT THE HOB ELEVATED. INFORMED PATIENT OF IMPORTANCE OF HOB BEING ELEVATED. PT. VERBALIZED UNDERSTANDING BUT UNHAPPY ABOUT IT. 02 REMAINS INTACT. CALL LIGHT WITHIN REACH.
[2019-09-28 20:00] VITALS: BP 132/65
--- NOTE | 2019-09-28 20:35 | NUR ---
CALLED DR. NEWBERRY PERTAINING TO PATIENT HAVE A 17 RUN OF [facility].
--- NOTE | 2019-09-28 20:49 | NUR ---
DR. NEWBERRY CALLED PERTAINING TO PATIENT REFUSING TO WEAR THE BIPAP.
[2019-09-28 21:09] LABS: ABG BASE EXCESS 6.9 mmol/L (-2.0-2.0); ARTERIAL BLOOD GAS PH 7.543 (7.35-7.45)
[2019-09-28 21:14] LABS: BUN 7 mg/dl (7-24); CHLORIDE 98 mmol/L (98-107); CREATININE 0.67 mg/dL (0.70-1.30); POTASSIUM 3.1 mmol/L (3.5-5.1); SODIUM 134 mmol/L (136-145)
[2019-09-29] VITALS: BP 135/63
--- NOTE | 2019-09-29 01:30 | NUR ---
INCONTINENT OF BM; INCONTINENT CARE PROVIDED. PLACED BACK ON BIPAP PER PT'S REQUEST.
--- NOTE | 2019-09-29 03:15 | NUR ---
REQUESTING TO BE PUT BACK ON THE BIPAP; STATES THAT HE FEELS THOUGH HE IS SUCKING FOR AIR. RESPIRATORY CALLED & PLACED PATIENT BACK ON BIPAP.
--- NOTE | 2019-09-29 04:00 | NUR ---
OFF BIPAP AT THIS TIME & ON 02 HIGH FLOW 12 LITERS. PULSE OX 90'S. CONDITION REMAINS GUARDED. DR. NEWBERRY AWARE.
--- NOTE | 2019-09-29 06:00 | NUR ---
IV started right forearm with # protective cath after 1 attempts. Site prepped with Chloroprep. Sterile dressing applied. Patient tolerated procedure well. IV infusing at cc/hr. GIRMA BETANCUR
--- NOTE | 2019-09-29 06:20 | NUR ---
PULSE OX 94% ON 12 LITERS HIGH FLOW. CALL LIGHT WITHIN REACH.
[2019-09-29 06:38] LABS: HEMATOCRIT 37.6 % (42.0-52.0); MEAN CELL VOLUME 92.8 fl (80.0-94.0); MEAN CORPUSCULAR HGB 30.9 pg (27.0-31.0); MEAN CORPUSCULAR HGB CONC 33.2 g/dl (33.0-37.0); MEAN PLATELET VOLUME 10.6 fl (9.6-12.3); PLATELET COUNT AUTOMATED 61 10*3/uL (130-400); RED BLOOD COUNT 4.05 10*6/uL (4.50-5.90); RED CELL DISTRI WIDTH 12.4 % (0-14.5); WHITE BLOOD COUNT 13.6 10*3/uL (4.8-10.8)
[2019-09-29 06:53] LABS: ALBUMIN 1.6 gm/dl (3.1-4.5); ALKALINE PHOSPHATASE 73 U/L (45-117); BUN 7 mg/dl (7-24); CHLORIDE 98 mmol/L (98-107); CREATININE 0.61 mg/dL (0.70-1.30); SGOT/AST 23 IU/L (3-35); SGPT/ALT 23 U/L (12-78); SODIUM 135 mmol/L (136-145); TOTAL PROTEIN 5.3 gm/dL (6.4-8.2)
[2019-09-29 07:42] LABS: PLASMA CELL 1 % (0-0); PLATELET SUFFICIENCY LOW (NORMAL); TOTAL CELLS COUNTED 100 #CELLS
[2019-09-29 08:00] VITALS: BP 140/62
--- NOTE | 2019-09-29 11:25 | NUR ---
PATIENT PLACED ON BI-PAP 17/10, 50%. PULSE OX 92%.
[2019-09-29 12:00] VITALS: BP 100/61
--- NOTE | 2019-09-29 13:39 | NUR ---
NOTIFIED THAT PT IS REQUESTING TO GO TO THE OR IN [place] MAKE ARRANGEMENTS ON THE WEEKEND
[2019-09-29 16:00] VITALS: BP 117/54
[2019-09-29 18:07] LABS: HLA CLASS 1 ANTIBODY Negative (Negative); IIb/IIIa ANTIBODY Negative (Negative); Ia/IIa ANTIBODY Negative (Negative); Ib/IX ANTIBODY Negative (Negative)
[2019-09-29 20:00] VITALS: BP 138/68
--- NOTE | 2019-09-29 22:19 | NUR ---
PATIENT REFUSED TO TAKE PILLS IN APPLESAUCE PATIENT SAID HE IS FINE IF HE TAKES 2 AT A TIME. PATIENT WAS SAT STRAIGHT UP IN BED AND TOOK PILL FINE. PATIENT DID REFUSE HIS ROBITUSSIN SAID IT LONG .
--- NOTE | 2019-09-29 23:36 | NUR ---
PATIENT REFUSING TO WEAR BIPAP AT THIS TIME. 12 HF CANNULA IN USE
[2019-09-30] VITALS: BP 147/89
[2019-09-30 05:30] LABS: ALBUMIN 1.5 gm/dl (3.1-4.5); BUN 6 mg/dl (7-24); CHLORIDE 100 mmol/L (98-107); CREATININE 0.54 mg/dL (0.70-1.30); SGOT/AST 36 IU/L (3-35); SGPT/ALT 29 U/L (12-78); SODIUM 136 mmol/L (136-145)
[2019-09-30 05:32] LABS: ALKALINE PHOSPHATASE 77 U/L (45-117); TOTAL PROTEIN 5.3 gm/dL (6.4-8.2)
[2019-09-30 06:14] LABS: BASO % 0.2 % (0.0-1.0); EOS # 0.2 10*3/uL (0.0-0.4); EOS % 1.4 % (1.0-4.0); HEMATOCRIT 37.2 % (42.0-52.0); LYMPH % 7.6 % (27.0-41.0); MEAN CELL VOLUME 95.1 fl (80.0-94.0); MEAN CORPUSCULAR HGB 30.9 pg (27.0-31.0); MEAN CORPUSCULAR HGB CONC 32.5 g/dl (33.0-37.0); MEAN PLATELET VOLUME 10.9 fl (9.6-12.3); MONO # 0.3 10*3/uL (0.1-1.0); MONO % 2.5 % (3.0-9.0); NEUT # 10.9 10*3/uL (2.3-7.9); NEUT % 87.4 % (47.0-73.0); PLATELET COUNT AUTOMATED 77 10*3/uL (130-400); RED BLOOD COUNT 3.91 10*6/uL (4.50-5.90); RED CELL DISTRI WIDTH 12.8 % (0-14.5); WHITE BLOOD COUNT 12.5 10*3/uL (4.8-10.8)
--- NOTE | 2019-09-30 07:27 | NUR ---
PATIENT CURRENTLY OFF BIPAP, ON HFNC AT 12L/M. SPO2 93%, HR 82, PATIENT DOES NOT WANT TO GO ON BIPAP AT THIS TIME.
--- NOTE | 2019-09-30 07:30 | NUR ---
PT SITTING UP IN BED. RESPS SLIGHTY LABORED. NO IMMMEDIATE S/S OF DISTRESS NOTED. VSS. WHITE BOARD UPDATED. POC DISCUSSED W PT. BED ALARM ON. CALL LIGHT WITHIN REACH. 12L HFNC INTACT. PT VERY SOB W MINIMAL EXERTION. ABLE TWO SPEAK ABOUT 5 WORDS AT A TIME. PRODUCTIVE HARSH COUGH NOTED WITH BLOOD TINGED SPUTUM. PT UPSET STATING HE DOES NOT WANT TO HERE. HE WANTS TO BE TRANSFERRED TO THE [facility]. EXPLAINED TO PT THAT I WOULD CONTACT CASE MANGEMENT REGARDING THIS TO FOLLOW THROUGH WITH HIS WISHES. A/O X3. WILL CONTINUE TO MONITOR CLOSELY.
[2019-09-30 08:00] VITALS: BP 137/75
--- NOTE | 2019-09-30 08:00 | NUR ---
PT REFUSING HEART MONITOR. STATES HE IS LEAVING.
--- NOTE | 2019-09-30 08:17 | NUR ---
PT C/O "ALL OVER" 06/13 ACHING CHRONIC PAIN. MEDICATED W TYLENOL. WILL CONTINUE TO MONITOR FOR RELIEF. STATES HE WANTS TO GO TO [facility]CASE MANAGEMENT CALLED. SITTING IN BED. BED ALARM ON. CALL LIGHT WITHIN REACH.
--- NOTE | 2019-09-30 08:32 | NUR ---
CALLED INTO PTS ROOM. STATES HE IS LEAVING TO GO TO [facility] AND AN AMBULANCE IS ON THEIR WAY. WAITING FOR OUR LICENSED BONDSMAN TO COME SEE HIM. STATES HE DOES NOT WANT TO HERE AND WANTS TO IN A [facility].
--- NOTE | 2019-09-30 09:00 | NUR ---
PT STATES TYLENOL MOSTLY EFFECTIVE. SEEMS TO BE LESS AGITATED AT THIS MOMENT. WLL CONTINUE TO MONITOR. BED ALARM ON. CALL LIGHT WITHIN REACH
--- NOTE | 2019-09-30 10:25 | NUR ---
[facility] CALLED FOR INTAKE INFORMATION
--- NOTE | 2019-09-30 10:45 | NUR ---
Silver Recovery Operator in to see patient. Patient wishes to be transferred to [facility]. He states he is 100% service connected and a combat . Dr. Smith in room and will work on transfer to [facility].
--- NOTE | 2019-09-30 10:52 | NUR ---
[facility]ed [facility]. patient has been accepted there and is ok to go when medically stable for discharge.
[2019-09-30 12:00] VITALS: BP 113/92
--- NOTE | 2019-09-30 13:19 | NUR ---
Received call from Cecelia at [facility] regarding patient's discharge planning. Update given.
--- NOTE | 2019-09-30 13:30 | NUR ---
VP STRATEGIC PLANNING REACHED OUT TO [facility] TO SEE IF THE PATIENT IS SERVICE CONNECTED.
--- NOTE | 2019-09-30 13:54 | NUR ---
Attempted to reach out to the [place] [facility] regarding patient's service connection. No answer. Will reach out at a later time.
--- NOTE | 2019-09-30 15:24 | NUR ---
Spoke to the [place] [facility]. His case is currently under review and give the casework specialist until tomorrow to see if patient will be able to transfer to [facility].
--- NOTE | 2019-09-30 15:43 | NUR ---
SAW CLEANER WAS CALLED IN TO THE PATIENTS ROOM TO SPEAK WITH HIM. SAW CLEANER EXPLAINED WE ARE WAITING ON A BED FOR [facility]. PATIENT STATED "CALL THEM AND TELL THEM I'M DYING AND THAT ITS URGENT." SAW CLEANER ATTEMPTED TO EXPLAIN THAT WE ARE WAITING FOR IT TO BE REVIEWED AND A BED TO BECOME AVAILABLE. PATIENT STATED "JUST PUT ME IN AN AMBULANCE AND SEND ME THERE." SAW CLEANER ATTEMPTED TO EXPLAIN IT IS NOT THAT SIMPLE. PSYCHODRAMATIST HAS ALREADY REACHED OUT TO INTAKE AT [facility] AND EVERYTHING IS UNDER REVIEW.
[2019-09-30 16:00] VITALS: BP 132/90
--- NOTE | 2019-09-30 16:28 | NUR ---
Currently up in chair. Marcella PORTILLO .
--- NOTE | 2019-09-30 18:53 | NUR ---
1730 ASSISTED BACK INTO BED, C/O BURNING IN MOUTH, WHITE PATCHES PRESENT OVER tongue surface. Dr. Zapata was notified and orders recieved.
[2019-09-30 20:00] VITALS: BP 142/72
--- NOTE | 2019-09-30 21:03 | NUR ---
24 HR chart check completed.
--- NOTE | 2019-09-30 23:05 | NUR ---
PT REFUSING TO BE PLACED ON BIPAP. SpO2 IS 97% ON 12L HFNC.
[2019-10-01] VITALS: BP 150/61
--- NOTE | 2019-10-01 01:02 | NUR ---
PATIENT RESTING IN BED. WEARING HIGH FLOW CANNULA. VITALS WNL. NO COMPLAINTS AT THIS TIME. PATIENT STATED HE WANTS TO GO TO [facility]. CALL LIGHT WITHIN REACH. BED ALARM ON. WILL CONTINUE TO MONITOR.
--- NOTE | 2019-10-01 03:44 | NUR ---
PT IS STILL REFUSING TO WEAR BIPAP. DUONEB TX GIVEN VIA NEBULIZER MASK. SpO2 95% ON 12L HFNC.
--- NOTE | 2019-10-01 03:46 | NUR ---
WENT IN WITH AIDE TO CHANGE PATIENT. SHE ASKED IF HE WAS READY TO GET WASHED UP. HE STATED "NO I DON'T WANT ONE. I JUST WANT TO BE LEFT ALONE RIGHT NOW." CALL LIGHT WITHIN REACH. WEARING OXYGEN. NEW BRIEF ON PATIENT. WILL CONTINUE TO MONITOR.
--- NOTE | 2019-10-01 06:12 | NUR ---
PATIENT REFUSING TO KEEP HIS PULSE OX ON. PATIENT ALSO REFUSED HIS BIPAP LAST NIGHT. RATIONALE EXPLAINED FOR USE OF PULSE OX AND BIPAP. PATIENT STATED HE WANTED LEFT ALONE AND TRANSFERRED TO [facility]. I TOLD HIM THAT I WAS NOT IN CONTROL OF TRANSFERS AND THAT THEY WERE WORKING ON IT. PATIENT SEEMINGLY UPSET. WILL CONTINUE TO MONITOR.
[2019-10-01 06:16] LABS: HEMATOCRIT 38.4 % (42.0-52.0); MEAN CELL VOLUME 94.8 fl (80.0-94.0); MEAN CORPUSCULAR HGB 30.9 pg (27.0-31.0); MEAN CORPUSCULAR HGB CONC 32.6 g/dl (33.0-37.0); MEAN PLATELET VOLUME 10.7 fl (9.6-12.3); PLATELET COUNT AUTOMATED 89 10*3/uL (130-400); RED BLOOD COUNT 4.05 10*6/uL (4.50-5.90); RED CELL DISTRI WIDTH 12.6 % (0-14.5); WHITE BLOOD COUNT 8.8 10*3/uL (4.8-10.8)
[2019-10-01 06:23] LABS: ALBUMIN 1.7 gm/dl (3.1-4.5); ALKALINE PHOSPHATASE 81 U/L (45-117); BUN 6 mg/dl (7-24); CHLORIDE 103 mmol/L (98-107); CREATININE 0.45 mg/dL (0.70-1.30); POTASSIUM 3.3 mmol/L (3.5-5.1); SGOT/AST 41 IU/L (3-35); SGPT/ALT 38 U/L (12-78); SODIUM 137 mmol/L (136-145); TOTAL PROTEIN 5.6 gm/dL (6.4-8.2)
--- NOTE | 2019-10-01 07:30 | NUR ---
PT RESTING IN BED. RESPS EASY AND NON LABORED. VSS. WHITE BOARD UPDATED. POC DISCUSSED W PT. 12L HFNC INTACT-SPO2 >93%. SCATTERED RHONCHI/WHEEZES NOTED. HARSH COUGH W THICK BLOOD TINGED SPUTUM. SOB W MINIMAL EXERTION. WHITE PATCHES NOTED ON INSDIE OF MOUTH AND TONGUE- ON ORAL NYSTATIN. CONTINUES TO REFUSE BIPAP.A/O X3. PT REQUESTING TO GO TO [facility]PROC[facility] STARTED. WILL CONTINUE TO MONITOR CLOESELY. CALL LIGHT [employer] PharmaceuticalsHTIN REACH. BED ALRM ON.
[2019-10-01 07:33] LABS: PLATELET SUFFICIENCY LOW (NORMAL); TOTAL CELLS COUNTED 100 #CELLS
--- NOTE | 2019-10-01 07:41 | NUR ---
DR RUBIO INFORMED PT POTASSIUM 3.3 THIS MORNING. STATES TO PUT IN TO GIVE 40 MEQ OF K-DUR PO NOW.
[2019-10-01 08:00] VITALS: BP 142/86
--- NOTE | 2019-10-01 08:40 | NUR ---
PHYSICAL THERAPY Patient was supine in bed this am when approached for therapy and stated he was not feeling well, requesting to be seen this pm if feeling better. Will continue per POC as able. Tyrell Morton, PILLOWCASE FOLDER
--- NOTE | 2019-10-01 09:03 | NUR ---
Faxed updated clinical to the [facility] for transfer
--- NOTE | 2019-10-01 09:40 | NUR ---
PTS COVID TEST NEGATIVE. PT VERY JOYFUL TO BE ALOUD OUT OF HIS ROOM.
--- NOTE | 2019-10-01 09:41 | NUR ---
PT CALLED [facility] TO SEE IF THEY STILL HAVE HIS BED HELD FOR HIM. THEY STATED THEY DID NOT--PT BECAME UPSET AND YELLED "WHAT THE F$%K AM I SUPPOSED TO DO NOW" THEN PROCEEDED TO THROW HIS CELL PHONE AT THE WALL. TALKED W PATIENT REGARDING BEHAVIOR. PT APOLOGETIC. STATES HE DOES NOT WANT TO RELAPSE AGAIN. EXPLAINED TO HIM THAT I WOULD CALL [facility] AND WE WILL GET SOMETHING SET UP FOR HIM. PT AGREEABLE AND CALM AT THIS TIME. WILL CONTINUE TO MONITOR
--- NOTE | 2019-10-01 11:13 | NUR ---
Spoke to Belén at the [facility]. Belén states patient can go to an LTAC or a SNF. Hospitalist nurse director notified.
--- NOTE | 2019-10-01 11:26 | NUR ---
Discussed with patient [facility]'s request for him to either go to an LTAC or a SNF. He is very upset and states he will call his congressman and the President of the [place] because he is a 100% [place] war combat . He wanted to know who this CM spoke to. Explained this CM spoke to a CM named Belén at the [facility]. Explained that reaching out to his congressman and the President will take some time but in the mean time a discharge plan needs to be figured out for when he is stable to be discharged from our facility. Discussed his O2 flow rate being too high at this time to go where he is [facility]. Discussed an LTAC. When provided with a list of LTAC facilities he chose [facility] in [place]. He is hesitantly agreeable and states he will continue to fight this whole situation with [facility] not taking him there while he is at [facility]. retail planner notified.
--- NOTE | 2019-10-01 11:43 | NUR ---
Patient cannot go to [facility] while on oxygen above 10 liters. He is now agreeable to LTACH at [facility]. Contacted [facility] and faxed referral, waiting on review/acceptance.
--- NOTE | 2019-10-01 11:59 | NUR ---
PTS FAMILY CALLED. UPDATED ON POC. QUESTIONS ANSWERED
[2019-10-01 12:00] VITALS: BP 140/82
--- NOTE | 2019-10-01 13:50 | NUR ---
PHYSICAL THERAPY Patient was in bed having a late lunch when approached a second time for therapy treatment. Will continue per POC as able. Tyrell Morton, GAS METER INSTALLER HELPER
--- NOTE | 2019-10-01 14:15 | NUR ---
Bailer Operators Supervisor called to patient's room. Patient states he doesn't want to go to [facility] now. He [facility]. Explained at this time he is not able to go to [facility] as his O2 requirements are too high. He asked how it could be lowered. Explained about his pneumonia. He states he does get up and move in the room. Discussed his I.S. which he states he is willing to use more but it is across the room. I.S. given to patient and he is currently using. He states he is going to write a letter to [facility] because there is no reason they should not have admitted him there. His main concern at this time is getting to [facility] to be near his and he states he will get up and move more and use his I.S. as much as possible. liaison planner notified.
--- NOTE | 2019-10-01 14:51 | NUR ---
Patient accepted to [facility] and would be able to go tomorrow 10/02/2019, however patient is now refusing to go to LTACH. Wants to work on getting his oxygen level down to 10 liters so he can [facility] . [facility] stated they can take patient at 10 liters but would have to order a high flow tank and a bipap.
--- NOTE | 2019-10-01 15:10 | NUR ---
PATIENT REQUESTED BI-PAP, APPEARS TO BE TOLERATING WELL.
--- NOTE | 2019-10-01 15:30 | NUR ---
BI-PAP TAKEN OFF, PLACED ON 12 L/M HIGH FLOW.
--- NOTE | 2019-10-01 15:31 | NUR ---
PT REFUSED KDUR STATING HE ALREADY TOOK HIS POTASSIUM THIS MORNING.
--- NOTE | 2019-10-01 15:35 | NUR ---
PTS BP 164/[address] RUBIO WHO STATES TO GIVE THE 2200 DOSE OF LOPRESSOR NOW.
[2019-10-01 15:51] VITALS: BP 164/98
[2019-10-01 17:03] VITALS: BP 156/84
--- NOTE | 2019-10-01 17:03 | NUR ---
BP NOW 156/84
--- NOTE | 2019-10-01 19:00 | NUR ---
ASSUMED CARE FOR THIS PT AT THIS TIME. PT AWAKE IN BED WATCHING TV. RESPS LABORED AND TACHY, RHONCHI NOTED THROUGHOUT, HARSH COUGH NOTED, DYSPNEA AT REST NOTED WELL. BED ALARM ON W/CALL LIGHT IN REACH.
--- NOTE | 2019-10-01 19:35 | NUR ---
PT MEDICATED W/MORPHINE IVP FOR C/O "ALL OVER PAIN". PT RESTING QUIETLY IN BED WATCHING TV. CALL LIGHT IN REACH.
[2019-10-01 20:00] VITALS: BP 153/97
[2019-10-02] VITALS: BP 157/94
--- NOTE | 2019-10-02 01:45 | NUR ---
PATIENT'S HEART RATE KEEPS JUMPING UP INTO THE 130'S AND THEN BACK DOWN INTO THE LOWER 100'S WHILE RESTING IN BED. NOTIFIED DR BEARDEN AND HE STATED TO CALL HIM BACK IN AN HOUR WITH THE PATIENT'S HEART RATE.
--- NOTE | 2019-10-02 03:45 | NUR ---
NOTIFIED DR BEARDEN THAT PATIENT'S HEART RATE IS STILL JUMPING UP INTO THE 130'S. HE STATED HE WOULD INCREASE THE PATIENT'S BETA SOURAV. NO FURTHER ORDERS RECIEVED.
--- NOTE | 2019-10-02 05:45 | NUR ---
NOTIFIED DR BEARDEN THAT CORNER BEAD OPERATOR CALLED ME AND STATED PATIENT HAD A 40 BEAT RUN OF [facility]. HE SAID HE WOULD BE UP TO LOOK AT THE STRIPS.
--- NOTE | 2019-10-02 06:15 | NUR ---
NOTIFIED DR WHITE ANSWERING SERVICE OF CONSULT FOR 40 BEAT RUN OF VTA.
[2019-10-02 06:28] LABS: BUN 6 mg/dl (7-24); CHLORIDE 102 mmol/L (98-107); CREATININE 0.61 mg/dL (0.70-1.30); POTASSIUM 3.5 mmol/L (3.5-5.1); SODIUM 136 mmol/L (136-145)
[2019-10-02 06:29] LABS: BASO % 0.2 % (0.0-1.0); EOS # 0.1 10*3/uL (0.0-0.4); EOS % 0.6 % (1.0-4.0); HEMATOCRIT 37.7 % (42.0-52.0); LYMPH # 0.9 10*3/uL (1.3-4.4); LYMPH % 7.7 % (27.0-41.0); MEAN CELL VOLUME 94.7 fl (80.0-94.0); MEAN CORPUSCULAR HGB 31.4 pg (27.0-31.0); MEAN CORPUSCULAR HGB CONC 33.2 g/dl (33.0-37.0); MEAN PLATELET VOLUME 10.2 fl (9.6-12.3); MONO # 0.5 10*3/uL (0.1-1.0); MONO % 4.3 % (3.0-9.0); NEUT # 10.5 10*3/uL (2.3-7.9); NEUT % 86.5 % (47.0-73.0); PLATELET COUNT AUTOMATED 104 10*3/uL (130-400); RED BLOOD COUNT 3.98 10*6/uL (4.50-5.90); RED CELL DISTRI WIDTH 12.7 % (0-14.5); WHITE BLOOD COUNT 12.1 10*3/uL (4.8-10.8)
--- NOTE | 2019-10-02 06:36 | NUR ---
LAB CALLED WITH CRITICAL TROPONIN OF 0.075. NOTIFIED DR SALAS. NO NEW ORDERS.
[2019-10-02 08:00] VITALS: BP 146/66
--- NOTE | 2019-10-02 08:50 | NUR ---
DISCUSSED CODE STATUS WITH PATIENT, PT WOULD LIKE TO BE A DNRCC, PT VERBALIZED UNDERSTANDING OF WHAT DNRCC CODE STATUS MEANT, NOTIFIED AND PAPERS SIGNED BY PHYSICIAN AND PATIENT
--- NOTE | 2019-10-02 09:07 | NUR ---
Patient accepted to [facility] in [place]; updated clinicals faxed. [facility] is asking for a later in the afternoon discharge. notified CM
--- NOTE | 2019-10-02 09:30 | NUR ---
PHYSICAL THERAPY Per discussion with CM, patient to be d/c to [facility] this pm. Will continue per POC as able. Tyrell Morton, IMMIGRATION SERVICES OFFICER
--- NOTE | 2019-10-02 09:34 | NUR ---
NOTIFIED OF TROPONIN LEVEL
--- NOTE | 2019-10-02 09:34 | NUR ---
Patient has been accepted to [facility]. Covid 19 negative, hospital exemption complete, patient is ok to go today if medically stable for discharge.
--- NOTE | 2019-10-02 10:43 | NUR ---
CM and SW in to see patient to discuss discharge planning. Discussed [facility] in [place] and he states he wants to go where his is. Discussed [facility] only take him if his O2 requirements is at or less than 8L and that he has been on 12L for days. Explained it will take some time for his O2 requirements to come down. He asked what kind of place he would be going to. Explained he would still get 24 hour care as it is a step down from a hospital but a step up from a SNF. He hesitantly agreed to go to [facility]. Dr. Smith and hospitalist nurse director notified.
[2019-10-02] MEDS ORDERED: VANCO 1.251.25 GM/25 IV (11:38)
[2019-10-02] MEDS ORDERED: Nystatin 100,000 UNI PO (11:38)
[2019-10-02] MEDS ORDERED: UNASYN 3 GM VIAL3 GM IV (11:38)
[2019-10-02 12:00] VITALS: BP 151/69
--- NOTE | 2019-10-02 12:41 | NUR ---
AWARE OF TROPONIN LEVELS
--- NOTE | 2019-10-02 15:38 | NUR ---
Discharge instructions reviewed with patient/family. Patient receptive and verbalizes understanding. Follow-up care arranged. Written instructions given to patient/family. MARIELY GREEN
--- NOTE | 2019-10-03 09:59 | NUR ---
PHYSICAL THERAPY CO-SIGN I approve of the Physical Therapy notes written above. KARLA DEGROOT PT, DPT
== END 2019-10-02 16:05 | DRG 177 ==
LOC: ED 15:20 → EDHOLD 18:12 → 4E 18:12
PROVIDERS: Emergency Medicine; Hospitalist; Internal Medicine; Internal Medicine Critical Care Medicine; Student in an Organized Health Care Education/Training Program; ADMIT Student in an Organized Health Care Education/Training Program
PROC: 5A09357 Assistance with Respiratory Ventilation, Less than 24 Consecutive Hours, Continuous Positive Airway Pressure (ICD-10-PCS; principal; 2019-09-25)
PROC: 5A09357 Assistance with Respiratory Ventilation, Less than 24 Consecutive Hours, Continuous Positive Airway Pressure (ICD-10-PCS; 2019-09-26)
PROC: 5A09357 Assistance with Respiratory Ventilation, Less than 24 Consecutive Hours, Continuous Positive Airway Pressure (ICD-10-PCS; 2019-09-29)
PROC: 5A09357 Assistance with Respiratory Ventilation, Less than 24 Consecutive Hours, Continuous Positive Airway Pressure (ICD-10-PCS; 2019-10-01)
DX: J69.0 Pneumonitis due to inhalation of food and vomit (principal); I50.33 Acute on chronic diastolic (congestive) heart failure; J96.21 Acute and chronic respiratory failure with hypoxia; N17.0 Acute kidney failure with tubular necrosis; J96.22 Acute and chronic respiratory failure with hypercapnia; J44.1 Chronic obstructive pulmonary disease with (acute) exacerbation; E44.0 Moderate protein-calorie malnutrition; F33.0 Major depressive disorder, recurrent, mild; I48.21 Permanent atrial fibrillation; E87.3 Alkalosis; K56.609 Unspecified intestinal obstruction, unspecified as to partial versus complete obstruction; E87.1 Hypo-osmolality and hyponatremia; R73.9 Hyperglycemia, unspecified; K21.9 Gastro-esophageal reflux disease without esophagitis; F43.10 Post-traumatic stress disorder, unspecified; M48.00 Spinal stenosis, site unspecified; M54.5 Low back pain; G89.29 Other chronic pain; I25.10 Atherosclerotic heart disease of native coronary artery without angina pectoris; R73.03 Prediabetes; R22.1 Localized swelling, mass and lump, neck; E87.6 Hypokalemia; E87.8 Other disorders of electrolyte and fluid balance, not elsewhere classified; D69.6 Thrombocytopenia, unspecified; D72.810 Lymphocytopenia; R13.10 Dysphagia, unspecified; I11.0 Hypertensive heart disease with heart failure; Z96.651 Presence of right artificial knee joint; Z96.642 Presence of left artificial hip joint; I35.0 Nonrheumatic aortic (valve) stenosis; G47.30 Sleep apnea, unspecified; R00.1 Bradycardia, unspecified; E83.39 Other disorders of phosphorus metabolism; E66.9 Obesity, unspecified; Z66 Do not resuscitate; Z51.5 Encounter for palliative care; Z20.828 Contact with and (suspected) exposure to other viral communicable diseases; F41.1 Generalized anxiety disorder; G47.33 Obstructive sleep apnea (adult) (pediatric); Z99.81 Dependence on supplemental oxygen; Z88.8 Allergy status to other drugs, medicaments and biological substances; Z91.041 Radiographic dye allergy status; Z90.49 Acquired absence of other specified parts of digestive tract; Z82.49 Family history of ischemic heart disease and other diseases of the circulatory system; Z83.79 Family history of other diseases of the digestive system; Z82.3 Family history of stroke; Z81.2 Family history of tobacco abuse and dependence; Z80.8 Family history of malignant neoplasm of other organs or systems; Z87.01 Personal history of pneumonia (recurrent); Z85.21 Personal history of malignant neoplasm of larynx; I25.2 Old myocardial infarction; Z79.899 Other long term (current) drug therapy; Z79.82 Long term (current) use of aspirin; Z87.11 Personal history of peptic ulcer disease; Z95.2 Presence of prosthetic heart valve